=== PATIENT | female | born 1945 | race Caucasian/White ===

== ENCOUNTER → 2018-06-08 | Emergency (ER) | payer MEDICARE, MEDICAID ==
[~2018-06-08] MED LIST: Adacel (T-DAP) 0.5 ML VIAL ONE; Lidocaine 1% (PF) 30 ML VIAL ONE
[2018-06-08 15:34] LABS: #Basophils 0.1 thou/uL (0.0-0.2); #Eosinphils 0.1 thou/uL (0.0-0.7); #Lymphocytes 1.2 thou/uL (1.20-3.40); #Monocytes 0.7 thou/uL (0.11-0.59); #Neutrophils 2.9 thou/uL (1.40-6.50); %Basophils 1.1 % (0.0-1.0); %Eosinophils 1.4 % (0.0-10.0); %Lymphocytes 24.9 % (21.0-51.0); %Monocytes 14.2 % (0.0-10.0); %Neutrophils 58.4 % (42.0-75.0); Hemoglobin 12.4 g/dL (12.0-16.0); Mean Corpuscular HGB CONC 34.7 g/dL (32.0-36.0); Mean Corpuscular Hemoglobin 35.5 pg (27.0-31.0); Mean Platelet Volume 7.1 fL (7.4-10.4); Platelet Count 166 thou/uL (130-400); Red Blood Cell (RBC) Count 3.49 mill/uL (4.20-5.40); White Blood Cell (WBC) Count 4.9 thou/uL (4.8-10.8)
[2018-06-08 15:42] LABS: INR-International Normal Ratio 1.1; PTT 32.8 SEC (22.9-36.1); Prothrombin Time 14.7 SEC (12.0-14.7)
--- NOTE | 2018-06-08 15:47 | RAD ---
RIGHT KNEE FOUR VIEWS: History: 72-year-old female with history of right knee pain after a fall. Comparison: 08-17-17 FINDINGS: There is extensive soft tissue fullness and subcutaneous fat stranding which appears stable. Tricompa rtment degenerative and osteoarthrosis changes. No evidence for acute fracture or dislocation. IMPRESSION: Prominent soft tissues. Tricompartment degenerative changes without acute fracture. POS: [facility]
--- NOTE | 2018-06-08 15:50 | CT ---
HEAD CT WITHOUT CONTRAST: Comparison: 05-05-16 History: Fall, pain. Comparison: None. Technique: Noncontrast head CT is performed from skull base to skull vertex. FINDINGS: No parenchymal hemorrhage. No extraaxial hematoma. No midline shift. Basilar cisterns are patent. Bra in volume, age appropriate. Cortical swenson white matter differentiation is preserved. Ventricles and s ulci are patent and symmetric. Chronic small vessel ischemic changes white matter noted. Possible pineal cyst is noted. There is hyperdensity in the left maxillary sinus with evidence of left periorbital soft tissue swell ing. Hemorrhage due to trauma is suspected. Evaluation is incomplete. Refer to face CT for further de tails. Calvarium is intact. IMPRESSION: 1. No post-traumatic sequellae. 2. Left periorbital post-traumatic changes. Hyperdensity in the left maxillary sinus likely due to fr acture. Refer to facial CT report for further details. POS: [facility]
--- NOTE | 2018-06-08 15:51 | CT ---
CT CERVICAL SPINE: History: Cervical spine pain after fall. Neck pain. The patient is also complaining of tingling and n umbness. Technique: Noncontrast enhanced CT images cervical spine obtained. FINDINGS: Images demonstrate no evidence of acute cervical spine fractures. No evidence of subluxations or bony lesions seen. IMPRESSION: Normal CT cervical spine. POS: [facility]
[2018-06-08 15:54] LABS: ALT (SGPT) 14 U/L (8-55); AST (SGOT) 19 U/L (5-34); Albumin 3.5 g/dL (3.4-4.8); Alkaline Phosphatase 137 U/L (40-150); Anion Gap 13 mmol/L (10-20); BUN (Urea Nitrogen) 18 mg/dL (9.8-20.1); Bilirubin, Total 0.7 mg/dL (0.2-1.2); Calc. Creatinine Clearance 0 mL/min (70-130); Calcium 8.6 mg/dL (7.8-10.44); Carbon Dioxide 26 mmol/L (23-31); Chloride 96 mmol/L (98-107); Estimated GFR-MDRD 76; Globulin 2.6 g/dL (2.4-3.5); Glucose 134 mg/dL (83-110); Potassium 4.2 mmol/L (3.5-5.1); Protein, Total 6.1 g/dL (6.0-8.3); Sodium 131 mmol/L (136-145)
--- NOTE | 2018-06-08 16:03 | CT ---
FACE CT WITHOUT CONTRAST: History: Fall, post-traumatic pain and swelling. Comparison: None. Technique: Maxillofacial CT is performed in the axial plane. Sagittal and coronal reformatted images are submitted for interpretation. FINDINGS: Visualized brain parenchyma is unremarkable. Visualized aerodigestive tract is unremarkable. No obvious masses in the oral cavity. Evaluation is l imited by dental amalgam artifact. Midline fatty roof of the tongue is preserved. There is no prevert ebral soft tissue swelling. Visualized upper cervical vertebrae are unremarkable. There is adequate aeration of the visualized mastoid air cells. There is appropriate aeration of the visualized frontal sinuses, ethmoid air cells, sphenoid sinuses and right maxillary sinus. Zygomatic arches are intact. Maxilla and mandible are intact. Pterygoid plates are intact. Nasal bones are intact. There is left orbital soft tissue swelling and hematoma. Bilateral ocular lens implants are appropria tely located. Both globes are intact. Intraconal fat is preserved. There is induration of the fat in the inferior aspect of the left orbits. There are small pockets of air noted. There is a fracture in volving the anterior left orbital floor. There is induration of the inferior rectus muscle along the mid to distal aspect. Correlate clinically. Obvious entrapment is not appreciated. There is hyperdens ity in the left maxillary sinus due to post-traumatic hemorrhage. IMPRESSION: 1. Left orbital hematoma and swelling. 2. Left orbital floor fracture, minimally displaced. 3. Post-traumatic change of the left maxillary sinus. 4. Induration of the left inferior orbital rectus muscle. Correlate clinically for entrapment. POS: [facility]
== END ==
LOC: ERS 13:49
DX: S01.511A Laceration without foreign body of lip, initial encounter (principal); S00.83XA Contusion of other part of head, initial encounter; S05.12XA Contusion of eyeball and orbital tissues, left eye, initial encounter; S80.01XA Contusion of right knee, initial encounter; E11.9 Type 2 diabetes mellitus without complications; F41.9 Anxiety disorder, unspecified; F32.9 Major depressive disorder, single episode, unspecified; Z79.899 Other long term (current) drug therapy; W01.0XXA Fall on same level from slipping, tripping and stumbling without subsequent striking against object, initial encounter
CPT/HCPCS: 12011; 36415; 70450; 70486; 72125; 80053; 85025; 85610; 85730; 90471; 90715; J2001

== ENCOUNTER 2019-01-07 18:54 | Inpatient (IN) | payer MEDICARE, MEDICAID ==
--- NOTE | 2019-01-07 19:27 | RAD ---
CHEST ONE VIEW: History: Fever. Comparison: 07-10-18 FINDINGS: Heart size is mildly enlarged. There is mild engorgement of the right peritracheal soft tissues. Mild pulmonary venous congestion. No pneumothorax. IMPRESSION: Fullness of the right perihilar soft tissues and right peritracheal soft tissues. This may reflect en gorgement of the vascular pedicle. Follow up after diaresis is recommended. POS: [facility]
[2019-01-07 19:45] LABS: #Lymphocytes 0.7 thou/uL (1.20-3.40); #Monocytes 0.8 thou/uL (0.11-0.59); #Neutrophils 5.7 thou/uL (1.40-6.50); %Basophils 0.2 % (0.0-1.0); %Eosinophils 0.2 % (0.0-10.0); %Lymphocytes 9.7 % (21.0-51.0); %Monocytes 10.8 % (0.0-10.0); %Neutrophils 79.1 % (42.0-75.0); Hemoglobin 7.7 g/dL (12.0-16.0); Mean Corpuscular HGB CONC 33.1 g/dL (32.0-36.0); Mean Corpuscular Hemoglobin 33.8 pg (27.0-31.0); Platelet Count 233 thou/uL (130-400); RBC Distribution Width 16.3 % (11.5-14.5); Red Blood Cell (RBC) Count 2.26 mill/uL (4.20-5.40); White Blood Cell (WBC) Count 7.2 thou/uL (4.8-10.8)
[2019-01-07 20:04] LABS: ALT (SGPT) Less than 7 U/L (8-55); AST (SGOT) 12 U/L (5-34); Albumin 3.3 g/dL (3.4-4.8); Alkaline Phosphatase 95 U/L (40-150); Anion Gap 17 mmol/L (10-20); BUN (Urea Nitrogen) 24 mg/dL (9.8-20.1); Bilirubin, Total 0.8 mg/dL (0.2-1.2); Calc. Creatinine Clearance 0 mL/min (70-130); Calcium 8.6 mg/dL (7.8-10.44); Carbon Dioxide 19 mmol/L (23-31); Chloride 103 mmol/L (98-107); Estimated GFR-MDRD 47; Globulin 3.2 g/dL (2.4-3.5); Glucose 170 mg/dL (83-110); Potassium 4.8 mmol/L (3.5-5.1); Protein, Total 6.5 g/dL (6.0-8.3); Sodium 134 mmol/L (136-145)
[2019-01-07] MEDS ORDERED: Sodium Chloride 0.9% 100 ML ONE ×2 (20:09→21:22)
[2019-01-07] MEDS ORDERED: cefTRIAXone\\ROCEPHIN 2 GM VIAL ONE (20:09)
[2019-01-07 20:45] LABS: Bilirubin Negative (Negative); Blood, Urine Large (Negative); Clarity TURBID (Clear); Glucose, Urine (Dipstick) Negative (Negative); Leukocyte Large (Negative); Nitrite Positive (Negative); Protein, Urine (Dipstick) 100 mg/dL (Neg-Trace); Specific Gravity, Urine 1.016 (1.002-1.036); Urobilinogen 0.2 mg/dL (0.2-1.0); pH, Urine 5.5 (5.0-9.0)
[2019-01-07 20:47] LABS: Bacteria/HPF 4+ HPF (None Seen); Hyaline Casts/LPF 7-10 HYALINE CAST LPF (0-3 Hyaline); Pathc Cast-AUWi Flag 2.33 (0-2.49); Squamous Epithelial None Seen HPF (0-3)
[2019-01-07] MEDS ORDERED: Azithromycin 500 MG VIAL ONE (21:22)
[2019-01-07] MEDS ORDERED: Ondansetron PF 4 MG/2 ML Vial IVP PRN (22:05)
[2019-01-07] MEDS ORDERED: Sodium Chloride 0.9% 1,000 ML IV SCH (22:15)
[2019-01-07] MEDS: Sodium Chloride 0.9% 1,000 ML IV SCH (23:54)
[2019-01-07] MEDS: Acetaminophen 325 MG TAB PO PRN (23:54)
[2019-01-08] MEDS ORDERED: Ibuprofen 600 MG TAB PO SCH (01:15)
[2019-01-08 02:10] LABS: #Lymphocytes 0.4 thou/uL (1.20-3.40); #Monocytes 0.1 thou/uL (0.11-0.59); #Neutrophils 3.1 thou/uL (1.40-6.50); %Eosinophils 0.5 % (0.0-10.0); %Lymphocytes 9.8 % (21.0-51.0); %Monocytes 3.6 % (0.0-10.0); %Neutrophils 86.1 % (42.0-75.0); Hemoglobin 10.4 g/dL (12.0-16.0); Mean Corpuscular HGB CONC 32.9 g/dL (32.0-36.0); Mean Corpuscular Hemoglobin 32.9 pg (27.0-31.0); Mean Platelet Volume 7.1 fL (7.4-10.4); Platelet Count 161 thou/uL (130-400); RBC Distribution Width 16.3 % (11.5-14.5); Red Blood Cell (RBC) Count 3.17 mill/uL (4.20-5.40); White Blood Cell (WBC) Count 3.6 thou/uL (4.8-10.8)
--- NOTE | 2019-01-08 02:17 | HP ---
CHIEF COMPLAINT: Fever. HISTORY OF PRESENT ILLNESS: She is a 73-year-old woman with history of hypertension, rheumatoid arthritis, and hyperlipidemia, presented to the ER with fever of 101. The patient complained of fever for last 1 day with burning sensation with urination. No chest pain. No nausea, no vomiting, no diarrhea. She is not feeling well for few days. She does have some cough. No short of breath. PAST MEDICAL HISTORY: She has history of hypertension, hyperlipidemia, rheumatoid arthritis, and diabetes. SOCIAL HISTORY: Denies alcohol, smoking, or drug history. FAMILY HISTORY: Noncontributory. MEDICATIONS: Medicines taking at home are, 1. Clonidine 0.1 mg b.i.d. 2. Metoprolol 50 mg b.i.d. 3. Losartan 100 mg daily. 4. Insulin sliding protocol. 5. Insulin Lantus 45 in the morning. 6. Lasix 20 mg daily. 7. Lipitor 10 mg daily. REVIEW OF SYSTEMS: CONSTITUTIONAL: She does have fever. No chills. EYES: Denies any eye pain or any vision changes. ENT: Denies any sore throat or rhinorrhea. CARDIOVASCULAR: Denies any chest pain, short of breath, or palpitations. RESPIRATORY: She does have some cough. No short of breath. No wheezing. GI: Denies any nausea, vomiting, abdominal pain, any diarrhea, hematemesis, or melena. GENITOURINARY: She does have reports of dysuria. Denies any frequency or urgency. MUSCULOSKELETAL: Negative musculoskeletal review of systems. SKIN: No rash. Dry. NEUROLOGICAL: She denies any headache or any mental status changes. PHYSICAL EXAMINATION: GENERAL: She is an elderly woman, lying in the bed, not in distress. VITAL SIGNS: She has pulse 80, blood pressure 120/80, respiratory rate 20, and temperature 101. HEENT: Head is atraumatic and normocephalic. Pupils are round and reactive. Extraocular movements are intact. Nose and throat, normal. Tongue, mucosa moist. NECK: Supple. No JVD. CHEST: Shows normal vesicular breathing. No added sounds. CVS: S1 audible. No S3 or S4. ABDOMEN: Soft. Bowel sounds are audible. No organomegaly. No CVA angle tenderness. EXTREMITIES: Trace pedal edema. DANCE ENTERTAINER: Alert x3. No focal deficits. DIAGNOSTIC STUDIES: LABORATORY RESULTS: Urine shows large leukocyte esterase, 11 to 20 rbc, wbc greater than 50. WBC is 7.2, hemoglobin 7.7, hematocrit 23.1, and platelet count 233. Sodium 134, potassium 4.8, chloride 103, carbon dioxide 19, BUN 24, creatinine 1.13, lactic acid 2.6, calcium 8.6, and troponin less than 0.012. BNP 157.8. Albumin 3.3. IMAGING STUDIES: Chest x-ray shows mild pulmonary congestion. ASSESSMENT: 1. Sepsis with urinary tract infection. 2. Acute kidney injury. 3. Hyponatremia. 4. Chronic blood loss anemia. PLAN: 1. Sepsis with UTI. Sepsis protocol. IV fluids. IV cefepime 2 g 12 hourly and follow blood culture and urine culture. 2. Acute kidney injury with hypovolemia with sepsis with urinary tract infection. Continue IV fluids. Monitor BMP. 3. Hyponatremia, mild, 134. Continue IV fluid and monitor BMP. 4. Anemia. Hemoglobin is 7.7. Could be chronic blood loss. We will continue to monitor and check iron studies and ferritin and TIBC. Transfuse if less than 7. 5. DVT prophylaxis. SCDs. No Lovenox because there could be history of bleeding. 6. Full code. Job ID: [id number]
[2019-01-08 02:26] LABS: Lactic Acid 2.6 mmol/L (0.5-2.2)
[2019-01-08 02:32] LABS: Anion Gap 13 mmol/L (10-20); BUN (Urea Nitrogen) 20 mg/dL (9.8-20.1); Calc. Creatinine Clearance 80 mL/min (70-130); Calcium 8.3 mg/dL (7.8-10.44); Carbon Dioxide 22 mmol/L (23-31); Chloride 105 mmol/L (98-107); Estimated GFR-MDRD 50; Glucose 163 mg/dL (83-110); Potassium 4.1 mmol/L (3.5-5.1); Sodium 136 mmol/L (136-145)
[2019-01-08] MEDS: Vancomycin HCl 1.75 GM in Sodium Chloride 0.9% 500 ML IVPB SCH (03:54)
[2019-01-08] MEDS: Sodium Chloride 0.9% 1,000 ML IV SCH ×3 (05:16→21:35)
[2019-01-08] MEDS ORDERED: cloNIDine 0.1 MG TAB PO PRN (08:30)
[2019-01-08] MEDS: Cefepime 2 GM in Sodium Chloride 0.9% 100 ML IVPB SCH ×2 (08:35→20:13)
[2019-01-08] MEDS: Loratadine 10 MG TAB PO SCH (10:34)
[2019-01-08] MEDS: Hydroxychloroquine Sulfate 200 MG TAB PO SCH ×2 (10:34→20:13)
[2019-01-08] MEDS ORDERED: Dextrose 50% Abboject 50 ML SYRINGE SLOW IVP PRN (11:47)
[2019-01-08] MEDS ORDERED: Dextrose 5% in Water 1,000 ML IV PRN (11:47)
[2019-01-08] MEDS: Bupropion 150 MG SR TAB PO SCH (12:08)
[2019-01-08] MEDS: HumaLOG 300 UNITS/3 ML VIAL SC PRN ×2 (12:09→16:30)
[2019-01-08] MEDS: Atorvastatin Calcium 10 MG TAB PO SCH (20:13)
[2019-01-08] MEDS ORDERED: Polyethylene Glycol 3350 17 GM Packet PO PRN (21:52)
[2019-01-08] MEDS ORDERED: guaiFENesin ER 600 MG TAB PO SCH (22:00)
[2019-01-08] MEDS ORDERED: Doxepin HCl 25 MG CAP PO SCH (22:00)
[2019-01-09] MEDS: Acetaminophen 325 MG TAB PO PRN ×3 (00:44→21:30)
[2019-01-09] MEDS: Sodium Chloride 0.9% 1,000 ML IV SCH ×3 (01:30→16:00)
[2019-01-09] MEDS: Vancomycin HCl 1.75 GM in Sodium Chloride 0.9% 500 ML IVPB SCH (03:54)
[2019-01-09] MEDS: Bupropion 150 MG SR TAB PO SCH (08:16)
[2019-01-09] MEDS: Cefepime 2 GM in Sodium Chloride 0.9% 100 ML IVPB SCH ×2 (08:16→20:10)
[2019-01-09] MEDS: Hydroxychloroquine Sulfate 200 MG TAB PO SCH (08:16)
[2019-01-09] MEDS: guaiFENesin ER 600 MG TAB PO SCH ×2 (08:16→20:09)
[2019-01-09] MEDS: Loratadine 10 MG TAB PO SCH (08:16)
[2019-01-09 12:03] LABS: Bilirubin Negative (Negative); Blood, Urine Moderate (Negative); Clarity CLOUDY (Clear); Glucose, Urine (Dipstick) Negative (Negative); Leukocyte Large (Negative); Nitrite Negative (Negative); Protein, Urine (Dipstick) 30 mg/dL (Neg-Trace); Specific Gravity, Urine 1.011 (1.002-1.036); Urobilinogen 0.2 mg/dL (0.2-1.0)
[2019-01-09 12:05] LABS: Squamous Epithelial 0-3 HPF (0-3)
[2019-01-09 12:06] LABS: Pathc Cast-AUWi Flag 2.61 (0-2.49); Yeast-AUWi Flag 68.1 (0-25.0)
[2019-01-09 12:21] LABS: Hyaline Casts/LPF NONE SEEN LPF (0-3 Hyaline); WBC/HPF 21-50 HPF (0-3); Yeast-All Forms None Seen HPF (None Seen)
[2019-01-09 12:29] LABS: Bacteria/HPF Rare-Few HPF (None Seen); Urine Culture Reflex Yes Yes
[2019-01-09] MEDS: HumaLOG 300 UNITS/3 ML VIAL SC PRN ×3 (12:30→21:13)
--- NOTE | 2019-01-09 15:39 | CT ---
ABDOMEN CT WITHOUT CONTRAST PELVIC CT WITHOUT CONTRAST: Date: 01/09/19 HISTORY: Urosepsis. Urinary tract infection. COMPARISON: 04/26/16. FINDINGS: Indeterminate nodules in the right lower lobe measuring 5 and 6 mm. Heart size is upper normal. There are coronary artery calcifications. No significant pericardial fluid. Visualized aorta demonstrates atherosclerosis. No aneurysm. Limited evaluation of the solid organs due to lack of IV contrast. There is a hypodensity in the prox imal body of the pancreas measuring 2.9 x 1.7 cm, worrisome for a pancreatic neoplasm until proven ot herwise. Evaluation is limited due to technique. Limited evaluation of the remaining solid organs. Un remarkable gallbladder. There is no evidence of right-sided obstructive uropathy. There is marked dilatation of the left mary l pelvis and proximal left ureter. Hyperdense material in the lumen of the left renal pelvis and prox imal ureter, likely representing multiple stones versus hemorrhage/debris. Retrograde IVP may be bene ficial. Remainder of the left ureter is unremarkable. There is fluid tracking along both paracolic gutters, left greater than right. No mesenteric mass, free air, or lymphadenopathy. There is stranding of the fat adjacent to both common iliac arteries. Symmetric attenuation of the ps oas muscles. Limited evaluation of the alimentary canal due to lack of oral contrast. Gastric mucosa, duodenum, an d multiple normal caliber small bowel loops are identified. Ileocecal junction is normal. Colon gross ly unremarkable. Uterus and adnexal structures are unremarkable. There is evidence of soft tissue attenuation along th e superior left aspect of the uterine fundus, incompletely evaluated. The possibility of a uterine le iomyoma is raised. Unremarkable urinary bladder. No lytic or blastic lesions in the osseous structures. IMPRESSION: 1. Complex mass associated with the proximal pancreas, presumed to be malignancy until proven otherw ise. 2. Multiple hypodense nodules in the lung parenchyma, presuming to be metastatic disease until prove n otherwise. 3. Hyperdensities in lumen of left extrarenal collecting system which may represent small stones, bl ood products, or sediment/debris in the collecting system. Urology consultation for possible retrogra de IVP is recommended. 4. Nodules in right lower lobe, presumed to be metastasis until proven otherwise. Results of study discussed with Dr. Hermosillo on 01/09/19 at 1504 hours. CODE CR. POS: [facility]
--- NOTE | 2019-01-09 16:47 | PDOC.PN ---
- Subjective Encounter Start Date: 01/09/19 Encounter Start Time: 10:00 Subjective: pt up in bed no complains - Objective Resuscitation Status - Order Detail: 01/07/19 22:05 Resuscitation Status Routine Resuscitation Status: FULL: Full Resuscitation Discussed with: patient Vital Signs & Weight: Vital Signs (12 hours) Temp Pulse Resp BP BP Pulse Ox 01/09/19 15:50 98.5 F 99 18 102/69 94 L 01/09/19 13:05 98 16 125/69 95 01/09/19 11:43 98.5 F 98 16 107/57 L 107 H 01/09/19 09:49 129/63 01/09/19 09:09 96 01/09/19 07:36 98.4 F 96 16 134/80 96 Weight Admit Weight 238 lb 9.6 oz Weight 238 lb 9.6 oz I&O: 01/08/19 01/09/19 01/10/19 06:59 06:59 06:59 Intake Total 3275 2350 Balance 3275 2350 Result Diagrams: 01/08/19 02:01 01/08/19 02:01 Additional Labs: Accuchecks 01/09/19 01/09/19 01/08/19 11:41 05:04 20:07 POC Glucose 195 H 99 157 H Phys Exam - Physical Examination Neck: no nodes, no JVD, supple, full ROM Respiratory: no wheezing, no rales, no rhonchi, wheezing present, clear to auscultation bilateral Cardiovascular: RRR, no significant murmur, no rub, gallop, irregular Gastrointestinal: soft, non-tender, no distention, positive bowel sounds Dx/Plan (1) Complicated UTI (urinary tract infection) Code(s): N39.0 - URINARY TRACT INFECTION, SITE NOT SPECIFIED Status: Acute (2) Bacteremia Code(s): R78.81 - BACTEREMIA Status: Acute (3) SLE (systemic lupus erythematosus) Code(s): M32.9 - SYSTEMIC LUPUS ERYTHEMATOSUS, UNSPECIFIED Status: Chronic - Plan called lab about urine cx, which was not ordered. will resent another one -: will consult ID for bactremia -: will hold imuran * . Review of Systems - Review of Systems Cardiovascular: negative: chest pain, palpitations, orthopnea, paroxysmal nocturnal dyspnea, edema, light headedness, other Gastrointestinal: negative: Nausea, Vomiting, Abdominal Pain, Diarrhea, Constipation, Melena, Hematochezia, Other Genitourinary: negative: Dysuria, Frequency, Incontinence, Hematuria, Retention , Other - Medications/Allergies Allergies/Adverse Reactions: Allergies Allergy/AdvReac Type Severity Reaction Status Date / Time No Known Drug Allergies Allergy Verified 01/08/19 00:39 Medications: Current Medications Acetaminophen (Tylenol) 650 mg PO Q4H PRN PRN Reason: Headache/Fever/Mild Pain (1-3) Last Admin: 01/09/19 08:22 Dose: 650 mg Atorvastatin Calcium (Lipitor) 10 mg PO HS [facility] Last Admin: 01/08/19 20:13 Dose: 10 mg Bupropion HCl (Wellbutrin Sr) 300 mg PO DAILY [facility] Last Admin: 01/09/19 08:16 Dose: 300 mg Clonidine (Catapres) 0.1 mg PO BID PRN PRN Reason: BLOOD PRESSURE Dextrose/Water (Dextrose 50%) 25 gm SLOW IVP PRN PRN PRN Reason: Hypoglycemia Doxepin HCl (Sinequan) 25 mg PO [facility] Glucagon (Glucagon) 1 mg IM PRN PRN PRN Reason: Hypoglycemia Guaifenesin (Mucinex) 600 mg PO Q12HR [facility] Last Admin: 01/09/19 08:16 Dose: 600 mg Hydroxychloroquine Sulfate (Plaquenil) 200 mg PO BID [facility] Last Admin: 01/09/19 08:16 Dose: 200 mg Cefepime HCl 2 gm/ Sodium (Chloride) 100 mls @ 200 mls/hr IVPB Q12HR [facility] Last Admin: 01/09/19 08:16 Dose: 100 mls Vancomycin HCl 1.75 gm/ Sodium (Chloride) 500 mls @ 250 mls/hr IVPB 0400 [facility] Last Admin: 01/09/19 03:54 Dose: 500 mls Dextrose/Water (D5w) 1,000 mls @ 0 mls/hr IV .Q0M PRN PRN Reason: Hypoglycemia Sodium Chloride (Normal Saline 0.9%) 1,000 mls @ 75 mls/hr IV .[id number] [facility] Last Admin: 01/09/19 16:00 Dose: 1,000 mls Insulin Human Lispro (Humalog) 0 units SC .MILD SLIDING SCALE PRN PRN Reason: Mild Correctional Scale Last Admin: 01/09/19 15:59 Dose: 2 unit Loratadine (Claritin) 10 mg PO DAILY [facility] Last Admin: 01/09/19 08:16 Dose: 10 mg Miscellaneous Medication (Pharmacy To Dose) 1 each IVPB PRN PRN PRN Reason: . Ondansetron HCl (Zofran) 4 mg IVP Q6H PRN PRN Reason: Nausea/Vomiting Polyethylene Glycol (Miralax) 17 gm PO DAILYPRN PRN PRN Reason: CONSTIPATION Last Admin: 01/08/19 22:51 Dose: 17 gm
--- NOTE | 2019-01-09 16:51 | PDOC.PN ---
- Subjective Encounter Start Date: 01/08/19 Encounter Start Time: 10:00 Subjective: pt up in bed complains of pain to her lower ext - Objective Resuscitation Status - Order Detail: 01/07/19 22:05 Resuscitation Status Routine Resuscitation Status: FULL: Full Resuscitation Discussed with: patient Vital Signs & Weight: Vital Signs (12 hours) Temp Pulse Resp BP BP Pulse Ox 01/09/19 15:50 98.5 F 99 18 102/69 94 L 01/09/19 13:05 98 16 125/69 95 01/09/19 11:43 98.5 F 98 16 107/57 L 107 H 01/09/19 09:49 129/63 01/09/19 09:09 96 01/09/19 07:36 98.4 F 96 16 134/80 96 Weight Admit Weight 238 lb 9.6 oz Weight 238 lb 9.6 oz I&O: 01/08/19 01/09/19 01/10/19 06:59 06:59 06:59 Intake Total 3275 2350 Balance 3275 2350 Result Diagrams: 01/08/19 02:01 01/08/19 02:01 Additional Labs: Accuchecks 01/09/19 01/09/19 01/08/19 11:41 05:04 20:07 POC Glucose 195 H 99 157 H Phys Exam - Physical Examination Respiratory: no wheezing, no rales, no rhonchi, wheezing present, clear to auscultation bilateral Cardiovascular: RRR, no significant murmur, no rub, gallop, irregular Gastrointestinal: soft, non-tender, no distention, positive bowel sounds Musculoskeletal: edema present Dx/Plan (1) Complicated UTI (urinary tract infection) Code(s): N39.0 - URINARY TRACT INFECTION, SITE NOT SPECIFIED Status: Acute (2) Bacteremia Code(s): R78.81 - BACTEREMIA Status: Acute (3) SLE (systemic lupus erythematosus) Code(s): M32.9 - SYSTEMIC LUPUS ERYTHEMATOSUS, UNSPECIFIED Status: Chronic - Plan will continue abx for now -: wound care for compression stockings -: will start her on hydroxychloroquin * . Review of Systems - Review of Systems Respiratory: negative: Cough, Dry, Shortness of Breath, Hemoptysis, SOB with Excertion, Pleuritic Pain, Sputum, Wheezing Cardiovascular: negative: chest pain, palpitations, orthopnea, paroxysmal nocturnal dyspnea, edema, light headedness, other Gastrointestinal: negative: Nausea, Vomiting, Abdominal Pain, Diarrhea, Constipation, Melena, Hematochezia, Other - Medications/Allergies Allergies/Adverse Reactions: Allergies Allergy/AdvReac Type Severity Reaction Status Date / Time No Known Drug Allergies Allergy Verified 01/08/19 00:39 Medications: Current Medications Acetaminophen (Tylenol) 650 mg PO Q4H PRN PRN Reason: Headache/Fever/Mild Pain (1-3) Last Admin: 01/09/19 08:22 Dose: 650 mg Atorvastatin Calcium (Lipitor) 10 mg PO HS [facility] Last Admin: 01/08/19 20:13 Dose: 10 mg Bupropion HCl (Wellbutrin Sr) 300 mg PO DAILY [facility] Last Admin: 01/09/19 08:16 Dose: 300 mg Clonidine (Catapres) 0.1 mg PO BID PRN PRN Reason: BLOOD PRESSURE Dextrose/Water (Dextrose 50%) 25 gm SLOW IVP PRN PRN PRN Reason: Hypoglycemia Doxepin HCl (Sinequan) 25 mg PO [facility] Glucagon (Glucagon) 1 mg IM PRN PRN PRN Reason: Hypoglycemia Guaifenesin (Mucinex) 600 mg PO Q12HR [facility] Last Admin: 01/09/19 08:16 Dose: 600 mg Cefepime HCl 2 gm/ Sodium (Chloride) 100 mls @ 200 mls/hr IVPB Q12HR [facility] Last Admin: 01/09/19 08:16 Dose: 100 mls Vancomycin HCl 1.75 gm/ Sodium (Chloride) 500 mls @ 250 mls/hr IVPB 0400 [facility] Last Admin: 01/09/19 03:54 Dose: 500 mls Dextrose/Water (D5w) 1,000 mls @ 0 mls/hr IV .Q0M PRN PRN Reason: Hypoglycemia Sodium Chloride (Normal Saline 0.9%) 1,000 mls @ 75 mls/hr IV .[id number] [facility] Last Admin: 01/09/19 16:00 Dose: 1,000 mls Insulin Human Lispro (Humalog) 0 units SC .MILD SLIDING SCALE PRN PRN Reason: Mild Correctional Scale Last Admin: 01/09/19 15:59 Dose: 2 unit Loratadine (Claritin) 10 mg PO DAILY [facility] Last Admin: 01/09/19 08:16 Dose: 10 mg Miscellaneous Medication (Pharmacy To Dose) 1 each IVPB PRN PRN PRN Reason: . Ondansetron HCl (Zofran) 4 mg IVP Q6H PRN PRN Reason: Nausea/Vomiting Polyethylene Glycol (Miralax) 17 gm PO DAILYPRN PRN PRN Reason: CONSTIPATION Last Admin: 01/08/19 22:51 Dose: 17 gm
--- NOTE | 2019-01-09 17:20 | CON ---
DATE OF CONSULTATION: 01/09/2019 REASON FOR CONSULTATION: Bacteremia. HISTORY OF PRESENT ILLNESS: A 73-year-old, whom I had seen in the recent past in 2016. At that time, she had presented for admission with history of type 2 diabetes with new onset of change in mental status and confusional state associated with intermittent fever. She had, had a 40-pound weight loss over the past previous months with decreased oral intake. She also had UTIs treated, had been admitted to a psychiatric hospital for management of possible psychosis. The patient had a history of rheumatoid arthritis and chronic stage 3 renal insufficiency. Our impression then was mental status changes with likely metabolic encephalopathy with marked weight loss, hypergammaglobulinemia. The differential diagnosis includes chronic infection including chronic meningitis, but the CSF evaluation was normal. An autoimmune syndrome was considered and autoimmune panel was positive and Rheumatology consult was completed by Dr. Alvarez. 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 She was treated with pulsed dose of corticosteroids. The brain MRI at that time demonstrated ischemic white matter changes in the pachymeningeal enhancement. Repeat MRI showed resolution of the pachymeningeal enhancement following the treatment with corticosteroids. At that point, antimicrobials and acyclovir were discontinued. Her herpes simplex assays were negative. Corticosteroids were continued. In the last note from Dr. Perez, the impression was toxic metabolic encephalopathy and he recommended continuation of Solu-Medrol and then switching to prednisone. She was not seen in the hospital since she was transferred to a rehab, eventually ended up in [place]. Dr. Persaud took care of her in 2017. She had some bilateral leg edema and some arthropathy of right knee, which improved and now she was admitted because of fever, which developed 1 to 2 days before admission with dysuria. She denied any headaches. No sore throat, odynophagia, or dysphagia. No visual symptoms. No back pain. No dyspnea or chest pain. No cough. Dysuria has improved. No other joint symptoms at this time other than chronic rheumatoid arthritis symptoms. PAST MEDICAL HISTORY: Systemic lupus erythematosus, rheumatoid arthritis, lupus cerebritis, type 2 diabetes, and hypertension. SOCIAL HISTORY: Never smoking. She lives in an assisted living place. FAMILY HISTORY: Noncontributory. ALLERGIES: NONE. CURRENT MEDICATIONS: 1. Tylenol. 2. Lipitor. 3. Wellbutrin. 4. Cefepime. 5. Catapres. 6. Sinequan. 7. Plaquenil. 8. Humalog insulin. 9. Claritin. 10. Zofran. 11. Vancomycin. PHYSICAL EXAMINATION: VITAL SIGNS: T-max 102.8, currently she is 98.5; blood pressure 107/57; pulse 98; respirations 16; and O2 sat 95%. SKIN: She has one area of spider angiomata in the anterior chest area and she has stasis dermatitis with venous insufficiency in lower extremities. Peripheral IV access and is voiding in the diaper. HEENT: Ocular movements conjugate. Sclerae are white. Conjunctivae are normal. Nasal and ear examination normal. Oral cavity was not particularly remarkable. She has numerous teeth in place with fairly decent shape. NECK: Supple. No jugular vein distention or carotid bruits. No lymphadenopathy. LUNGS: Symmetric. Clear breath sounds. HEART: S1 and S2, regular rate. No S3 or S4. ABDOMEN: Soft. No organomegaly or ascites. No bladder distention. EXTREMITIES: No acute joint inflammatory activity noted. Pulses are 1+ in dorsalis pedis. Moves extremities equally. NEUROLOGIC: She is awake and oriented. Mental state is much improved compared with the one in 2016. She is oriented, has fairly decent recollection. Follows commands. LABORATORY DATA: White cell count 7.2 and now 3.6, hemoglobin 7.7, MCV 102, platelets 233, neutrophils 79%. Chemistry with a creatinine of 1.13 and now 1.08, sodium 134 and 136. Transaminases, now alkaline phosphatase normal. Albumin 3.3. Urinalysis with greater than 50 wbc's. IMAGING DATA: The last abdomen and pelvis CTs from 2 years ago and it showed gastrostomy tube in place. Free intraperitoneal air probably from the procedure. There was some intraperitoneal contrast media noted. Moderate bilateral pleural effusions. ASSESSMENT: 1. Obesity. 2. Chronic renal insufficiency, stage 3. 3. Rheumatoid arthritis/systemic lupus erythematosus. 4. Previous cephalopathy, which responded to high-dose corticosteroids probably secondary to the autoimmune syndrome, still with marked improvement to this date. 5. Abnormal urinalysis with positive blood cultures with Klebsiella and I will see a urine culture submitted. She had a positive urine culture for Klebsiella in September last year. DISCUSSION: The most likely scenario is urosepsis associated with cystitis and pyelonephritis. Need to evaluate of postvoid residual to rule out the urinary retention, neurogenic bladder, and get a CT stone protocol to evaluate for stones and obstruction. Await on susceptibility profile of the Klebsiella, probably is going to be the same one from the urine sample from September, which was pansusceptible. Treatment will be probably not more than 10 to 14 days as long as there are no urological complications. Job ID: [id number]
[2019-01-09 17:38] LABS: INR-International Normal Ratio 1.3; PTT 35.9 SEC (22.9-36.1); Prothrombin Time 16.4 SEC (12.0-14.7)
[2019-01-09] MEDS: ALPRAZolam 0.25 MG TAB PO PRN (20:09)
[2019-01-09] MEDS: Doxepin HCl 25 MG CAP PO SCH (20:10)
[2019-01-09] MEDS: Atorvastatin Calcium 10 MG TAB PO SCH (20:11)
--- NOTE | 2019-01-09 20:27 | CON ---
DATE OF CONSULTATION: 01/09/2019 REASON FOR CONSULTATION: Preoperative evaluation. HISTORY OF PRESENT ILLNESS: Ms. Velasco is a very pleasant 73-year-old white female, very well known to myself, who comes to the hospital for fevers. She was diagnosed with a complex pancreatic mass, presumed to be malignant; multiple nodules in the lung parenchyma, presumed to be metastatic disease; hyperdensities in the lumen of the left extrarenal collecting system, which may represent small stones or blood products, so Urology was consulted and they are planning on doing a procedure on her tomorrow. She is my patient. She has known coronary artery disease. She had an abnormal stress test in September 2017. She underwent heart catheterization, which showed severe lesion on her mid LAD, which was stented with drug-coated stent. She was on Plavix for one year and finished her Plavix regimen in September 2018. She was kept on Plavix as the lesion was on her LAD and they usually do this for about 2 years if possible. She has been off the Plavix since Tuesday in preparation for possible procedures on her abdomen given her findings on a CT of the abdomen. She denies any chest pain, tightness or pressure. She has been asymptomatic since the stent was placed. She has not had any recurrence of her symptoms before the stenting. PAST MEDICAL HISTORY: 1. Coronary artery disease, status post stenting to the LAD as above. 2. Systemic lupus erythematosus. 3. Rheumatoid arthritis. 4. Lupus cerebritis. 5. Type 2 diabetes. 6. Hypertension. OUTPATIENT MEDICATIONS: 1. Tradjenta 5 mg a day. 2. Vitamin D3. 3. Levemir. 4. Vitamin B12. 5. Aspirin 81 a day. 6. Plavix 75 mg a day. 7. Lyrica 50 mg at bedtime. 8. Plaquenil 200 mg b.i.d. 9. Wellbutrin 200 mg a day. 10. Acetaminophen p.r.n. 11. Imuran 100 mg b.i.d. 12. Doxepin 50 mg at bedtime. 13. Nuedexta. 14. Ranitidine 150 mg b.i.d. 15. Folic acid. 16. Metoprolol 50 mg b.i.d. 17. Lexapro 20 mg a day. 18. Risperdal. 19. Potassium chloride 20 mEq a day. 20. Lasix 20 mg a day. 21. Prednisone 5 mg a day. 22. Losartan 100 mg a day. ALLERGIES: NO KNOWN DRUG ALLERGIES. SOCIAL HISTORY: No alcohol, tobacco or drugs. Lives in assisted living. FAMILY HISTORY: No early coronary artery disease. REVIEW OF SYSTEMS: A 12-point review of systems was done and was found to be negative unless stated in the history of present illness. PHYSICAL EXAMINATION: VITAL SIGNS: Temperature 98.5, pulse 99, respiratory rate 18, sat 94% on room air, and blood pressure 102/69. GENERAL: Awake, alert, and oriented x3. No distress. HEENT: Normocephalic and atraumatic. NECK: Supple. LUNGS: Clear. CARDIOVASCULAR: S1 and S2. No S3 or S4. No murmurs. ABDOMEN: Soft with positive bowel sounds. EXTREMITIES: Lower extremities, 2+ edema. They are wrapped for her chronic lymphedema. SKIN: Warm and dry. LABORATORY WORK: CBC with a white count of 7.2, hemoglobin of 7.7, hematocrit of 23, and platelet count of 233. Her hemoglobin has improved to 10.4. Coags were reviewed. Chemistry was reviewed. Sodium 136, potassium 4.1, BUN and creatinine are normal. GFR is 50. Lactic acid was 2.6 at that time. BNP was 157. Troponin is negative x2. Albumin of 3.3. UA; yellow, cloudy, positive urine culture. Abdominal pelvic CT was reviewed. She has a mass in her pancreas, which appears to be malignant with mets to the lungs if the nodules in lung are from metastatic disease. ASSESSMENT/PLAN: 1. New finding of abdominal masses concerning for malignancy per primary team. 2. Preoperative surgical evaluation. She is at intermediate risk for intermediate risk procedure. She had a stent to her LAD over a year ago and she is completely asymptomatic. May proceed with said interventions with no further therapies to change risk. 3. Coronary artery disease, stable. No ACS. 4. Left-sided obstructive uropathy. To undergo procedure by Dr. Kyle Gonzalez tomorrow. 5. May stay off the Plavix indefinitely until her abdominal situation is settled. 6. We will follow. Job ID: [id number]
--- NOTE | 2019-01-09 23:36 | CON ---
DATE OF CONSULTATION: 01/09/2019 REASON FOR CONSULT: History of left hydronephrosis, possible left renal pelvic ureteral calculi. HISTORY OF PRESENT ILLNESS: Ms. Velasco is a pleasant 73-year-old female with history of hypertension, diabetes, rheumatoid arthritis, history of coronary artery disease, lupus, who is admitted for mental status changes. The patient lives in assisted living, presents with her daughter at bedside. She presented with fever of 102, currently she is afebrile, hemodynamically stable. She is not tachycardic. She is alert and lucid and provides her subjective history. She does relate history of coronary artery disease, stent placement by Dr. Stanley, September 2017 with EF of 70%. Has been on Plavix, last Plavix dose this Tuesday. Plavix and immunosuppressants have been discontinued since her arrival. She states that she has chronic lower back pain, has occasional recurrent UTI. She denies history of gross hematuria. Had some dysuria on arrival and continues to do so. However, with fluid, she is feeling better. Dr. Hermosillo was consulted regarding a blood culture positive for Klebsiella, CT of the abdomen and pelvis was ordered by Dr. Hermosillo, stone protocol, demonstrating multiple pathologic findings of pulmonary nodules, pancreatic mass concerning for malignancy, and also left hydronephrosis due to density in the left renal pelvis and proximal ureter with differential diagnosis of hemorrhagic debris and possible stone. She is currently asymptomatic and appears to be comfortable. She has had incontinence in her assisted living. She denies history of prior kidney stones and she denies history of gross hematuria. 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 PAST SURGICAL HISTORY: Includes coronary artery catheterization, coronary stent placement, September 2017 with EF of 70% by Dr. Stanley. History of PEG tube and removal by Dr. Cox, Shruthi and A. FAMILY HISTORY: Daughter is alive with diabetes. SOCIAL HISTORY: She is nonsmoker, social drinker. She lives in [facility] followed by Dr. Persaud. HOME MEDICATIONS: Include 1. Simvastatin. 2. Lantus. 3. NovoLog. 4. Vitamin D. 5. Lasix 40 mg daily. 6. Ranitidine. 7. Doxepin. 8. Bupropion. 9. Iron. 10. Nuedexta. 11. Risperdal. 12. Prednisone 10 mg one p.o. daily. 13. Losartan. 14. Metoprolol. 15. Clonidine. 16. Melatonin. 17. Azathioprine. 18. Hydroxychloroquine. 19. Lyrica. 20. Loratadine. ALLERGIES: NO KNOWN DRUG ALLERGIES. REVIEW OF SYSTEMS: A 10-point review of systems as above, otherwise noncontributory. CURRENT MEDICATIONS: Plavix has been discontinued on admission. Currently taking 1. Tylenol. 2. . 3. Lipitor. 4. Wellbutrin. 5. Cefepime. 6. Vancomycin. 7. Catapres. 8. Doxepin. 9. Glucagon. 10. Mucinex. 11. Humalog. 12. Claritin. 13. Zofran. 14. MiraLAX. 15. Aspirin 81 mg. PHYSICAL EXAMINATION: VITAL SIGNS: T-max of 100. On arrival, she had 102, 48 hours ago. Her highest temperature over the last 24 hours is 100.0, T current of 98.5, heart rate 99, saturation 94%, respiratory rate 18, blood pressure 102/69. She is incontinent. Strict I's or O's not documented. GENERAL: The patient appears to be in no acute distress. Cooperative to physical exam. HEENT: Grossly unremarkable. HEART: Regular rate. LUNGS: Clear. ABDOMEN: Morbidly obese, protuberant. No rigidity. No rebound. No CVA tenderness. : I informed the nursing staff to place a De Leon catheter. They are attempting at bedside, therefore I took over. She does have significant atrophic vaginitis with decreased introitus. The urethral meatus is somewhat retracted cephalad. An 18-Swedish De Leon catheter was passed without difficulty, it is emitting clear light urine. No significant gross hematuria of concern. EXTREMITIES: Bilateral pitting edema. There is no calf tenderness. She has Kapil bandages wrapped around both extremities. No significant pelvic prolapse of concern. PERTINENT LABS: Her urinalysis on arrival, 30 of protein, 7-10 rbc's, 20-50 wbc 's, rare bacteria. However, culture was not obtained. Therefore, recheck UA was ordered by primary service. Unfortunately, on antibiotic therapy, obtained this morning, 30 of protein, moderate blood, it is yellow, large leukocytes, 7-10 rbc 's, 20-50 wbc's, no epithelials, no significant bacteria. Blood sugars have been running 195, 184. Lactic acid is within normal limits at 1.4, on arrival it was 2.6. Current white count 3.6, hemoglobin 10.4, platelet 161. No significant bandemia, 86 segs. CBC on arrival 7.2. INR is 1.1, PTT of 32, however, this is from May 2018. Sodium today is 136, creatinine 1.0. Hemoglobin A1c is 6.[address] of the abdomen and pelvis, stone protocol, which I reviewed myself: 1. Indeterminate right lower lobe pulmonary nodules, 2.9 cm right pancreatic body mass, worrisome for pancreatic carcinoma. 2. Right kidney is unremarkable. Left hydronephrosis with left renal pelvic, proximal ureteral hyperdense material, may represent multiple stones versus hemorrhage/debris. Remainder of the left ureter is unremarkable. Per my review , there is hyperdensity measuring approximately 2.5 cm in the renal pelvis extending to the proximal ureter just distal to the UPJ. Multiple hypodense nodules in the lung parenchyma, presumed to be metastatic disease unless proven otherwise. Uterus with likely uterine leiomyoma. Bladder is grossly unremarkable. IMPRESSION AND PLAN: Ms. Velasco is a 73-year-old female with past medical history 1. Rheumatoid arthritis. 2. Diabetes. 3. Coronary artery disease status post stent, on Plavix. 4. Morbid obesity. 5. Current admission due to history of fever. Blood culture on this admission demonstrates 2/2 sets positive for Klebsiella sensitivity pending. Currently on cefepime and vancomycin, responding appropriately on antibiotic therapy with resolution of elevated lactic acid, fever. 6. Left hydronephrosis with hyperdense material in the renal pelvis and proximal ureter of unclear etiology. 7. History of hyperuricemia with uric acid level March 2016. 8. Newly appreciated pancreatic mass with multiple pulmonary nodules concerning for metastatic disease. Discussion with patient at bedside. I informed the patient and daughter regarding differential diagnosis of CT findings concerning for malignancy. In addition to possible pancreatic malignancy, I cannot completely exclude differential diagnosis of left ureteral, renal pelvic mass of occult malignancy versus stone versus proteinaceous material, old blood clot. Nevertheless, she presents with history of fever, positive blood cultures and likely positive urine culture. I would recommend cysto, stent. As she has been on Plavix, she is a poor candidate for percutaneous nephrostomy drainage due to her body habitus, recent anticoagulation, moreover, if there is ddx of cancer, I would prefer stent and ureteroscopy, laser lithotripsy in a staged manner. She agrees, she is to be n.p.o. after midnight. If she is clinically stable, we will perform stent tomorrow morning. She does not appear to have significant hemodynamic compromise and appears to be responding to antibiotic regimen. Indications for staged ureteroscopy at a later date to definitively diagnose stone versus proteinaceous hemorrhagic debris versus possibility of occult malignancy was reviewed. 9. Newly appreciated pancreatic mass. Recommend GI, General Surgery referral, informed hospitalist. 10. History of coronary artery disease. Discussed with Dr. Stanley. The patient has been cleared to proceed with cysto, stent tomorrow, will esteban per primary service. De Leon catheter has been placed by MAEGAN. Job ID: [id number] MTDD
[2019-01-10 03:18] LABS: #Basophils 0.1 thou/uL (0.0-0.2); #Eosinphils 0.1 thou/uL (0.0-0.7); #Lymphocytes 0.6 thou/uL (1.20-3.40); #Monocytes 0.4 thou/uL (0.11-0.59); #Neutrophils 4.1 thou/uL (1.40-6.50); %Eosinophils 1.9 % (0.0-10.0); %Monocytes 8.1 % (0.0-10.0); Hemoglobin 9.4 g/dL (12.0-16.0); Mean Corpuscular HGB CONC 32.6 g/dL (32.0-36.0); Mean Platelet Volume 7.8 fL (7.4-10.4); Platelet Count 137 thou/uL (130-400); RBC Distribution Width 16.5 % (11.5-14.5); Red Blood Cell (RBC) Count 2.85 mill/uL (4.20-5.40); White Blood Cell (WBC) Count 5.3 thou/uL (4.8-10.8)
[2019-01-10 03:39] LABS: Vancomycin, Trough 12.4 ug/mL
[2019-01-10 03:41] LABS: ALT (SGPT) 9 U/L (8-55); AST (SGOT) 13 U/L (5-34); Albumin 2.8 g/dL (3.4-4.8); Alkaline Phosphatase 75 U/L (40-150); Anion Gap 12 mmol/L (10-20); BUN (Urea Nitrogen) 10 mg/dL (9.8-20.1); Bilirubin, Total 0.7 mg/dL (0.2-1.2); Calc. Creatinine Clearance 101 mL/min (70-130); Calcium 8.6 mg/dL (7.8-10.44); Carbon Dioxide 22 mmol/L (23-31); Chloride 107 mmol/L (98-107); Estimated GFR-MDRD 65; Globulin 3.3 g/dL (2.4-3.5); Glucose 103 mg/dL (83-110); Potassium 4.2 mmol/L (3.5-5.1); Protein, Total 6.1 g/dL (6.0-8.3); Sodium 137 mmol/L (136-145)
[2019-01-10] MEDS: Vancomycin HCl 1.75 GM in Sodium Chloride 0.9% 500 ML IVPB SCH ×2 (04:07→04:25)
[2019-01-10] MEDS: Sodium Chloride 0.9% 1,000 ML IV SCH ×2 (06:01→19:00)
[2019-01-10] MEDS ORDERED: Aspirin 81 mg Enteric Coated Tablet PO SCH (09:00)
[2019-01-10] MEDS ORDERED: Clopidogrel Bisulfate 75 MG TAB PO SCH ×2 (09:00)
[2019-01-10] MEDS: Cefepime 2 GM in Sodium Chloride 0.9% 100 ML IVPB SCH ×2 (09:21→20:47)
[2019-01-10] MEDS: Aspirin 81 mg Enteric Coated Tablet PO SCH (09:31)
[2019-01-10] MEDS: Bupropion 150 MG SR TAB PO SCH (09:32)
[2019-01-10] MEDS: guaiFENesin ER 600 MG TAB PO SCH ×2 (09:32→20:45)
[2019-01-10] MEDS: Loratadine 10 MG TAB PO SCH (09:34)
--- NOTE | 2019-01-10 10:04 | RAD ---
PORTABLE CHEST: Date: 01-10-19 Provided Clinical History: Shortness of breath. FINDINGS: Comparison is made with study dated 01-07-19. Cardiac silhouette appears enlarged which may be at least partially on the basis of portable techniqu e. Vascular calcification involves the aortic arch. Prominence of the pulmonary vasculature and pulmo nary interstitium is now noted. No large effusion or pneumothorax evident. IMPRESSION: Findings suggesting congestive failure or volume overload. Follow up is recommended. POS: T[facility]
[2019-01-10] MEDS ORDERED: Furosemide 40 MG/4 ML VIAL SLOW IVP SCH (10:15)
[2019-01-10] MEDS ORDERED: Iothalamate Meglumine 60% 50 ML VIAL FS ONE (10:28)
[2019-01-10] MEDS: Ipratropium Bromide 2.5 ml Neb NEB SCH ×4 (10:40→22:20)
[2019-01-10] MEDS ORDERED: Fentanyl 100 MCG/2 ML VIAL ONE (10:46)
[2019-01-10] MEDS ORDERED: Albuterol Sulfate HFA (OR ONLY) ONE (11:18)
--- NOTE | 2019-01-10 12:13 | RAD ---
INTRAOPERATIVE FLUOROSCOPY: HISTORY: Left ureteral stent insertion. COMPARISON: None. FINDINGS: Two Intraprocedural fluoroscopic views are submitted for interpretation. The first image demonstrates a wire along the expected course of the left ureter. The second image d emonstrates a double-J ureteral stent. The proximal pigtail is in the left renal pelvis. The distal pigtail is in the left aspect of the bladder. There is intrinsic hyperdensity noted in the left renal pelvis on both images. IMPRESSION: Fluoroscopy as above. POS: OLI
[2019-01-10 12:29] LABS: Actual Bicarbonate (HCO3a) 23.9 mEq/L (22-28); Base Excess (BEa) -0.4 mEq/L (-2.0 to +3.0); CO2 Tension 37.5 mmHg (35.0-45.0); Calcium, Ionized 1.09 mmol/L (1.12-1.30); Hemoglobin (Hb) 9.8 g/dL (12.0-16.0); Potassium - ABG Lab 4.21 mmol/L (3.70-5.30); Puncture Site RR; pH, Arterial 7.42 (7.35-7.45)
[2019-01-10] MEDS ORDERED: Furosemide 20 MG/2 ML VIAL ONE (12:34)
--- NOTE | 2019-01-10 12:55 | RAD ---
FRONTAL VIEW CHEST: Comparison: 07-10-18 Indication: Respiratory distress. FINDINGS: There is enlargement of the cardiac silhouette and prominence of bilateral pulmonary vasculature. The re is blunting of the left lateral costophrenic sulcus, stable. Vascular calcification present. There is bilateral vascular prominence at the perihilar regions. IMPRESSION: Findings which favor CHF. Correlate clinically. POS: PETAR
--- NOTE | 2019-01-10 13:08 | OP ---
DATE OF PROCEDURE: 01/10/2019 PREOPERATIVE DIAGNOSES: 1. A 73-year-old morbidly obese female with history of Klebsiella urosepsis. 2. CT demonstrating left renal pelvic proximal ureteral stone versus debris, possibility of proteinaceous mass, given clinical history, likely infected stone. POSTOPERATIVE DIAGNOSES: 1. A 73-year-old morbidly obese female with history of Klebsiella urosepsis. 2. CT demonstrating left renal pelvic proximal ureteral stone versus debris, possibility of proteinaceous mass, given clinical history, likely infected stone. PROCEDURES PERFORMED: Cystoscopy, left retrograde, 6 x 24 stent with distal tail in situ. ANESTHESIA: TIVA. COMPLICATIONS: None apparent. DISPOSITION: To recovery room in stable condition. INDICATIONS FOR PROCEDURE AND HISTORY: Ms. Velasco is a 73-year-old female with history of coronary artery disease, diabetes, who presented with history of fever. Workup demonstrates Klebsiella urosepsis. Blood culture positive, urine culture demonstrating gram-negative rods. She is currently managed with appropriate antibiotic therapy. CT was obtained by Infectious Disease, which demonstrated a large left renal pelvic proximal ureteral mass versus debris. There is a possibility that this is an occult malignancy; however, clinical history is consistent with most likely an infected stone. The patient and family were advised regarding diagnostic ureteroscopy at a later date. Given she has hydronephrosis , she presents for stent. We are unable to place a percutaneous nephrostomy tube as she is recently began on Plavix, moreover, she is morbidly obese with significant stone to skin distance. Indications for the procedure were reviewed with patient and family in detail including, but not limited to, bleeding, pain, infection, perioperative morbidity and mortality, PE, DVT. The patient and family are fully aware of secondary procedure at a later date. DESCRIPTION OF PROCEDURE: After an informed consent was signed, the patient was taken to the operating room, placed in a dorsal lithotomy position with the genital area prepped and draped in the usual surgical sterile fashion. She was provided broad-spectrum antibiotics with appropriate sensitivity. I did double cover her with Levaquin on-call to OR. The patient underwent TIVA uneventfully. She did have some respiratory distress this morning, however, it was thought to be anxiety induced. However, Anesthesia felt that we can proceed with under TIVA to decrease her risk of prolonged intubation. A 21-Cambodian cystoscope was utilized for cystoscopy, which demonstrated normal bladder mucosa. The UOs are mildly patulous bilaterally. An open-ended catheter was utilized to intubate the left UO. As she has morbid obesity, the fluoroscopy images are somewhat acceptable. We gently performed a retrograde pyelogram to opacify the location of her stone. Again, due to her morbid obesity, the pictures are somewhat hazy. A 0.35 Sensor wire was placed into the left mid pole and a 6 x 24 double-J ureteral stent was passed. She tolerated the procedure well. An 18-Cambodian two way De Leon catheter was placed to gravity. [place]-tinged urine was noted. Given her significant comorbidities, it would be prudent to observe the patient in the IMCU step down for minimum 24 hours. We will inform hospitalist. Continue her current antibiotic regimen. Job ID: [id number] MTDD
[2019-01-10] MEDS ORDERED: PROPOFOL 200 MG/20 ML VIAL ONE (13:31)
--- NOTE | 2019-01-10 15:58 | CON ---
DATE OF CONSULTATION: 01/10/2019 SERVICE: Pulmonary Medicine. REASON FOR CONSULTATION: IMCU patient. HISTORY OF PRESENT ILLNESS: The patient is a 73-year-old white female with past medical history significant for rheumatoid arthritis and diabetes, who presents to the hospital with a fever. Ultimately, she was identified as having a urinary tract infection complicated by stone. She is postoperative day 0 from a ureteral stent placement. Urology would like for the patient to be monitored closely in the IMCU over the next 12 hours to make certain she did not develop any systemic inflammatory response to the manipulation. Currently, I am looking at the patient in the PACU. She denies any current shortness of breath, nausea, vomiting, fevers, or chills. She has been on antibiotics ever since the . She has no specific complaints right now and denies having any flank discomfort. PAST MEDICAL HISTORY: 1. Hypertension. 2. Dyslipidemia. 3. Rheumatoid arthritis. 4. Type 2 diabetes mellitus. SOCIAL HISTORY: Negative for alcohol, tobacco, or illicit drug use. FAMILY HISTORY: Noncontributory. PAST SURGICAL HISTORY: 1. PEG tube placement and subsequent removal. 2. Tonsillectomy and adenoidectomy. 3. Ureteral stent placement. 4. History of cardiac catheterization with PCI. ALLERGIES: NO KNOWN DRUG ALLERGIES. MEDICATIONS: List of her inpatient medications was reviewed. No specific updates were made at this time. REVIEW OF SYSTEMS: General, head, ears, eyes, nose, throat, cardiovascular, respiratory, GI, , musculoskeletal, neurologic, and skin is negative except as mentioned in the HPI. PHYSICAL EXAMINATION: VITAL SIGNS: Currently, afebrile. Her T-max over the last several days has been 102.4. She has successfully cleared her inflammatory profile. Pulse 105, blood pressure 156/82, respirations 28, saturation 96% on 2 L nasal cannula. GENERAL: The patient is awake and alert, in no apparent distress. LUNGS: Excellent air entry without any prolonged expiratory phase or wheezing present. HEART: Normal rate, regular. ABDOMEN: Soft, nontender, and nondistended. Bowel sounds are positive. MUSCULOSKELETAL: No cyanosis or clubbing. No pitting in the bilateral lower extremities. NEUROLOGIC: Grossly nonfocal. LABORATORY DATA: WBC 5.3, hemoglobin 9.4, platelets 137,000. INR 1.3. A pH 7.42, pCO2 of 37, pO2 of 188. Basic metabolic profile and liver function studies are otherwise unremarkable. CEA 4.66. Glucose ranges from 113 to 227. Lactate was previously positive, but trended down to the normal range several days ago. BNP 157. Troponin is unremarkable. Urinalysis was originally positive for significant pyuria. Urine culture is growing gram-negative antonella from yesterday. Blood cultures x2 are positive for pansensitive Klebsiella pneumoniae. IMAGING DATA: Chest x-ray demonstrates findings consistent with slight volume overload including prominence of the pulmonary vasculature and possible small pleural effusion on the left. CT of the abdomen and pelvis demonstrates hyperdensities in the lumen of the left extrarenal collecting system, likely representing multiple stalactite small stones. There are also a large pancreatic mass and multiple smaller pulmonary nodules scattered throughout the lower lung pereira. Each one of these has a feeding vessel, which could very well be consistent with malignancy. Pleural effusions are noted. Interstitial fullness is also present, possibly suggestive of volume overload. ASSESSMENT: 1. Severe sepsis. 2. Hydroureter with nephrolithiasis. 3. Urostomy tube placement, postoperative day 0. 4. Bacteremia secondary to Klebsiella pneumoniae. 5. Pancreatic mass with bilateral pulmonary nodules, likely embolic. DISCUSSION AND PLAN: The patient will remain in the IMCU for close observation. If she remains hemodynamically stable into tomorrow, she can be considered for transition out of the IMCU. Her hospitalist has an action plan moving forward for workup of the pancreatic and pulmonary lesions. We will continue to follow along for the time being. We will watch for signs of volume overload. We will interrupt her IV fluids, and we will consider a dose of Lasix, particularly if her oxygen requirement starts to increase. 70 minutes have been devoted to this patient in various activities. I personally reviewed all imaging studies and laboratory data noted within this document. For fifty percent of this time, I was interacting with the patient at the bedside or coordinating care with the care team. For the remainder of the time I was immediately available to the patient in the hospital unit. Job ID: [id number] MTDD
--- NOTE | 2019-01-10 17:14 | PDOC.CTH ---
Cardiology Progress Note - Subjective She had worsening SOB. No chest pain. - Objective Vital Signs Temp Pulse Resp BP Pulse Ox 01/10/19 10:40 102 H 24 H 95 01/10/19 09:16 99.2 F 105 H 28 H 156/82 H 96 01/10/19 08:00 96 01/10/19 07:30 99.2 F 103 H 20 139/76 93 L Admit Weight 238 lb 9.6 oz Weight 238 lb 9.6 oz 01/09/19 01/10/19 01/11/19 06:59 06:59 06:59 Intake Total 3275 5022 Output Total 1750 Balance 3275 3272 - Labs Result Diagrams: 01/10/19 03:11 01/10/19 03:11 Troponin/CKMB Troponin I Less than 0.010 ng/mL (< 0.028) 01/07/19 19:12 - Assessment/Plan 1. Acute on chronic diastolic heart failure 2. JOSE MARTIN 3. Obstructive uropathy. 4. New onset pancreatic mass. PLAN: - One dose IV lasix today. - Likely her volume overload is related to obstructive uropathy. Should improve after stent placed. - Will follow.
[2019-01-10] MEDS ORDERED: INSULIN GLARGINE HUM REC ANLOG 1 UNIT SQ PRN (17:30)
[2019-01-10] MEDS: Doxepin HCl 25 MG CAP PO SCH ×2 (20:45→20:46)
[2019-01-10] MEDS: Atorvastatin Calcium 10 MG TAB PO SCH (20:45)
[2019-01-10] MEDS: Metoprolol Tartrate 50 MG TAB PO SCH (20:45)
[2019-01-10] MEDS: risperiDONE 1 MG TAB PO SCH (20:46)
[2019-01-10] MEDS: Pregabalin 50 MG CAP PO SCH (20:46)
[2019-01-10] MEDS ORDERED: Famotidine 20 MG TAB PO PRN (21:00)
[2019-01-10] MEDS: Acetaminophen 325 MG TAB PO PRN (21:04)
[2019-01-11] MEDS: Ipratropium Bromide 2.5 ml Neb NEB SCH ×6 (02:36→22:23)
[2019-01-11 03:22] LABS: #Eosinphils 0.2 thou/uL (0.0-0.7); #Lymphocytes 0.8 thou/uL (1.20-3.40); #Monocytes 0.7 thou/uL (0.11-0.59); #Neutrophils 3.2 thou/uL (1.40-6.50); %Basophils 0.5 % (0.0-1.0); %Eosinophils 3.9 % (0.0-10.0); %Lymphocytes 15.7 % (21.0-51.0); %Monocytes 14.9 % (0.0-10.0); Mean Corpuscular HGB CONC 32.6 g/dL (32.0-36.0); Platelet Count 134 thou/uL (130-400); RBC Distribution Width 16.3 % (11.5-14.5); Red Blood Cell (RBC) Count 2.73 mill/uL (4.20-5.40)
[2019-01-11 03:37] LABS: Vancomycin, Trough 13.7 ug/mL
[2019-01-11] MEDS: Vancomycin HCl 1.75 GM in Sodium Chloride 0.9% 500 ML IVPB SCH (04:17)
--- NOTE | 2019-01-11 05:35 | CON ---
DATE OF CONSULTATION: 01/10/2019 REASON FOR CONSULTATION: Pancreatic mass. HISTORY OF PRESENT ILLNESS: Ms. Mayra Velasco is a very pleasant 73-year-old hospitalized with fever and altered mental status. The patient had an abdominal CAT scan done on admission, which was a noncontrast study. The CAT scan shows left hydroureter and hydronephrosis. She also has had positive blood culture. The patient is on IV antibiotics. The patient underwent ureteral stent placement done by Dr. Garcia today. I was asked to see the patient because of pancreatic mass seen on CAT scan and also pulmonary nodules. The radiologist's impression is that the patient has pancreatic CA and possible metastasis. The patient is awake, alert and communicative. Mental status is back to baseline. The patient denies abdominal pain, nausea or vomiting. No history of weight loss. She does say she has dysuria of recent onset. The patient had seen me in 2016 and was hospitalized with altered mental status and encephalopathy. I did perform an EEG and PEG tube placement at that time. Subsequently, the patient was diagnosed to have lupus encephalitis, treated with IV steroids. The patient has improved tremendously. She does see, Dr. Charles who is a director external communications, at the present time. Although patient's abdominal CAT scan showing a pancreatic mass, she really has no abdominal pain, no nausea, vomiting. There is no history of any weight loss. She actually is obese. She has no relevant history. PAST MEDICAL HISTORY: 1. Lupus erythematosus. 2. Rheumatoid arthritis. 3. Lupus cerebritis in 2016. 4. Type 2 diabetes mellitus. 5. Hypertension. SOCIAL HISTORY: The patient does not smoke or drink alcohol. She lives in an assisted living care. ALLERGIES: NONE. FAMILY HISTORY: Unremarkable. MEDICATION LIST: Reviewed, which include: 1. Tylenol. 2. Lipitor. 3. Wellbutrin. 4. Cefepime. 5. Catapres. 6. Sinequan. 7. Plaquenil. 8. Humalog insulin. 9. Claritin. 10. Zofran. 11. Vancomycin. SYSTEM REVIEW: Remarkable for fever, dysuria, and altered mental status. No abdominal pain. No nausea or vomiting. PHYSICAL EXAMINATION: GENERAL: The patient is obese, appears comfortable. VITAL SIGNS: She is afebrile, temperature is , her pulse is 86, blood pressure is 110/70. HEENT: Conjunctivae clear. NECK: Supple. No adenitis or thyromegaly noted. CARDIOVASCULAR: First and second heart sounds heard. LUNGS: Clear to auscultation. ABDOMEN: Soft. Abdomen is nontender. No organomegaly or masses. Bowel sounds normal. EXTREMITIES: No edema. LABORATORY DATA: On admission showed a WBC of 7200, hemoglobin is 7.7, hematocrit is 27, MCV is 102, polymorph 79, and platelet count 233,000. Chem panel shows a creatinine of 1.1. Sodium 136. Liver function tests are normal. . Urinalysis shows bacteria. IMAGING: Abdominal CAT scan done showed a complex pancreatic head mass. There is also mention of pulmonary nodule. CLINICAL IMPRESSION: 1. A 73-year-old female with urosepsis, bacteremia, dilated left ureter. She underwent stent placement today. The CAT scan is a noncontrast study. It does show a pancreatic mass. 2. Urinary tract infection, septicemia. 3. Diabetes mellitus. 4. Hypertension. 5. History of lupus cerebritis in 2016. 6. Rheumatoid arthritis. RECOMMENDATION: 1. Continue IV antibiotics and supportive care. 2. I will recommend a CT scan of the abdomen with IV contrast and oral contrast. 3. Obtain CA 19-9. 4. We will plan for endosonography with biopsy as an outpatient. Job ID: [id number]
--- NOTE | 2019-01-11 05:57 | PDOC.PN ---
- Subjective Encounter Start Date: 01/10/19 Encounter Start Time: 08:15 Subjective: pt up in bed was sob, was given lasix. she also appeared anxious - Objective Resuscitation Status - Order Detail: 01/07/19 22:05 Resuscitation Status Routine Resuscitation Status: FULL: Full Resuscitation Discussed with: patient Vital Signs & Weight: Vital Signs (12 hours) Temp Pulse Resp BP Pulse Ox 01/11/19 04:00 98.6 F 79 20 162/83 H 100 01/11/19 02:36 73 18 100 01/10/19 22:20 83 18 99 01/10/19 20:00 99.1 F 99 01/10/19 19:41 105 H 21 H 99 Weight Admit Weight 238 lb 9.6 oz Weight 238 lb 9.6 oz I&O: 01/09/19 01/10/19 01/11/19 06:59 06:59 06:59 Intake Total 3275 5022 100 Output Total 1750 Balance 3275 3272 100 Result Diagrams: 01/11/19 03:10 01/10/19 03:11 Additional Labs: Accuchecks 01/11/19 01/10/19 01/10/19 04:01 21:26 11:42 POC Glucose 90 135 H 113 H Phys Exam - Physical Examination Neck: no nodes, no JVD, supple, full ROM Respiratory: wheezing present Cardiovascular: RRR, no significant murmur, no rub, gallop, irregular Gastrointestinal: soft, non-tender, no distention, positive bowel sounds Musculoskeletal: edema present Dx/Plan (1) Complicated UTI (urinary tract infection) Code(s): N39.0 - URINARY TRACT INFECTION, SITE NOT SPECIFIED Status: Acute (2) Bacteremia Code(s): R78.81 - BACTEREMIA Status: Acute (3) SLE (systemic lupus erythematosus) Code(s): M32.9 - SYSTEMIC LUPUS ERYTHEMATOSUS, UNSPECIFIED Status: Chronic (4) Bacteremia Code(s): R78.81 - BACTEREMIA Status: Acute (5) Pancreatic mass Status: Acute - Plan spoke with IR for lung nodule biopsy. will get ct chest/abd/pel -: pt s/p left uretheral stent -: pt had cardiac stent in 10/14 recommendation for asa/plavix was one year -: then asa. will hold her plaquenil and imuran * . Review of Systems - Review of Systems Respiratory: Shortness of Breath Cardiovascular: negative: chest pain, palpitations, orthopnea, paroxysmal nocturnal dyspnea, edema, light headedness, other Gastrointestinal: negative: Nausea, Vomiting, Abdominal Pain, Diarrhea, Constipation, Melena, Hematochezia, Other Genitourinary: negative: Dysuria, Frequency, Incontinence, Hematuria, Retention , Other - Medications/Allergies Allergies/Adverse Reactions: Allergies Allergy/AdvReac Type Severity Reaction Status Date / Time No Known Drug Allergies Allergy Verified 01/08/19 00:39 Medications: Current Medications Acetaminophen (Tylenol) 650 mg PO Q4H PRN PRN Reason: Headache/Fever/Mild Pain (1-3) Last Admin: 01/10/19 21:04 Dose: 650 mg Acetaminophen (Tylenol) 650 mg PO Q4H PRN PRN Reason: Fever/Mild Pain Alogliptin Benzoate (Alogliptin) 25 mg PO DAILY [facility] Alprazolam (Xanax) 0.25 mg PO BID PRN PRN Reason: Anxiety Last Admin: 01/09/19 20:09 Dose: 0.25 mg Aspirin (Ecotrin) 81 mg PO DAILY [facility] Last Admin: 01/10/19 09:31 Dose: Not Given Atorvastatin Calcium (Lipitor) 10 mg PO HS [facility] Last Admin: 01/10/19 20:45 Dose: 10 mg Bupropion HCl (Wellbutrin Sr) 300 mg PO DAILY [facility] Last Admin: 01/10/19 09:32 Dose: Not Given Clonidine (Catapres) 0.1 mg PO BID PRN PRN Reason: BLOOD PRESSURE Cyanocobalamin (Vitamin B-12) 1,000 mcg PO DAILY [facility] Dextrose/Water (Dextrose 50%) 25 gm SLOW IVP PRN PRN PRN Reason: Hypoglycemia Doxepin HCl (Sinequan) 50 mg PO HS [facility] Last Admin: 01/10/19 20:46 Dose: 50 mg Escitalopram Oxalate (Lexapro) 20 mg PO DAILY [facility] Famotidine (Pepcid) 20 mg PO BID PRN PRN Reason: Indigestion Folic Acid (Folvite) 1 mg PO DAILY [facility] Furosemide (Lasix) 20 mg PO .3XWEEK [facility] Glucagon (Glucagon) 1 mg IM PRN PRN PRN Reason: Hypoglycemia Guaifenesin (Mucinex) 600 mg PO Q12HR [facility] Last Admin: 01/10/19 20:45 Dose: 600 mg Cefepime HCl 2 gm/ Sodium (Chloride) 100 mls @ 200 mls/hr IVPB Q12HR [facility] Last Admin: 01/10/19 20:47 Dose: 100 mls Vancomycin HCl 1.75 gm/ Sodium (Chloride) 500 mls @ 250 mls/hr IVPB 0400 [facility] Last Admin: 01/11/19 04:17 Dose: 500 mls Dextrose/Water (D5w) 1,000 mls @ 0 mls/hr IV .Q0M PRN PRN Reason: Hypoglycemia Insulin Glargine 26 units/ (Miscellaneous Medication) 0.26 mls @ 0 mls/hr SC QAM [facility] Insulin Human Lispro (Humalog) 0 units SC .MILD SLIDING SCALE PRN PRN Reason: Mild Correctional Scale Last Admin: 01/09/19 21:13 Dose: 3 unit Ipratropium [place] (Atrovent) 2.5 ml NEB [id number] [facility] Last Admin: 01/11/19 02:36 Dose: 2.5 ml Loratadine (Claritin) 10 mg PO DAILY [facility] Last Admin: 01/10/19 09:34 Dose: Not Given Losartan Potassium (Cozaar) 100 mg PO DAILY [facility] Metoprolol Tartrate (Lopressor) 50 mg PO BID [facility] Last Admin: 01/10/19 20:45 Dose: 50 mg Miscellaneous Medication (Pharmacy To Dose) 1 each IVPB PRN PRN PRN Reason: . Non-Formulary Medication (Insulin Glargine,Hum.Rec.Anlog [Lantus Solostar]) 1 unit SQ QID PRN PRN Reason: Hyperglycemia Ondansetron HCl (Zofran) 4 mg IVP Q6H PRN PRN Reason: Nausea/Vomiting Last Admin: 01/09/19 20:10 Dose: 4 mg Polyethylene Glycol (Miralax) 17 gm PO DAILYPRN PRN PRN Reason: CONSTIPATION Last Admin: 01/08/19 22:51 Dose: 17 gm Potassium Chloride (K-Dur) 20 meq PO .3XWEEK [facility] Pregabalin (Lyrica) 50 mg PO HS [facility] Last Admin: 01/10/19 20:46 Dose: 50 mg Risperidone (Risperidone) 1 mg PO HS [facility] Last Admin: 01/10/19 20:46 Dose: 1 mg Sodium Chloride (Flush - Normal Saline) 10 ml IVF Q12HR [facility] Last Admin: 01/11/19 01:53 Dose: Not Given Sodium Chloride (Flush - Normal Saline) 10 ml IVF PRN PRN PRN Reason: Saline Flush Last Admin: 01/11/19 04:18 Dose: 10 ml
[2019-01-11 07:15] LABS: ALT (SGPT) Less than 7 U/L (8-55); AST (SGOT) 9 U/L (5-34); Albumin 2.6 g/dL (3.4-4.8); Alkaline Phosphatase 68 U/L (40-150); Anion Gap 15 mmol/L (10-20); BUN (Urea Nitrogen) 13 mg/dL (9.8-20.1); Bilirubin, Total 0.5 mg/dL (0.2-1.2); Calc. Creatinine Clearance 99 mL/min (70-130); Calcium 8.1 mg/dL (7.8-10.44); Carbon Dioxide 22 mmol/L (23-31); Chloride 103 mmol/L (98-107); Estimated GFR-MDRD 63; Globulin 3.1 g/dL (2.4-3.5); Glucose 81 mg/dL (83-110); Protein, Total 5.7 g/dL (6.0-8.3); Sodium 136 mmol/L (136-145)
[2019-01-11] MEDS ORDERED: ISOVUE-370 76%-LOCM 1 ML ONE (07:47)
[2019-01-11] MEDS: Cefepime 2 GM in Sodium Chloride 0.9% 100 ML IVPB SCH (08:20)
[2019-01-11] MEDS: Bupropion 150 MG SR TAB PO SCH (08:20)
[2019-01-11] MEDS: Metoprolol Tartrate 50 MG TAB PO SCH ×2 (08:22→21:06)
[2019-01-11] MEDS: Folic Acid 1 MG TAB PO SCH (08:22)
[2019-01-11] MEDS: Escitalopram Oxalate 20 mg Tablet PO SCH (08:22)
[2019-01-11] MEDS: Aspirin 81 mg Enteric Coated Tablet PO SCH (08:22)
[2019-01-11] MEDS: Loratadine 10 MG TAB PO SCH (08:22)
[2019-01-11] MEDS: Losartan 25 MG TAB PO SCH (08:22)
[2019-01-11] MEDS: Alogliptin 25 MG TAB PO SCH (08:22)
[2019-01-11] MEDS: guaiFENesin ER 600 MG TAB PO SCH ×2 (08:23→21:06)
[2019-01-11] MEDS: Cyanocobalamin (Vitamin B-12) 1,000 MCG TAB PO SCH (08:23)
--- NOTE | 2019-01-11 08:23 | PRG ---
DATE OF SERVICE: 01/11/2019 SUBJECTIVE: The patient is feeling well. Denies chest pain, shortness of breath, fever, chills. OBJECTIVE: VITAL SIGNS: Stable. She is afebrile. I's and O's 840 in and 1950 out. ABDOMEN: Soft, obese. BACK: No CVA tenderness. PERTINENT LABORATORY DATA: White count today is 5, hemoglobin 9.0, platelet 134. Creatinine 0.8. IMPRESSION AND PLAN: 1. Ms. Velasco is a 73-year-old female admitted for Klebsiella urosepsis. CT demonstrating large left renal pelvic hyperdensity, likely infectious stone. Other etiology such as malignancy cannot be completely ruled out. She is postop day # 1 cysto, left retrograde, 6 x 24 double-J ureteral stent, and is stable. 2. Pancreatic mass. GI workup in progress. Repeat CT is scheduled per GI. After convalescence from current urosepsis in few weeks, elective ureteroscopy, laser lithotripsy, pyeloscopy is advised. 3. History of coronary artery disease and congestive heart failure. Cardiology following. On diuretics. Continue De Leon catheter. We will follow. Job ID: [id number] MTDD
[2019-01-11] MEDS: Insulin Glargine 10 UNITS in Pre-Filled Syringe 1 EACH SC SCH (08:52)
[2019-01-11] MEDS ORDERED: Insulin Glargine 26 UNITS in Pre-Filled Syringe 1 EACH SC SCH (09:00)
[2019-01-11] MEDS ORDERED: Furosemide 20 MG TAB PO SCH (09:00)
[2019-01-11] MEDS ORDERED: Potassium Chloride 20 MEQ TAB PO SCH (09:00)
[2019-01-11] MEDS ORDERED: Levemir Flexpen 100 UNITS/ML PEN SC SCH (09:00)
[2019-01-11] MEDS ORDERED: Spironolactone 25 MG TAB PO SCH ×2 (09:08→09:45)
[2019-01-11] MEDS ORDERED: Furosemide 40 MG/4 ML VIAL SLOW IVP SCH (09:15)
--- NOTE | 2019-01-11 09:39 | PRG ---
DATE OF SERVICE: 01/11/2019 SUBJECTIVE: Ms. Wong is doing fair. She is having intermittent difficulty breathing and requiring extra treatments with nebulized therapy for shortness of breath and worsening of her "chest pain." OBJECTIVE: VITAL SIGNS: Blood pressure is 145/82, earlier was 162/83, pulse is in the 80s and sinus. LUNGS: Clear. CARDIAC: Normal S1, normal S2. ABDOMEN: Soft and nontender. She is obese. EXTREMITIES: Mild edema. ASSESSMENT: 1. Diastolic congestive heart failure, probably somewhat volume overloaded. 2. Coronary artery disease, stable. 3. Pancreatic mass. PLAN: 1. We will give her next dose of furosemide. 2. Add spironolactone tomorrow. The patient is getting quite a bit of fluid, especially with the intravenous antibiotics. Job ID: [id number] MTDD
--- NOTE | 2019-01-11 10:44 | CT ---
CT CHEST WITH CONTRAST CT ABDOMEN WITH CONTRAST CT PELVIS WITH CONTRAST: HISTORY: Pancreatic mass with lung metastasis. COMPARISON: CT stone protocol 01/09/2019. FINDINGS: There are innumerable pulmonary nodules in the lungs. An index nodule within the superior segment of right lower lobe axial image 18 measures up to 11 mm. Index lesion right upper lobe axial image 15 measures up to 6 mm. Small layering pleural effusions. Heart size is enlarged. Mild pulmonary venous congestion. No significant pericardial effusion. No axillary adenopathy. There is a hypodense mass within the ventral aspect of the pancreatic head and body junction measurin g 22 mm x 16 mm x 14 mm (transverse x AP x CC). No ductal dilatation of the pancreas. There has bee n interval placement of a left-sided double-J ureteral catheter. Relative to the prior examination, noncontrast examination had Hounsfield units of 40 in the left renal pelvis. Today's this left renal pelvis collection had Hounsfield units of 93. 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 There are also abnormal lymph nodes in the left perirenal space as well as some subcutaneous soft tissue nodules which are new from the 2016 study in the anterior perirenal space axial image 52 measuring 7 mm and 10 mm concerning for metastatic disease. There is hypoenhancement of the left kid myranda relative to the right kidney likely due to the partial obstruction of the left urothelial mass. This involves the left renal pelvis bulging of the proximal ureter. Abnormal left periaortic retrope ritoneal lymph node measures a centimeter in short axis on axial image 69. There is also abnormal en hancement in the superior pole left kidney measuring up to 3.6 cm which may reflect a superimposed ma ss within the superior pole left kidney. Mild presacral fluid. No dilated loops of large or small b owel. No suspicious osteolytic or osteoblastic lesions. No displaced rib fracture. IMPRESSION: 1. There is what appears to be an enhancing mass in then left renal collecting system involving the l eft renal pelvis with bulging of the proximal ureter. There are also what appears to be metastatic pe rirenal space lymph nodes as well as subcutaneous nodules as well as left periaortic retroperitoneal metastatic lymph nodes. The proximal left ureteral mass does have enhancement from the comparison no ncontrast exam of 01/09/2019 study and, therefore, is felt to be a malignant process and much less lik felecia hemorrhage and debris. 2. Indwelling left-sided double-J ureteral stent. 3. Abnormal round enhancement superior pole left kidney measuring 3.6 cm may reflect a superimposed renal cell carcinoma. 4. Mass of the ventral aspect of the pancreatic head and body junction concerning for malignancy as this does have enhancement relative to noncontrast study 2 days prior. 5. Innumerable pulmonary metastatic disease. This could be from the urothelial carcinoma or the mas s of the superior pole left kidney or the pancreatic mass. 6. For the pancreatic mass evaluation, endoscopic ultrasound and brushings is recommended. POS: [facility]
[2019-01-11] MEDS: cefTRIAXone\\ROCEPHIN 2 GM in Sodium Chloride 0.9% 100 ML IVPB SCH (13:28)
--- NOTE | 2019-01-11 15:23 | PDOC.PN ---
- Subjective Encounter Start Date: 01/11/19 Encounter Start Time: 11:45 Subjective: pt up in bed feels better today -: daughter at bedside updated on pt's medical issues - Objective Resuscitation Status - Order Detail: 01/07/19 22:05 Resuscitation Status Routine Resuscitation Status: FULL: Full Resuscitation Discussed with: patient Vital Signs & Weight: Vital Signs (12 hours) Temp Pulse Pulse Pulse Resp BP BP 01/11/19 14:07 83 18 01/11/19 10:33 90 20 01/11/19 09:51 92 91 119/50 L 117/52 L 01/11/19 07:32 88 18 01/11/19 07:05 01/11/19 04:00 98.6 F 79 20 BP Pulse Ox Pulse Ox Pulse Ox 01/11/19 14:07 95 01/11/19 10:33 97 01/11/19 09:51 100 99 01/11/19 07:32 100 01/11/19 07:05 98 01/11/19 04:00 162/83 H 100 Weight Admit Weight 238 lb 9.6 oz Weight 238 lb 9.6 oz Most Recent Monitor Data Heart Rate from ECG 80 NIBP 80/40 NIBP BP-Mean 53 Respiration from ECG 23 SpO2 98 I&O: 01/10/19 01/11/19 01/12/19 06:59 06:59 06:59 Intake Total 5022 840 Output Total 1750 1950 Balance 3272 -1110 Result Diagrams: 01/11/19 03:10 01/11/19 03:10 Additional Labs: Accuchecks 01/11/19 01/11/19 01/11/19 10:35 06:34 04:01 POC Glucose 154 H 93 90 01/10/19 21:26 POC Glucose 135 H Phys Exam - Physical Examination Respiratory: no wheezing, no rales, no rhonchi, wheezing present, clear to auscultation bilateral Cardiovascular: RRR, no significant murmur, no rub, gallop, irregular Gastrointestinal: soft, non-tender, no distention, positive bowel sounds Musculoskeletal: no edema, pulses present, edema present Neurological: non-focal, normal sensation, moves all 4 limbs Dx/Plan (1) Complicated UTI (urinary tract infection) Code(s): N39.0 - URINARY TRACT INFECTION, SITE NOT SPECIFIED Status: Acute (2) Bacteremia Code(s): R78.81 - BACTEREMIA Status: Acute (3) SLE (systemic lupus erythematosus) Code(s): M32.9 - SYSTEMIC LUPUS ERYTHEMATOSUS, UNSPECIFIED Status: Chronic (4) Bacteremia Code(s): R78.81 - BACTEREMIA Status: Acute (5) Pancreatic mass Status: Acute - Plan ct chest/abd/pel indicated left renal mass and multiple pulmonary nodules -: IR consulted for biopsy, will also consult onc. -: pt's iv fluids discontinued will check labs in am -: continue abx for now, daughter updated * . Review of Systems - Review of Systems Respiratory: negative: Cough, Dry, Shortness of Breath, Hemoptysis, SOB with Excertion, Pleuritic Pain, Sputum, Wheezing Cardiovascular: negative: chest pain, palpitations, orthopnea, paroxysmal nocturnal dyspnea, edema, light headedness, other Gastrointestinal: negative: Nausea, Vomiting, Abdominal Pain, Diarrhea, Constipation, Melena, Hematochezia, Other - Medications/Allergies Allergies/Adverse Reactions: Allergies Allergy/AdvReac Type Severity Reaction Status Date / Time No Known Drug Allergies Allergy Verified 01/08/19 00:39 Medications: Current Medications Acetaminophen (Tylenol) 650 mg PO Q4H PRN PRN Reason: Fever/Mild Pain Alogliptin Benzoate (Alogliptin) 25 mg PO DAILY COUNT INCLUDES THE [facility] Last Admin: 01/11/19 08:22 Dose: 25 mg Alprazolam (Xanax) 0.25 mg PO BID PRN PRN Reason: Anxiety Last Admin: 01/09/19 20:09 Dose: 0.25 mg Aspirin (Ecotrin) 81 mg PO DAILY COUNT INCLUDES THE [facility] Last Admin: 01/11/19 08:22 Dose: 81 mg Atorvastatin Calcium (Lipitor) 10 mg PO HS COUNT INCLUDES THE [facility] Last Admin: 01/10/19 20:45 Dose: 10 mg Bupropion HCl (Wellbutrin Sr) 300 mg PO DAILY COUNT INCLUDES THE [facility] Last Admin: 01/11/19 08:20 Dose: 300 mg Clonidine (Catapres) 0.1 mg PO BID PRN PRN Reason: BLOOD PRESSURE Cyanocobalamin (Vitamin B-12) 1,000 mcg PO DAILY COUNT INCLUDES THE [facility] Last Admin: 01/11/19 08:23 Dose: 1,000 mcg Dextrose/Water (Dextrose 50%) 25 gm SLOW IVP PRN PRN PRN Reason: Hypoglycemia Doxepin HCl (Sinequan) 50 mg PO HS COUNT INCLUDES THE [facility] Last Admin: 01/10/19 20:46 Dose: 50 mg Escitalopram Oxalate (Lexapro) 20 mg PO DAILY COUNT INCLUDES THE [facility] Last Admin: 01/11/19 08:22 Dose: 20 mg Famotidine (Pepcid) 20 mg PO BID PRN PRN Reason: Indigestion Folic Acid (Folvite) 1 mg PO DAILY COUNT INCLUDES THE [facility] Last Admin: 01/11/19 08:22 Dose: 1 mg Furosemide (Lasix) 20 mg PO .3XWEEK COUNT INCLUDES THE [facility] Glucagon (Glucagon) 1 mg IM PRN PRN PRN Reason: Hypoglycemia Guaifenesin (Mucinex) 600 mg PO Q12HR COUNT INCLUDES THE [facility] Last Admin: 01/11/19 08:23 Dose: 600 mg Dextrose/Water (D5w) 1,000 mls @ 0 mls/hr IV .Q0M PRN PRN Reason: Hypoglycemia Insulin Glargine 10 units/ (Miscellaneous Medication) 0.1 mls @ 0 mls/hr SC QAM COUNT INCLUDES THE [facility] Last Admin: 01/11/19 08:52 Dose: 0.1 mls Ceftriaxone Sodium 2 gm/ (Sodium Chloride) 100 mls @ 200 mls/hr IVPB Q24HR COUNT INCLUDES THE [facility] Last Admin: 01/11/19 13:28 Dose: 100 mls Insulin Human Lispro (Humalog) 0 units SC .MILD SLIDING SCALE PRN PRN Reason: Mild Correctional Scale Last Admin: 01/09/19 21:13 Dose: 3 unit Ipratropium [place] (Atrovent) 2.5 ml NEB [id number] COUNT INCLUDES THE [facility] Last Admin: 01/11/19 14:07 Dose: 2.5 ml Loratadine (Claritin) 10 mg PO DAILY COUNT INCLUDES THE [facility] Last Admin: 01/11/19 08:22 Dose: 10 mg Losartan Potassium (Cozaar) 100 mg PO DAILY COUNT INCLUDES THE [facility] Last Admin: 01/11/19 08:22 Dose: 100 mg Metoprolol Tartrate (Lopressor) 50 mg PO BID COUNT INCLUDES THE [facility] Last Admin: 01/11/19 08:22 Dose: 50 mg Miscellaneous Medication (Pharmacy To Dose) 1 each IVPB PRN PRN PRN Reason: . Ondansetron HCl (Zofran) 4 mg IVP Q6H PRN PRN Reason: Nausea/Vomiting Last Admin: 01/09/19 20:10 Dose: 4 mg Polyethylene Glycol (Miralax) 17 gm PO DAILYPRN PRN PRN Reason: CONSTIPATION Last Admin: 01/08/19 22:51 Dose: 17 gm Potassium Chloride (K-Dur) 20 meq PO .3XWEEK [facility] Pregabalin (Lyrica) 50 mg PO HS COUNT INCLUDES THE [facility] Last Admin: 01/10/19 20:46 Dose: 50 mg Risperidone (Risperidone) 1 mg PO HS COUNT INCLUDES THE [facility] Last Admin: 01/10/19 20:46 Dose: 1 mg Sodium Chloride (Flush - Normal Saline) 10 ml IVF Q12HR [facility] Last Admin: 01/11/19 09:00 Dose: 10 ml Sodium Chloride (Flush - Normal Saline) 10 ml IVF PRN PRN PRN Reason: Saline Flush Last Admin: 01/11/19 04:18 Dose: 10 ml Spironolactone (Aldactone) 25 mg PO QAM[facility]
[2019-01-11] MEDS: HumaLOG 300 UNITS/3 ML VIAL SC PRN (17:28)
--- NOTE | 2019-01-11 19:08 | PRG ---
DATE OF SERVICE: 01/11/2019 SUBJECTIVE: Ms. Velasco denies any headaches. No shortness of breath or abdominal pain. OBJECTIVE: VITAL SIGNS: T-max is 99.2. She has an indwelling De Leon catheter. LUNGS: Clear. HEART: S1 and S2. Regular rate. ABDOMEN: Soft, not distended. EXTREMITIES: Moves extremities. LABORATORY DATA: White cell count 5.0, hemoglobin 9.0, platelets 134, 65% neutrophils, creatinine is at 0.88, albumin 2.6. Liver profile normal. Repeat urinalysis with 21 to 50 wbc's. Microbiology with Klebsiella pneumoniae. Broad susceptibility profile. Repeat CT abdomen and pelvis with contrast showed multiple lung masses and pancreatic mass which is enhancing and a round enhancement, superior pole, left kidney and enhancing mass in the left renal collecting system bulging of the proximal ureter and possible metastatic perirenal space lymph nodes. ASSESSMENT AND DISCUSSION: Chronic renal insufficiency stage 3, rheumatoid arthritis, systemic lupus erythematosus, previous encephalopathy which responded to high-dose corticosteroids with marked improvement and urinary tract infection with pyelonephritis, obstructive symptoms and imaging findings due to Klebsiella pneumoniae. The patient also has all those areas that are concerning for malignancy both in the left kidney as well as the pancreas and lungs. Course of action now would be to eventual transition to oral antimicrobial therapy. We will have a number of choices here could be anywhere from quinolone to Bactrim. The patient will need a tissue documentation of the malignancy. The lung approach does not appear to be viable according to radiologist. She may have to be referred to a tertiary center for pancreatic mass biopsy. She will eventually need a left kidney mass evaluated as well. Job ID: [id number]
[2019-01-11] MEDS: Atorvastatin Calcium 10 MG TAB PO SCH (21:06)
[2019-01-11] MEDS: risperiDONE 1 MG TAB PO SCH (21:06)
[2019-01-11] MEDS: Doxepin HCl 25 MG CAP PO SCH (21:08)
[2019-01-11] MEDS: Pregabalin 50 MG CAP PO SCH (21:09)
[2019-01-12] MEDS: Ipratropium Bromide 2.5 ml Neb NEB SCH ×6 (02:40→22:47)
[2019-01-12 05:53] LABS: Anion Gap 11 mmol/L (10-20); BUN (Urea Nitrogen) 10 mg/dL (9.8-20.1); Calc. Creatinine Clearance 103 mL/min (70-130); Calcium 8.4 mg/dL (7.8-10.44); Carbon Dioxide 28 mmol/L (23-31); Chloride 102 mmol/L (98-107); Estimated GFR-MDRD 67; Glucose 131 mg/dL (83-110); Potassium 3.8 mmol/L (3.5-5.1); Sodium 137 mmol/L (136-145)
[2019-01-12] MEDS ORDERED: Furosemide 40 MG/4 ML VIAL SLOW IVP SCH (08:00)
[2019-01-12] MEDS ORDERED: Potassium Chloride 20 MEQ TAB PO SCH (08:15)
--- NOTE | 2019-01-12 08:34 | PRG ---
DATE OF SERVICE: 01/12/2019 SUBJECTIVE: The patient is alert and awake, denies chest pain, shortness of breath. OBJECTIVE: VITAL SIGNS: Stable. Afebrile. I's and O's 1790 in and 2200 out. Urine output. Kristine yellow. ABDOMEN: Morbidly obese. No rigidity. No rebound. De Leon catheter adequately secured. LABORATORY DATA: CBC yesterday is within normal limits, white count 5, hemoglobin 9.0, platelet 134. INR is 1.3, PTT of 35. Renal function is stable with creatinine of 0.8. CEA 4.6, normal. CA 19-9 of 15, normal. Blood culture 2/2 sets positive for Klebsiella pneumoniae. Urine culture obtained after appropriate antibiotic therapy demonstrates mixed skin alan, negative. FISH cytology from urethral De Leon catheter pending, repeat blood culture pending, bone scan ordered for this morning. CT of the chest, abdomen and pelvis with contrast obtained yesterday, which I have reviewed myself demonstrating multiple pulmonary mets, as previous, pancreatic head mass measuring 2.2 cm, suspicious for malignancy. Newly appreciated left endophytic renal mass enhancing with contrast in comparison to noncontrast CT scan performed few days ago, measuring 3.6 cm. This is completely endophytic. Previous hyperdensity of the renal pelvis and ureter is enhancing with contrast study. Stent in good position. IMPRESSION AND PLAN: 1. Ms. Velasco is a 73-year-old female with multiple medical comorbidities with history of coronary artery disease, status post stent, last Plavix 12/31/18 2. History of diabetes. 3. History of morbid obesity. 4. Current admission with history of fever, Klebsiella urosepsis. 5. History of rheumatoid arthritis, on multiple immunosuppressive therapy, on hold. 6. Multiple pulmonary mets. Primary source of metastatic disease yet to be determined. 7. Urologic issues of left renal pelvic, proximal ureteral hyperdensity of unclear etiology, previously presumed to be due to possible infected stone. However, as previous, I cannot completely exclude malignant process. The morphology on CT scan is somewhat atypical of transitional cell of the upper tract. However, this warrants ureteroscopy, pyeloscopy, biopsy if indicated. 8. Newly appreciated left endophytic renal mass. She presents with complex picture as above. I did inform the patient at bedside, who appears to be unaware of her diagnosis. I called the daughter, inform her regarding results of CT, indications for bone scan. CT guided lung nodule biopsy is scheduled for today; however, I do have concerns as it may be difficult to approach given size, location, and body habitus. Left renal biopsy may be somewhat cumbersome as well, due to her body habitus, moreover, unable to appreciate on noncontrast CT. will discuss with radiologist regarding possible percutaneous biopsies sometime next week, as she has been on Plavix. I do not recommend biopsy to be performed over the weekend. If the patient is medically stable and optimized, pyeloscopy/ureteroscopy 01/17 for tissue diagnosis evaluation of left renal pelvic mass vs stone. Please keep the patient off her immunosuppressants. If her repeat blood culture is negative, will proceed with pyeloscopy next week. Continue antibiotics per Infectious Disease. Patient's daughter was updated via telephone call Job ID: [id number] [facility]
--- NOTE | 2019-01-12 09:05 | PRG ---
DATE OF SERVICE: 01/12/2019 SUBJECTIVE: Ms. Velasco is breathing better today. She feels better. She still require some breathing treatments, but overall improved. She had good urine output after the Lasix. She is not having chest pain. OBJECTIVE: VITAL SIGNS: The blood pressure is 126/69, pulse is 70s. LUNGS: Clear. CARDIAC: Normal S1 and S2. ABDOMEN: Soft and nontender. EXTREMITIES: There is mild edema. ASSESSMENT: Diastolic heart failure, still mildly volume overloaded, but improved. PLAN: 1. Furosemide 40 mg today, then 20 mg IV daily. 2. Stop oral furosemide. 3. Replete potassium. She is hypokalemic, mildly, were in the low range of normal at 3.8. Try to keep her over 4. 4. Dr. Weiss will see this weekend and Dr. Stanley will return on Tuesday. Job ID: [id number]
[2019-01-12] MEDS: Folic Acid 1 MG TAB PO SCH (09:24)
[2019-01-12] MEDS: Alogliptin 25 MG TAB PO SCH (09:24)
[2019-01-12] MEDS: Loratadine 10 MG TAB PO SCH (09:24)
[2019-01-12] MEDS: Cyanocobalamin (Vitamin B-12) 1,000 MCG TAB PO SCH (09:24)
[2019-01-12] MEDS: Spironolactone 25 MG TAB PO SCH (09:24)
[2019-01-12] MEDS: Metoprolol Tartrate 50 MG TAB PO SCH ×2 (09:24→20:43)
[2019-01-12] MEDS: Losartan 25 MG TAB PO SCH (09:24)
[2019-01-12] MEDS: Aspirin 81 mg Enteric Coated Tablet PO SCH (09:25)
[2019-01-12] MEDS: guaiFENesin ER 600 MG TAB PO SCH ×2 (09:25→20:43)
[2019-01-12] MEDS: Bupropion 150 MG SR TAB PO SCH (09:25)
[2019-01-12] MEDS: Escitalopram Oxalate 20 mg Tablet PO SCH (09:27)
[2019-01-12] MEDS: Insulin Glargine 10 UNITS in Pre-Filled Syringe 1 EACH SC SCH (09:35)
[2019-01-12] MEDS: ALPRAZolam 0.25 MG TAB PO PRN (11:14)
[2019-01-12] MEDS: cefTRIAXone\\ROCEPHIN 2 GM in Sodium Chloride 0.9% 100 ML IVPB SCH (12:53)
[2019-01-12] MEDS: HumaLOG 300 UNITS/3 ML VIAL SC PRN (12:55)
--- NOTE | 2019-01-12 13:06 | NM ---
NUCLEAR MEDICINE BONE SCAN: HISTORY: Pancreatic mass with lung metastases. FINDINGS: Examination was performed using 29.3 mCi 99m Technetium MDP administered intravenously. Whole body i maging shows a normal distribution of the radiopharmaceutical without signs of metastatic disease. I ncreased uptake in the knees is most compatible with arthritic change. Bilateral renal and faintly v isualized bladder activity is seen. IMPRESSION: Unremarkable bone scan. No evidence of metastatic disease. POS: [facility]
--- NOTE | 2019-01-12 15:16 | CON ---
DATE OF CONSULTATION: REASON FOR CONSULTATION: Pancreatic and renal mass. HISTORY OF PRESENT ILLNESS: Ms. Velasco is a pleasant 73-year-old female, who was admitted for fever and altered mental status. She had left hydroureter and hydronephrosis and a positive blood culture. She had a stent placed and is started on IV antibiotics. During the workup, she had an abdominal and pelvic CT without contrast. There was a hypodensity in the proximal body of the pancreas, measuring 2.9 x 1.7 cm. She also had a subcentimeter nodules in the right lower lobe that were consistent with metastatic disease. Dr. Weldon saw the patient, he ordered a CT scan with contrast, it again showed the subcentimeter pulmonary nodules and a small pancreatic mass. There was an abnormal enhancement in the superior pole of the left kidney, measuring 3.6 cm, which was felt to be a mass. The patient has improved over the course of her hospital stay; however, I have been unable to obtain any tissues secondary to the location of the concerning masses and body habitus. We were asked to see the patient to assist with diagnosis. PAST MEDICAL HISTORY: 1. Lupus erythematous. 2. Rheumatoid arthritis. 3. Lupus cerebritis. 4. Type 2 diabetes. 5. Hypertension. 6. Morbid obesity. PAST SURGICAL HISTORY: PEG tube placement. ALLERGIES: NO KNOWN DRUG ALLERGIES. CURRENT MEDICATIONS: 1. Tylenol p.r.n. 2. Alogliptin daily. 3. Xanax p.r.n. 4. Ecotrin daily. 5. Lipitor daily. 6. Wellbutrin daily. 7. Ceftriaxone daily. 8. Catapres p.r.n. 9. B12 daily. 10. Doxepin daily. 11. Lexapro daily. 12. Folic acid daily. 13. Lasix daily. 14. Mucinex b.i.d. 15. Insulin daily. 16. Cozaar daily. 17. Lopressor b.i.d. 18. Potassium chloride daily. 19. Lyrica daily. 20. Risperidone daily. 21. Aldactone daily. FAMILY HISTORY: Unremarkable. SOCIAL HISTORY: . Lives in an assisted living facility. Daughter is present in room. REVIEW OF SYSTEMS: Negative except for noted in HPI. PHYSICAL EXAMINATION: VITAL SIGNS: Temperature is 97.6, pulse is 75, respiratory rate 21, BP is 147/59,and she is 92% on room air. GENERAL: Well-developed, well-nourished female, in no acute distress. HEENT: Normocephalic and atraumatic. Pupils equal and reactive to light. NECK: Supple. CV: Regular rate and rhythm. LUNGS: Clear. ABDOMEN: Obese, nontender. Bowel sounds are positive. EXTREMITIES: No clubbing, cyanosis, or edema. SKIN: No rash. HEMATOLOGIC: No petechiae or purpura. NEUROLOGIC: Nonfocal. PSYCHIATRIC: The patient is alert and oriented. PERTINENT LABORATORY DATA AND X-RAYS: Current WBCs 5.0, hemoglobin 9.0, hematocrit 27.6, and platelet count 134,000, 65% neutrophils, and 15% lymphocytes. Sodium is 137, potassium 3.8, chloride 102, CO2 is 28, BUN is 10, creatinine 0.84, and calcium is 8.4. Bilirubin is 0.5, AST is 9, ALT is less than 7, alkaline phosphatase is 68, serum total protein is 5.7, albumin 2.6, and globulin 3.1. CEA is 4.66. CA-19- 9 is 15. Radiology per HPI. ASSESSMENT: 1. Pancreatic mass. 2. Subcentimeter lung nodules. 3. Left renal mass. DISCUSSION: The patient needs a biopsy for further evaluation of the pancreatic and ureteral mass. Dr. Garcia has a procedure planned for next week with possible biopsy. Agree with Dr. Weldon that she needs an EUS for biopsy of her pancreatic mass. The procedure is not done at this facility and could be done in the outpatient setting. We will be happy to follow up on the biopsy results. Thank you for the consult. Job ID: [id number] MTDD
[2019-01-12] MEDS: Doxepin HCl 25 MG CAP PO SCH (20:42)
[2019-01-12] MEDS: risperiDONE 1 MG TAB PO SCH (20:43)
[2019-01-12] MEDS: Nystatin 100 MU/ML ML SSW SCH (20:43)
[2019-01-12] MEDS: Atorvastatin Calcium 10 MG TAB PO SCH (20:43)
[2019-01-12] MEDS: Pregabalin 50 MG CAP PO SCH (20:43)
[2019-01-12] MEDS: Nystatin Powder 15 GM BOT TOP PRN (20:44)
--- NOTE | 2019-01-12 20:57 | PDOC.PN ---
- Subjective Encounter Start Date: 01/12/19 Encounter Start Time: 13:45 Subjective: pt up in bed no complains of pain. Daughter updated earlier when pt went to -: bone scan - Objective Resuscitation Status - Order Detail: 01/07/19 22:05 Resuscitation Status Routine Resuscitation Status: FULL: Full Resuscitation Discussed with: patient Vital Signs & Weight: Vital Signs (12 hours) Pulse Pulse Pulse Resp BP BP BP 01/12/19 19:19 85 24 H 01/12/19 15:32 97 21 H 01/12/19 12:38 75 21 H 147/59 H 01/12/19 10:40 74 24 H 01/12/19 10:15 84 91 138/58 L 138/68 Pulse Ox Pulse Ox Pulse Ox 01/12/19 19:19 92 L 01/12/19 15:32 95 01/12/19 12:38 92 L 01/12/19 10:40 92 L 01/12/19 10:15 92 L 98 Weight Admit Weight 238 lb 9.6 oz Weight 238 lb 9.6 oz Most Recent Monitor Data Heart Rate from ECG 85 NIBP 149/65 NIBP BP-Mean 93 Respiration from ECG 24 SpO2 92 I&O: 01/11/19 01/12/19 01/13/19 06:59 06:59 06:59 Intake Total 840 1790 720 Output Total 1950 2200 2900 Balance -1116 -711 -8355 Result Diagrams: 01/11/19 03:10 01/12/19 04:53 Additional Labs: Accuchecks 01/12/19 01/12/19 01/12/19 16:18 10:10 06:04 POC Glucose 135 H 158 H 145 H 01/11/19 21:03 POC Glucose 183 H Phys Exam - Physical Examination Neck: no nodes, no JVD, supple, full ROM Respiratory: no wheezing, no rales, no rhonchi, wheezing present, clear to auscultation bilateral Cardiovascular: RRR, no significant murmur, no rub, gallop, irregular Gastrointestinal: soft, non-tender, no distention, positive bowel sounds Musculoskeletal: no edema, pulses present, edema present Dx/Plan (1) Complicated UTI (urinary tract infection) Code(s): N39.0 - URINARY TRACT INFECTION, SITE NOT SPECIFIED Status: Acute (2) Bacteremia Code(s): R78.81 - BACTEREMIA Status: Acute (3) SLE (systemic lupus erythematosus) Code(s): M32.9 - SYSTEMIC LUPUS ERYTHEMATOSUS, UNSPECIFIED Status: Chronic (4) Bacteremia Code(s): R78.81 - BACTEREMIA Status: Acute (5) Pancreatic mass Status: Acute - Plan bone scan negative -: will continue abx for now -: pt will need EUS ?outpatient -: blood sugar controlled, pt on lasix will check labs in am * . Review of Systems - Review of Systems Respiratory: negative: Cough, Dry, Shortness of Breath, Hemoptysis, SOB with Excertion, Pleuritic Pain, Sputum, Wheezing Cardiovascular: negative: chest pain, palpitations, orthopnea, paroxysmal nocturnal dyspnea, edema, light headedness, other Gastrointestinal: negative: Nausea, Vomiting, Abdominal Pain, Diarrhea, Constipation, Melena, Hematochezia, Other - Medications/Allergies Allergies/Adverse Reactions: Allergies Allergy/AdvReac Type Severity Reaction Status Date / Time No Known Drug Allergies Allergy Verified 01/08/19 00:39 Medications: Current Medications Acetaminophen (Tylenol) 650 mg PO Q4H PRN PRN Reason: Fever/Mild Pain Alogliptin Benzoate (Alogliptin) 25 mg PO DAILY [facility] Last Admin: 01/12/19 09:24 Dose: 25 mg Alprazolam (Xanax) 0.25 mg PO BID PRN PRN Reason: Anxiety Last Admin: 01/12/19 11:14 Dose: 0.25 mg Aspirin (Ecotrin) 81 mg PO DAILY [facility] Last Admin: 01/12/19 09:25 Dose: 81 mg Atorvastatin Calcium (Lipitor) 10 mg PO HS [facility] Last Admin: 01/12/19 20:43 Dose: 10 mg Bupropion HCl (Wellbutrin Sr) 300 mg PO DAILY [facility] Last Admin: 01/12/19 09:25 Dose: 300 mg Clonidine (Catapres) 0.1 mg PO BID PRN PRN Reason: BLOOD PRESSURE Cyanocobalamin (Vitamin B-12) 1,000 mcg PO DAILY [facility] Last Admin: 01/12/19 09:24 Dose: 1,000 mcg Dextrose/Water (Dextrose 50%) 25 gm SLOW IVP PRN PRN PRN Reason: Hypoglycemia Doxepin HCl (Sinequan) 50 mg PO [facility] Last Admin: 01/12/19 20:42 Dose: 50 mg Escitalopram Oxalate (Lexapro) 20 mg PO DAILY [facility] Last Admin: 01/12/19 09:27 Dose: 20 mg Famotidine (Pepcid) 20 mg PO BID PRN PRN Reason: Indigestion Folic Acid (Folvite) 1 mg PO DAILY [facility] Last Admin: 01/12/19 09:24 Dose: 1 mg Furosemide (Lasix) 20 mg SLOW IVP DAILY [facility] Glucagon (Glucagon) 1 mg IM PRN PRN PRN Reason: Hypoglycemia Guaifenesin (Mucinex) 600 mg PO Q12HR [facility] Last Admin: 01/12/19 20:43 Dose: 600 mg Dextrose/Water (D5w) 1,000 mls @ 0 mls/hr IV .Q0M PRN PRN Reason: Hypoglycemia Insulin Glargine 10 units/ (Miscellaneous Medication) 0.1 mls @ 0 mls/hr SC QAM [facility] Last Admin: 01/12/19 09:35 Dose: 0.1 mls Ceftriaxone Sodium 2 gm/ (Sodium Chloride) 100 mls @ 200 mls/hr IVPB Q24HR [facility] Last Admin: 01/12/19 12:53 Dose: 100 mls Insulin Human Lispro (Humalog) 0 units SC .MILD SLIDING SCALE PRN PRN Reason: Mild Correctional Scale Last Admin: 01/12/19 12:55 Dose: 2 unit Ipratropium [place] (Atrovent) 2.5 ml NEB [id number] [facility] Last Admin: 01/12/19 19:19 Dose: 2.5 ml Loratadine (Claritin) 10 mg PO DAILY [facility] Last Admin: 01/12/19 09:24 Dose: 10 mg Losartan Potassium (Cozaar) 100 mg PO DAILY [facility] Last Admin: 01/12/19 09:24 Dose: 100 mg Metoprolol Tartrate (Lopressor) 50 mg PO BID [facility] Last Admin: 01/12/19 20:43 Dose: 50 mg Miscellaneous Medication (Pharmacy To Dose) 1 each IVPB PRN PRN PRN Reason: . Nystatin (Mycostatin Powder) 0 gm TOP TIDPRN PRN PRN Reason: . Last Admin: 01/12/19 20:44 Dose: 1 applic Nystatin (Mycostatin Susp) 500,000 unit SSW TID [facility] Last Admin: 01/12/19 20:43 Dose: 5 ml Ondansetron HCl (Zofran) 4 mg IVP Q6H PRN PRN Reason: Nausea/Vomiting Last Admin: 01/09/19 20:10 Dose: 4 mg Polyethylene Glycol (Miralax) 17 gm PO DAILYPRN PRN PRN Reason: CONSTIPATION Last Admin: 01/08/19 22:51 Dose: 17 gm Potassium Chloride (K-Dur) 20 meq PO QAM-WM [facility] Pregabalin (Lyrica) 50 mg PO HS [facility] Last Admin: 01/12/19 20:43 Dose: 50 mg Risperidone (Risperidone) 1 mg PO HS [facility] Last Admin: 01/12/19 20:43 Dose: 1 mg Sodium Chloride (Flush - Normal Saline) 10 ml IVF Q12HR [facility] Last Admin: 01/12/19 20:44 Dose: 10 ml Sodium Chloride (Flush - Normal Saline) 10 ml IVF PRN PRN PRN Reason: Saline Flush Last Admin: 01/12/19 12:53 Dose: 10 ml Spironolactone (Aldactone) 25 mg PO QAM-WM [facility] Last Admin: 01/12/19 09:24 Dose: 25 mg
[2019-01-13] MEDS: Ipratropium Bromide 2.5 ml Neb NEB SCH ×6 (02:25→23:07)
[2019-01-13 03:47] LABS: Vancomycin, Trough 6.6 ug/mL
[2019-01-13 03:58] LABS: Anion Gap 13 mmol/L (10-20); BUN (Urea Nitrogen) 15 mg/dL (9.8-20.1); Calc. Creatinine Clearance 97 mL/min (70-130); Calcium 8.5 mg/dL (7.8-10.44); Carbon Dioxide 28 mmol/L (23-31); Chloride 100 mmol/L (98-107); Estimated GFR-MDRD 62; Glucose 140 mg/dL (83-110); Magnesium 1.7 mg/dL (1.6-2.6); Potassium 3.9 mmol/L (3.5-5.1); Sodium 137 mmol/L (136-145)
[2019-01-13 04:30] LABS: Band 6 % (5-11); Eosinophils 4 % (0-10); Hemoglobin 9.5 g/dL (12.0-16.0); Lymphocytes 20 % (21-51); MDiff Complete? YES; Mean Corpuscular HGB CONC 33.1 g/dL (32.0-36.0); Mean Corpuscular Hemoglobin 32.5 pg (27.0-31.0); Mean Corpuscular Volume 98.2 fL (78.0-98.0); Mean Platelet Volume 8.3 fL (7.4-10.4); Monocytes 14 % (0-10); Neutrophil 52 % (42-75); Platelet Count 180 thou/uL (130-400); Platelet Morphology Comment Appears Adequate; RBC Distribution Width 16.7 % (11.5-14.5); Reactive Lymphocytes 3 % (0-10); Red Blood Cell (RBC) Count 2.93 mill/uL (4.20-5.40); White Blood Cell (WBC) Count 4.8 thou/uL (4.8-10.8)
[2019-01-13] MEDS: guaiFENesin ER 600 MG TAB PO SCH ×2 (08:53→20:18)
[2019-01-13] MEDS: Losartan 25 MG TAB PO SCH (08:53)
[2019-01-13] MEDS: Alogliptin 25 MG TAB PO SCH (08:53)
[2019-01-13] MEDS: Escitalopram Oxalate 20 mg Tablet PO SCH (08:53)
[2019-01-13] MEDS: Cyanocobalamin (Vitamin B-12) 1,000 MCG TAB PO SCH (08:53)
[2019-01-13] MEDS: Spironolactone 25 MG TAB PO SCH (08:53)
[2019-01-13] MEDS: Nystatin Powder 15 GM BOT TOP PRN ×2 (08:53→20:19)
[2019-01-13] MEDS: Bupropion 150 MG SR TAB PO SCH (08:54)
[2019-01-13] MEDS: Loratadine 10 MG TAB PO SCH (08:54)
[2019-01-13] MEDS: Metoprolol Tartrate 50 MG TAB PO SCH ×2 (08:54→20:18)
[2019-01-13] MEDS: Folic Acid 1 MG TAB PO SCH (08:54)
[2019-01-13] MEDS: Furosemide 20 MG/2 ML VIAL SLOW IVP SCH (08:54)
[2019-01-13] MEDS: Aspirin 81 mg Enteric Coated Tablet PO SCH (08:54)
[2019-01-13] MEDS: Potassium Chloride 20 MEQ TAB PO SCH (08:54)
[2019-01-13] MEDS: Insulin Glargine 10 UNITS in Pre-Filled Syringe 1 EACH SC SCH (08:55)
[2019-01-13] MEDS: Nystatin 100 MU/ML ML SSW SCH ×3 (09:09→20:18)
[2019-01-13] MEDS: cefTRIAXone\\ROCEPHIN 2 GM in Sodium Chloride 0.9% 100 ML IVPB SCH (13:09)
--- NOTE | 2019-01-13 15:24 | PDOC.PN ---
- Subjective Encounter Start Date: 01/13/19 Encounter Start Time: 12:00 Subjective: pt up in bed denies any pain or sob - Objective Resuscitation Status - Order Detail: 01/07/19 22:05 Resuscitation Status Routine Resuscitation Status: FULL: Full Resuscitation Discussed with: patient Vital Signs & Weight: Vital Signs (12 hours) Temp Pulse Resp Pulse Ox 01/13/19 14:45 78 16 90 L 01/13/19 11:29 97.7 F 01/13/19 10:15 75 26 H 100 01/13/19 07:20 98.4 F 01/13/19 06:24 74 23 H 98 01/13/19 04:00 99.4 F Weight Admit Weight 238 lb 9.6 oz Weight 236 lb 5 oz Most Recent Monitor Data Heart Rate from ECG 82 NIBP 115/64 NIBP BP-Mean 81 Respiration from ECG 18 SpO2 96 I&O: 01/12/19 01/13/19 01/14/19 06:59 06:59 06:59 Intake Total 1790 1230 Output Total 2200 3425 Balance -410 -2195 Result Diagrams: 01/13/19 03:22 01/13/19 03:22 Additional Labs: Accuchecks 01/13/19 01/13/19 01/12/19 10:33 05:51 20:42 POC Glucose 190 H 147 H 173 H 01/12/19 16:18 POC Glucose 135 H Phys Exam - Physical Examination Neck: no nodes, no JVD, supple, full ROM Respiratory: wheezing present Cardiovascular: RRR, no significant murmur, no rub, gallop, irregular Gastrointestinal: soft, non-tender, no distention, positive bowel sounds Musculoskeletal: no edema, pulses present, edema present Dx/Plan (1) Complicated UTI (urinary tract infection) Code(s): N39.0 - URINARY TRACT INFECTION, SITE NOT SPECIFIED Status: Acute (2) Bacteremia Code(s): R78.81 - BACTEREMIA Status: Acute (3) SLE (systemic lupus erythematosus) Code(s): M32.9 - SYSTEMIC LUPUS ERYTHEMATOSUS, UNSPECIFIED Status: Chronic (4) Bacteremia Code(s): R78.81 - BACTEREMIA Status: Acute (5) Pancreatic mass Status: Acute - Plan bone scan negative -: continue abx for now -: possible outpatient pancreatic mass biopsy * . Review of Systems - Review of Systems Cardiovascular: negative: chest pain, palpitations, orthopnea, paroxysmal nocturnal dyspnea, edema, light headedness, other Gastrointestinal: negative: Nausea, Vomiting, Abdominal Pain, Diarrhea, Constipation, Melena, Hematochezia, Other Genitourinary: negative: Dysuria, Frequency, Incontinence, Hematuria, Retention , Other - Medications/Allergies Allergies/Adverse Reactions: Allergies Allergy/AdvReac Type Severity Reaction Status Date / Time No Known Drug Allergies Allergy Verified 01/08/19 00:39 Medications: Current Medications Acetaminophen (Tylenol) 650 mg PO Q4H PRN PRN Reason: Fever/Mild Pain Alogliptin Benzoate (Alogliptin) 25 mg PO DAILY [facility] Last Admin: 01/13/19 08:53 Dose: 25 mg Alprazolam (Xanax) 0.25 mg PO BID PRN PRN Reason: Anxiety Last Admin: 01/12/19 11:14 Dose: 0.25 mg Aspirin (Ecotrin) 81 mg PO DAILY [facility] Last Admin: 01/13/19 08:54 Dose: 81 mg Atorvastatin Calcium (Lipitor) 10 mg PO [facility] Last Admin: 01/12/19 20:43 Dose: 10 mg Bupropion HCl (Wellbutrin Sr) 300 mg PO DAILY [facility] Last Admin: 01/13/19 08:54 Dose: 300 mg Clonidine (Catapres) 0.1 mg PO BID PRN PRN Reason: BLOOD PRESSURE Cyanocobalamin (Vitamin B-12) 1,000 mcg PO DAILY [facility] Last Admin: 01/13/19 08:53 Dose: 1,000 mcg Dextrose/Water (Dextrose 50%) 25 gm SLOW IVP PRN PRN PRN Reason: Hypoglycemia Doxepin HCl (Sinequan) 50 mg PO HS [facility] Last Admin: 01/12/19 20:42 Dose: 50 mg Escitalopram Oxalate (Lexapro) 20 mg PO DAILY [facility] Last Admin: 01/13/19 08:53 Dose: 20 mg Famotidine (Pepcid) 20 mg PO BID PRN PRN Reason: Indigestion Folic Acid (Folvite) 1 mg PO DAILY [facility] Last Admin: 01/13/19 08:54 Dose: 1 mg Furosemide (Lasix) 20 mg SLOW IVP DAILY [facility] Last Admin: 01/13/19 08:54 Dose: 20 mg Glucagon (Glucagon) 1 mg IM PRN PRN PRN Reason: Hypoglycemia Guaifenesin (Mucinex) 600 mg PO Q12HR [facility] Last Admin: 01/13/19 08:53 Dose: 600 mg Dextrose/Water (D5w) 1,000 mls @ 0 mls/hr IV .Q0M PRN PRN Reason: Hypoglycemia Insulin Glargine 10 units/ (Miscellaneous Medication) 0.1 mls @ 0 mls/hr SC QAM [facility] Last Admin: 01/13/19 08:55 Dose: 0.1 mls Ceftriaxone Sodium 2 gm/ (Sodium Chloride) 100 mls @ 200 mls/hr IVPB Q24HR [facility] Last Admin: 01/13/19 13:09 Dose: 100 mls Insulin Human Lispro (Humalog) 0 units SC .MILD SLIDING SCALE PRN PRN Reason: Mild Correctional Scale Last Admin: 01/12/19 12:55 Dose: 2 unit Ipratropium [place] (Atrovent) 2.5 ml NEB [id number] [facility] Last Admin: 01/13/19 14:45 Dose: 2.5 ml Loratadine (Claritin) 10 mg PO DAILY [facility] Last Admin: 01/13/19 08:54 Dose: 10 mg Losartan Potassium (Cozaar) 100 mg PO DAILY [facility] Last Admin: 01/13/19 08:53 Dose: 100 mg Metoprolol Tartrate (Lopressor) 50 mg PO BID [facility] Last Admin: 01/13/19 08:54 Dose: 50 mg Nystatin (Mycostatin Powder) 0 gm TOP TIDPRN PRN PRN Reason: . Last Admin: 01/13/19 08:53 Dose: 1 applic Nystatin (Mycostatin Susp) 500,000 unit SSW TID [facility] Last Admin: 01/13/19 13:11 Dose: 5 ml Ondansetron HCl (Zofran) 4 mg IVP Q6H PRN PRN Reason: Nausea/Vomiting Last Admin: 01/09/19 20:10 Dose: 4 mg Polyethylene Glycol (Miralax) 17 gm PO DAILYPRN PRN PRN Reason: CONSTIPATION Last Admin: 01/08/19 22:51 Dose: 17 gm Potassium Chloride (K-Dur) 20 meq PO QAM-WM [facility] Last Admin: 01/13/19 08:54 Dose: 20 meq Pregabalin (Lyrica) 50 mg PO HS [facility] Last Admin: 01/12/19 20:43 Dose: 50 mg Risperidone (Risperidone) 1 mg PO HS [facility] Last Admin: 01/12/19 20:43 Dose: 1 mg Sodium Chloride (Flush - Normal Saline) 10 ml IVF Q12HR [facility] Last Admin: 01/13/19 08:55 Dose: 10 ml Sodium Chloride (Flush - Normal Saline) 10 ml IVF PRN PRN PRN Reason: Saline Flush Last Admin: 01/12/19 12:53 Dose: 10 ml Spironolactone (Aldactone) 25 mg PO QAM-WM [facility] Last Admin: 01/13/19 08:53 Dose: 25 mg
[2019-01-13] MEDS: Doxepin HCl 25 MG CAP PO SCH (20:18)
[2019-01-13] MEDS: risperiDONE 1 MG TAB PO SCH (20:18)
[2019-01-13] MEDS: Atorvastatin Calcium 10 MG TAB PO SCH (20:18)
[2019-01-13] MEDS: Pregabalin 50 MG CAP PO SCH (20:19)
[2019-01-13] MEDS: Melatonin 3 MG TAB PO PRN (22:34)
[2019-01-14] MEDS: Ipratropium Bromide 2.5 ml Neb NEB SCH ×6 (02:30→22:26)
[2019-01-14] MEDS: Nystatin 100 MU/ML ML SSW SCH ×3 (08:42→20:55)
[2019-01-14] MEDS: Folic Acid 1 MG TAB PO SCH (08:42)
[2019-01-14] MEDS: Nystatin Powder 15 GM BOT TOP PRN (08:42)
[2019-01-14] MEDS: Losartan 25 MG TAB PO SCH (08:42)
[2019-01-14] MEDS: Aspirin 81 mg Enteric Coated Tablet PO SCH (08:43)
[2019-01-14] MEDS: Metoprolol Tartrate 50 MG TAB PO SCH ×2 (08:43→20:21)
[2019-01-14] MEDS: Cyanocobalamin (Vitamin B-12) 1,000 MCG TAB PO SCH (08:43)
[2019-01-14] MEDS: Alogliptin 25 MG TAB PO SCH (08:43)
[2019-01-14] MEDS: Furosemide 20 MG/2 ML VIAL SLOW IVP SCH (08:43)
[2019-01-14] MEDS: Loratadine 10 MG TAB PO SCH (08:43)
[2019-01-14] MEDS: guaiFENesin ER 600 MG TAB PO SCH ×2 (08:43→20:21)
[2019-01-14] MEDS: Escitalopram Oxalate 20 mg Tablet PO SCH (08:43)
[2019-01-14] MEDS: Spironolactone 25 MG TAB PO SCH (08:43)
[2019-01-14] MEDS: Potassium Chloride 20 MEQ TAB PO SCH (08:43)
[2019-01-14] MEDS: Insulin Glargine 10 UNITS in Pre-Filled Syringe 1 EACH SC SCH (08:43)
[2019-01-14] MEDS: Bupropion 150 MG SR TAB PO SCH (08:44)
[2019-01-14] MEDS: cefTRIAXone\\ROCEPHIN 2 GM in Sodium Chloride 0.9% 100 ML IVPB SCH (15:50)
--- NOTE | 2019-01-14 16:00 | PDOC.PN ---
- Subjective Encounter Start Date: 01/14/19 Encounter Start Time: 10:00 Subjective: pt up in bed no complains - Objective Resuscitation Status - Order Detail: 01/07/19 22:05 Resuscitation Status Routine Resuscitation Status: FULL: Full Resuscitation Discussed with: patient Vital Signs & Weight: Vital Signs (12 hours) Temp Pulse Pulse Resp BP Pulse Ox Pulse Ox 01/14/19 15:38 67 18 94 L 01/14/19 15:12 98.5 F 01/14/19 13:09 68 139/75 95 01/14/19 11:39 97.8 F 01/14/19 11:12 68 15 96 01/14/19 08:45 72 24 H 01/14/19 08:05 98.1 F Weight Admit Weight 238 lb 9.6 oz Weight 237 lb 2 oz Most Recent Monitor Data Heart Rate from ECG 66 NIBP 162/76 NIBP BP-Mean 104 Respiration from ECG 21 SpO2 95 I&O: 01/13/19 01/14/19 01/15/19 06:59 06:59 06:59 Intake Total 1230 1500 Output Total 3425 1650 Balance -2195 -150 Result Diagrams: 01/13/19 03:22 01/13/19 03:22 Additional Labs: Accuchecks 01/14/19 01/14/19 01/13/19 10:51 05:43 20:28 POC Glucose 215 H 186 H 156 H 01/13/19 16:41 POC Glucose 176 H Phys Exam - Physical Examination Respiratory: no wheezing, no rales, no rhonchi, wheezing present, clear to auscultation bilateral Cardiovascular: RRR, no significant murmur, no rub, gallop, irregular Gastrointestinal: soft, non-tender, no distention, positive bowel sounds Musculoskeletal: no edema, pulses present, edema present Dx/Plan (1) Complicated UTI (urinary tract infection) Code(s): N39.0 - URINARY TRACT INFECTION, SITE NOT SPECIFIED Status: Acute (2) Bacteremia Code(s): R78.81 - BACTEREMIA Status: Acute (3) SLE (systemic lupus erythematosus) Code(s): M32.9 - SYSTEMIC LUPUS ERYTHEMATOSUS, UNSPECIFIED Status: Chronic (4) Bacteremia Code(s): R78.81 - BACTEREMIA Status: Acute (5) Pancreatic mass Status: Acute - Plan spoke with gi given her normal lfts and normal ca19-9 possible renal ca -: and pancreatic ca less likely. IR unable to do lung biopsy. -: continue abx. pt to undergo cyto again on tue by urology. -: urology has been updated. called daughter and left voicemail. * . Review of Systems - Review of Systems Respiratory: negative: Cough, Dry, Shortness of Breath, Hemoptysis, SOB with Excertion, Pleuritic Pain, Sputum, Wheezing Cardiovascular: negative: chest pain, palpitations, orthopnea, paroxysmal nocturnal dyspnea, edema, light headedness, other Gastrointestinal: negative: Nausea, Vomiting, Abdominal Pain, Diarrhea, Constipation, Melena, Hematochezia, Other - Medications/Allergies Allergies/Adverse Reactions: Allergies Allergy/AdvReac Type Severity Reaction Status Date / Time No Known Drug Allergies Allergy Verified 01/08/19 00:39 Medications: Current Medications Acetaminophen (Tylenol) 650 mg PO Q4H PRN PRN Reason: Fever/Mild Pain Alogliptin Benzoate (Alogliptin) 25 mg PO DAILY [facility] Last Admin: 01/14/19 08:43 Dose: 25 mg Alprazolam (Xanax) 0.25 mg PO BID PRN PRN Reason: Anxiety Last Admin: 01/12/19 11:14 Dose: 0.25 mg Aspirin (Ecotrin) 81 mg PO DAILY [facility] Last Admin: 01/14/19 08:43 Dose: 81 mg Atorvastatin Calcium (Lipitor) 10 mg PO HS [facility] Last Admin: 01/13/19 20:18 Dose: 10 mg Bupropion HCl (Wellbutrin Sr) 300 mg PO DAILY [facility] Last Admin: 01/14/19 08:44 Dose: 300 mg Clonidine (Catapres) 0.1 mg PO BID PRN PRN Reason: BLOOD PRESSURE Cyanocobalamin (Vitamin B-12) 1,000 mcg PO DAILY [facility] Last Admin: 01/14/19 08:43 Dose: 1,000 mcg Dextrose/Water (Dextrose 50%) 25 gm SLOW IVP PRN PRN PRN Reason: Hypoglycemia Doxepin HCl (Sinequan) 50 mg PO HS [facility] Last Admin: 01/13/19 20:18 Dose: 50 mg Escitalopram Oxalate (Lexapro) 20 mg PO DAILY [facility] Last Admin: 01/14/19 08:43 Dose: 20 mg Famotidine (Pepcid) 20 mg PO BID PRN PRN Reason: Indigestion Folic Acid (Folvite) 1 mg PO DAILY [facility] Last Admin: 01/14/19 08:42 Dose: 1 mg Furosemide (Lasix) 20 mg SLOW IVP DAILY [facility] Last Admin: 01/14/19 08:43 Dose: 20 mg Glucagon (Glucagon) 1 mg IM PRN PRN PRN Reason: Hypoglycemia Guaifenesin (Mucinex) 600 mg PO Q12HR [facility] Last Admin: 01/14/19 08:43 Dose: 600 mg Dextrose/Water (D5w) 1,000 mls @ 0 mls/hr IV .Q0M PRN PRN Reason: Hypoglycemia Insulin Glargine 10 units/ (Miscellaneous Medication) 0.1 mls @ 0 mls/hr SC QAM [facility] Last Admin: 01/14/19 08:43 Dose: 0.1 mls Ceftriaxone Sodium 2 gm/ (Sodium Chloride) 100 mls @ 200 mls/hr IVPB Q24HR [facility] Last Admin: 01/14/19 15:50 Dose: 100 mls Insulin Human Lispro (Humalog) 0 units SC .MILD SLIDING SCALE PRN PRN Reason: Mild Correctional Scale Last Admin: 01/12/19 12:55 Dose: 2 unit Ipratropium Hancock (Atrovent) 2.5 ml NEB [id number] [facility] Last Admin: 01/14/19 15:38 Dose: 2.5 ml Loratadine (Claritin) 10 mg PO DAILY [facility] Last Admin: 01/14/19 08:43 Dose: 10 mg Losartan Potassium (Cozaar) 100 mg PO DAILY [facility] Last Admin: 01/14/19 08:42 Dose: 100 mg Melatonin (Melatonin) 3 mg PO HS PRN PRN Reason: Insomnia Last Admin: 01/13/19 22:34 Dose: 3 mg Metoprolol Tartrate (Lopressor) 50 mg PO BID [facility] Last Admin: 01/14/19 08:43 Dose: 50 mg Nystatin (Mycostatin Powder) 0 gm TOP TIDPRN PRN PRN Reason: . Last Admin: 01/14/19 08:42 Dose: 1 applic Nystatin (Mycostatin Susp) 500,000 unit SSW TID [facility] Last Admin: 01/14/19 15:50 Dose: 5 ml Ondansetron HCl (Zofran) 4 mg IVP Q6H PRN PRN Reason: Nausea/Vomiting Last Admin: 01/09/19 20:10 Dose: 4 mg Polyethylene Glycol (Miralax) 17 gm PO DAILYPRN PRN PRN Reason: CONSTIPATION Last Admin: 01/08/19 22:51 Dose: 17 gm Potassium Chloride (K-Dur) 20 meq PO QAM[facility] Last Admin: 01/14/19 08:43 Dose: 20 meq Pregabalin (Lyrica) 50 mg PO HS [facility] Last Admin: 01/13/19 20:19 Dose: 50 mg Risperidone (Risperidone) 1 mg PO HS [facility] Last Admin: 01/13/19 20:18 Dose: 1 mg Sodium Chloride (Flush - Normal Saline) 10 ml IVF Q12HR [facility] Last Admin: 01/14/19 08:50 Dose: 10 ml Sodium Chloride (Flush - Normal Saline) 10 ml IVF PRN PRN PRN Reason: Saline Flush Last Admin: 01/12/19 12:53 Dose: 10 ml Spironolactone (Aldactone) 25 mg PO QAM-[facility] Last Admin: 01/14/19 08:43 Dose: 25 mg
[2019-01-14] MEDS: Pregabalin 50 MG CAP PO SCH (20:20)
[2019-01-14] MEDS: Doxepin HCl 25 MG CAP PO SCH (20:21)
[2019-01-14] MEDS: risperiDONE 1 MG TAB PO SCH (20:21)
[2019-01-14] MEDS: Atorvastatin Calcium 10 MG TAB PO SCH (20:21)
[2019-01-14] MEDS: Acetaminophen 325 MG TAB PO PRN (20:54)
[2019-01-15] MEDS: Ipratropium Bromide 2.5 ml Neb NEB SCH ×6 (02:31→22:53)
--- NOTE | 2019-01-15 09:36 | PRG ---
DATE OF SERVICE: 01/15/2019 I am writing this note on behalf of Dr. Garcia who is off for the day. The patient has no complaints, and we reviewed her. Dr. Garcia anticipates doing ureteroscopy and pyeloscopy on Tuesday to investigate what is in the left collecting system and if it is a stone, go ahead and remove that. OBJECTIVE: VITAL SIGNS: She has been afebrile and her vital signs stable. She is to have an anemia of 9.5 and 28.8, but that is stable. She has had 1450 of urine out. She is on ceftriaxone, and I held her aspirin in anticipation of surgery. ASSESSMENT AND PLAN: We have a 73-year-old female with Klebsiella sepsis. There is a left collecting system process resulting in hydro that has already been stented with anticipation of a procedure on Tuesday with Dr. Garcia. Job ID: [id number] [facility]
[2019-01-15] MEDS: Losartan 25 MG TAB PO SCH (10:45)
[2019-01-15] MEDS: Spironolactone 25 MG TAB PO SCH (10:45)
[2019-01-15] MEDS: Metoprolol Tartrate 50 MG TAB PO SCH ×2 (10:45→20:41)
[2019-01-15] MEDS: Cyanocobalamin (Vitamin B-12) 1,000 MCG TAB PO SCH (10:45)
[2019-01-15] MEDS: Loratadine 10 MG TAB PO SCH (10:45)
[2019-01-15] MEDS: Folic Acid 1 MG TAB PO SCH (10:45)
[2019-01-15] MEDS: Furosemide 20 MG/2 ML VIAL SLOW IVP SCH (10:46)
[2019-01-15] MEDS: guaiFENesin ER 600 MG TAB PO SCH ×2 (10:46→20:41)
[2019-01-15] MEDS: Escitalopram Oxalate 20 mg Tablet PO SCH (10:46)
[2019-01-15] MEDS: Alogliptin 25 MG TAB PO SCH (10:46)
[2019-01-15] MEDS: Insulin Glargine 10 UNITS in Pre-Filled Syringe 1 EACH SC SCH (10:46)
[2019-01-15] MEDS: Potassium Chloride 20 MEQ TAB PO SCH (10:46)
[2019-01-15] MEDS: Nystatin 100 MU/ML ML SSW SCH ×3 (10:47→21:08)
[2019-01-15] MEDS: Bupropion 150 MG SR TAB PO SCH (10:47)
--- NOTE | 2019-01-15 10:51 | PDOC.PN ---
- Subjective Encounter Start Date: 01/15/19 Encounter Start Time: 12:10 Subjective: Stomach only hurts a bit with exam, otherwise no complaints. No -: fever. No SOB. - Objective Resuscitation Status - Order Detail: 01/07/19 22:05 Resuscitation Status Routine Resuscitation Status: FULL: Full Resuscitation Discussed with: patient NASREEN Reviewed: Yes Vital Signs & Weight: Vital Signs (12 hours) Temp Pulse Resp BP Pulse Ox 01/15/19 07:57 69 23 H 97 01/15/19 07:41 98 01/15/19 04:22 97.8 F 63 20 132/64 96 01/15/19 00:00 98.2 F Weight Admit Weight 238 lb 9.6 oz Weight 237 lb 2 oz Most Recent Monitor Data Heart Rate from ECG 67 NIBP 164/89 NIBP BP-Mean 114 Respiration from ECG 23 SpO2 100 I&O: 01/14/19 01/15/19 01/16/19 06:59 06:59 06:59 Intake Total 1500 290 Output Total 1650 1450 Balance -150 -1160 Result Diagrams: 01/13/19 03:22 01/13/19 03:22 Additional Labs: Accuchecks 01/15/19 01/15/19 01/14/19 10:25 06:30 20:54 POC Glucose 192 H 135 H 164 H 01/14/19 01/14/19 16:36 10:51 POC Glucose 197 H 215 H Phys Exam - Physical Examination Constitutional: NAD HEENT: moist MMs Respiratory: no wheezing, no rales, no rhonchi Cardiovascular: RRR Gastrointestinal: soft, positive bowel sounds mild TTP JERED Neurological: non-focal, moves all 4 limbs Psychiatric: normal affect, A&O x 3 Dx/Plan (1) Complicated UTI (urinary tract infection) Code(s): N39.0 - URINARY TRACT INFECTION, SITE NOT SPECIFIED Status: Acute Comment: s/p left ureteral stent, plan for pyeloscopy on Tue and possible biopsy , stone removal if found (2) Bacteremia due to Klebsiella pneumoniae Code(s): R78.81 - BACTEREMIA Status: Acute Comment: Klebsiella, due to complicated UTI, Dr. Hermosillo following, transition to oral abx before d/c (3) Sepsis Code(s): A41.9 - SEPSIS, UNSPECIFIED ORGANISM Status: Acute (4) SLE (systemic lupus erythematosus) Code(s): M32.9 - SYSTEMIC LUPUS ERYTHEMATOSUS, UNSPECIFIED Status: Chronic (5) Pancreatic mass Status: Acute (6) Lung mass Code(s): R91.8 - OTHER NONSPECIFIC ABNORMAL FINDING OF LUNG FIELD Status: Acute (7) Renal mass Code(s): N28.89 - OTHER SPECIFIED DISORDERS OF KIDNEY AND URETER Status: Acute Comment: likely metastatic cancer, biopsy renal mass if able, otherwise will need endoscopy and pancreatic biopsy by Dr. Reed as an outpatient, appreciate Heme/Onc recs - Plan cont current plan of care, continue antibiotics * . - Discharge Day Encounter end time: 12:20
[2019-01-15] MEDS: cefTRIAXone\\ROCEPHIN 2 GM in Sodium Chloride 0.9% 100 ML IVPB SCH (13:32)
[2019-01-15] MEDS: Acetaminophen 325 MG TAB PO PRN (20:40)
[2019-01-15] MEDS: risperiDONE 1 MG TAB PO SCH (20:41)
[2019-01-15] MEDS: Doxepin HCl 25 MG CAP PO SCH (20:41)
[2019-01-15] MEDS: Atorvastatin Calcium 10 MG TAB PO SCH (20:41)
[2019-01-15] MEDS: Pregabalin 50 MG CAP PO SCH (20:42)
[2019-01-16] MEDS: Ipratropium Bromide 2.5 ml Neb NEB SCH ×6 (02:27→22:34)
[2019-01-16] MEDS: Potassium Chloride 20 MEQ TAB PO SCH (08:15)
--- NOTE | 2019-01-16 08:20 | PRG ---
DATE OF SERVICE: 01/16/2019 SUBJECTIVE: The patient is resting comfortably. OBJECTIVE: VITAL SIGNS: Stable. She is afebrile. I's and O's; 1310 in, 2425 out. GENERAL: The patient in no acute distress. ABDOMEN: Morbidly obese, protuberant. No CVA tenderness. No rigidity. No rebound. PERTINENT LABORATORY DATA: From January 13, white count is 4.8, hemoglobin 9.5, and platelet 180. Coagulation profile is within normal limits. Renal function; creatinine 0.9 on January 13. Previous blood culture, Klebsiella positive. Repeat blood culture negative. Urine culture is negative. Bone scan negative. IMPRESSION: A 73-year-old female with past medical history of, 1. Coronary artery disease, status post stent, last Plavix on December 31, 2018. 2. History of diabetes. 3. Morbid obesity. 4. Current admission due to history of fever, Klebsiella urosepsis. Repeat culture negative. 5. History of rheumatoid arthritis, on previous immunosuppressive therapy on hold. 6. History of multiple pulmonary mets, primary source of metastatic disease yet to be determined. 7. Urologic tissues of left renal pelvic proximal ureteral hyperdensity of unclear etiology. Differential diagnosis includes infected stone versus ureteral or renal pelvic mass. 8. Newly appreciated left endophytic renal mass. PLAN: The patient is n.p.o. after midnight for cysto, ureteroscopy, possible laser lithotripsy versus renal pelvic mass biopsy to rule out malignancy. N.p.o. after midnight. Continue Rocephin. Pending ureteroscopy, pyeloscopy, will address renal mass as this is a separate issue. [facility] ID[facility] [id number] [facility]
[2019-01-16] MEDS: guaiFENesin ER 600 MG TAB PO SCH ×2 (09:15→21:00)
[2019-01-16] MEDS: Alogliptin 25 MG TAB PO SCH (09:15)
[2019-01-16] MEDS: Escitalopram Oxalate 20 mg Tablet PO SCH (09:15)
[2019-01-16] MEDS: Bupropion 150 MG SR TAB PO SCH (09:15)
[2019-01-16] MEDS: Losartan 25 MG TAB PO SCH (09:16)
[2019-01-16] MEDS: Furosemide 20 MG/2 ML VIAL SLOW IVP SCH (09:16)
[2019-01-16] MEDS: Spironolactone 25 MG TAB PO SCH (09:16)
[2019-01-16] MEDS: Folic Acid 1 MG TAB PO SCH (09:17)
[2019-01-16] MEDS: Loratadine 10 MG TAB PO SCH (09:17)
[2019-01-16] MEDS: Cyanocobalamin (Vitamin B-12) 1,000 MCG TAB PO SCH (09:17)
[2019-01-16] MEDS: Insulin Glargine 10 UNITS in Pre-Filled Syringe 1 EACH SC SCH (09:17)
[2019-01-16] MEDS: Nystatin 100 MU/ML ML SSW SCH ×3 (09:17→21:20)
[2019-01-16] MEDS: Metoprolol Tartrate 50 MG TAB PO SCH ×2 (09:17→21:00)
--- NOTE | 2019-01-16 09:41 | PDOC.PN ---
- Subjective Encounter Start Date: 01/16/19 Encounter Start Time: 12:20 Subjective: Patient without complaint. NO fever. No abdominal pain. Eating -: well. - Objective Resuscitation Status - Order Detail: 01/07/19 22:05 Resuscitation Status Routine Resuscitation Status: FULL: Full Resuscitation Discussed with: patient NASREEN Reviewed: Yes Vital Signs & Weight: Vital Signs (12 hours) Temp Pulse Resp Pulse Ox 01/16/19 07:22 97 01/16/19 06:46 64 15 95 01/16/19 03:39 97.6 F 01/15/19 23:52 97.8 F 01/15/19 22:53 95 Weight Admit Weight 238 lb 9.6 oz Weight 237 lb 2 oz Most Recent Monitor Data Heart Rate from ECG 63 NIBP 116/64 NIBP BP-Mean 81 Respiration from ECG 20 SpO2 92 I&O: 01/15/19 01/16/19 01/17/19 06:59 06:59 06:59 Intake Total 290 1310 Output Total 1450 2425 Balance -1160 -1115 Result Diagrams: 01/13/19 03:22 01/13/19 03:22 Additional Labs: Accuchecks 01/16/19 01/15/19 01/15/19 05:30 20:15 16:19 POC Glucose 146 H 156 H 191 H 01/15/19 10:25 POC Glucose 192 H Phys Exam - Physical Examination Constitutional: NAD HEENT: moist MMs Respiratory: no wheezing, no rales, no rhonchi Cardiovascular: RRR Gastrointestinal: soft, non-tender, positive bowel sounds Neurological: non-focal, moves all 4 limbs Psychiatric: normal affect, A&O x 3 Dx/Plan (1) Complicated UTI (urinary tract infection) Code(s): N39.0 - URINARY TRACT INFECTION, SITE NOT SPECIFIED Status: Acute Comment: s/p left ureteral stent, plan for pyeloscopy on Tue and possible biopsy , stone removal if found (2) Bacteremia due to Klebsiella pneumoniae Code(s): R78.81 - BACTEREMIA Status: Acute Comment: Klebsiella, due to complicated UTI, on Rocephin since 01/11/2019, Dr. Hermosillo following, transition to oral abx before d/c (3) Sepsis Code(s): A41.9 - SEPSIS, UNSPECIFIED ORGANISM Status: Acute (4) SLE (systemic lupus erythematosus) Code(s): M32.9 - SYSTEMIC LUPUS ERYTHEMATOSUS, UNSPECIFIED Status: Chronic (5) Pancreatic mass Status: Acute (6) Lung mass Code(s): R91.8 - OTHER NONSPECIFIC ABNORMAL FINDING OF LUNG FIELD Status: Acute (7) Renal mass Code(s): N28.89 - OTHER SPECIFIED DISORDERS OF KIDNEY AND URETER Status: Acute Comment: likely metastatic cancer, biopsy renal mass if able, otherwise will need endoscopy and pancreatic biopsy by Dr. Reed as an outpatient, appreciate Heme/Onc recs - Plan cont current plan of care, continue antibiotics, PT/OT, DVT proph w/SCDs * . - Discharge Day Encounter end time: 12:30
[2019-01-16 12:25] VITALS: BMI 40.6
[2019-01-16] MEDS: cefTRIAXone\\ROCEPHIN 2 GM in Sodium Chloride 0.9% 100 ML IVPB SCH (14:15)
--- NOTE | 2019-01-16 15:43 | PDOC.CTH ---
Cardiology Progress Note - Subjective She is doing very well. Her breathing is not an issue at all. - Objective Vital Signs Pulse Pulse Pulse Resp BP BP Pulse Ox 01/16/19 14:16 66 16 98 01/16/19 11:45 71 71 133/77 140/72 01/16/19 10:38 69 18 96 01/16/19 07:22 97 01/16/19 06:46 64 15 95 Pulse Ox Pulse Ox 01/16/19 14:16 01/16/19 11:45 94 L 97 01/16/19 10:38 01/16/19 07:22 01/16/19 06:46 Admit Weight 238 lb 9.6 oz Weight 237 lb 2 oz 01/15/19 01/16/19 01/17/19 06:59 06:59 06:59 Intake Total 290 1310 Output Total 1450 2425 550 Balance -3736 -7574 -234 - Physical Examination General/Neuro: alert & oriented x3, NAD Neck: no JVD present Lungs: unlabored respirations Heart: RRR Abdomen: NT/ND Extremities: + edema B (1+) - Telemetry Telemetry Rhythm: NSR - Labs Result Diagrams: 01/13/19 03:22 01/13/19 03:22 Troponin/CKMB Troponin I Less than 0.010 ng/mL (< 0.028) 01/07/19 19:12 - Assessment/Plan 1. Acute on chronic diastolic heart failure 2. JOSE MARTIN 3. Obstructive uropathy. 4. New onset pancreatic mass. PLAN: - Seems euvolemic today. - Plan to have cystoscopy tomorrow. - CV stable. - Will sign off. - Please call with any questions.
[2019-01-16] MEDS: Doxepin HCl 25 MG CAP PO SCH (20:59)
[2019-01-16] MEDS: risperiDONE 1 MG TAB PO SCH (21:00)
[2019-01-16] MEDS: Pregabalin 50 MG CAP PO SCH (21:00)
[2019-01-16] MEDS: Atorvastatin Calcium 10 MG TAB PO SCH (21:01)
[2019-01-17] MEDS: Ipratropium Bromide 2.5 ml Neb NEB SCH ×6 (02:23→22:20)
[2019-01-17 05:58] LABS: #Eosinphils 0.2 thou/uL (0.0-0.7); #Lymphocytes 1.7 thou/uL (1.20-3.40); #Monocytes 1.1 thou/uL (0.11-0.59); #Neutrophils 4.9 thou/uL (1.40-6.50); %Basophils 0.3 % (0.0-1.0); %Eosinophils 2.6 % (0.0-10.0); %Lymphocytes 21.3 % (21.0-51.0); %Monocytes 13.5 % (0.0-10.0); %Neutrophils 62.4 % (42.0-75.0); Hemoglobin 12.1 g/dL (12.0-16.0); Mean Corpuscular HGB CONC 32.7 g/dL (32.0-36.0); Mean Corpuscular Hemoglobin 31.9 pg (27.0-31.0); Mean Corpuscular Volume 97.7 fL (78.0-98.0); Mean Platelet Volume 8.3 fL (7.4-10.4); Platelet Count 305 thou/uL (130-400); RBC Distribution Width 16.5 % (11.5-14.5); White Blood Cell (WBC) Count 7.9 thou/uL (4.8-10.8)
[2019-01-17 06:23] LABS: Anion Gap 14 mmol/L (10-20); BUN (Urea Nitrogen) 22 mg/dL (9.8-20.1); Calc. Creatinine Clearance 76 mL/min (70-130); Calcium 9.9 mg/dL (7.8-10.44); Carbon Dioxide 27 mmol/L (23-31); Chloride 100 mmol/L (98-107); Estimated GFR-MDRD 47; Glucose 134 mg/dL (83-110); Potassium 4.5 mmol/L (3.5-5.1); Sodium 136 mmol/L (136-145)
[2019-01-17] MEDS ORDERED: Fentanyl 250 MCG/5 ML VIAL ONE (08:07)
[2019-01-17] MEDS: Alogliptin 25 MG TAB PO SCH (08:46)
[2019-01-17] MEDS: Potassium Chloride 20 MEQ TAB PO SCH (08:46)
[2019-01-17] MEDS: Losartan 25 MG TAB PO SCH (08:46)
[2019-01-17] MEDS: Cyanocobalamin (Vitamin B-12) 1,000 MCG TAB PO SCH (08:47)
[2019-01-17] MEDS: Folic Acid 1 MG TAB PO SCH (08:47)
[2019-01-17] MEDS: Metoprolol Tartrate 50 MG TAB PO SCH ×2 (08:47→21:13)
[2019-01-17] MEDS: Escitalopram Oxalate 20 mg Tablet PO SCH (08:47)
[2019-01-17] MEDS: Loratadine 10 MG TAB PO SCH (08:47)
[2019-01-17] MEDS: guaiFENesin ER 600 MG TAB PO SCH ×2 (08:47→21:13)
[2019-01-17] MEDS: Spironolactone 25 MG TAB PO SCH (08:47)
[2019-01-17] MEDS: Furosemide 20 MG/2 ML VIAL SLOW IVP SCH (08:48)
--- NOTE | 2019-01-17 09:56 | PDOC.PN ---
- Subjective Encounter Start Date: 01/17/19 Encounter Start Time: 19:30 Subjective: Patient without current complaints. Is a little nervous about the -: kidney mass biopsy tomorrow since she doesn't like needles. - Objective Resuscitation Status - Order Detail: 01/07/19 22:05 Resuscitation Status Routine Resuscitation Status: FULL: Full Resuscitation Discussed with: madina DOWNEY Reviewed: Yes Vital Signs & Weight: Vital Signs (12 hours) Temp Pulse Resp Pulse Ox 01/17/19 08:00 96.4 F L 01/17/19 07:58 67 21 H 96 01/17/19 06:00 96 01/17/19 04:13 97.4 F L 01/17/19 02:23 65 18 95 01/17/19 00:11 97.4 F L 01/16/19 22:34 68 21 H 98 Weight Admit Weight 238 lb 9.6 oz Weight 237 lb 2 oz Most Recent Monitor Data Heart Rate from ECG 63 NIBP 155/94 NIBP BP-Mean 114 Respiration from ECG 16 SpO2 100 I&O: 01/16/19 01/17/19 01/18/19 06:59 06:59 06:59 Intake Total 1310 1100 Output Total 2425 1550 Balance -1115 -450 Result Diagrams: 01/17/19 05:19 01/17/19 05:19 Additional Labs: Accuchecks 01/17/19 01/16/19 01/16/19 06:03 19:47 17:18 POC Glucose 155 H 212 H 165 H 01/16/19 11:29 POC Glucose 202 H Phys Exam - Physical Examination Constitutional: NAD HEENT: moist MMs Respiratory: no wheezing, no rales, no rhonchi Cardiovascular: RRR, no significant murmur Gastrointestinal: soft, non-tender, positive bowel sounds Neurological: non-focal, moves all 4 limbs Psychiatric: normal affect, A&O x 3 Dx/Plan (1) Complicated UTI (urinary tract infection) Code(s): N39.0 - URINARY TRACT INFECTION, SITE NOT SPECIFIED Status: Acute Comment: s/p left ureteral stent, pyeloscopy with mass found in ureter, biopsied , plan for percutaneous renal mass biopsy tomorrow if possible, no anticoagulants for now per Dr. Whittaker (2) Bacteremia due to Klebsiella pneumoniae Code(s): R78.81 - BACTEREMIA Status: Acute Comment: Klebsiella, due to complicated UTI, on Rocephin since 01/11/2019, Dr. Hermosillo following, transition to oral abx before d/c (3) Sepsis Code(s): A41.9 - SEPSIS, UNSPECIFIED ORGANISM Status: Acute (4) SLE (systemic lupus erythematosus) Code(s): M32.9 - SYSTEMIC LUPUS ERYTHEMATOSUS, UNSPECIFIED Status: Chronic (5) Pancreatic mass Status: Acute (6) Lung mass Code(s): R91.8 - OTHER NONSPECIFIC ABNORMAL FINDING OF LUNG FIELD Status: Acute (7) Renal mass Code(s): N28.89 - OTHER SPECIFIED DISORDERS OF KIDNEY AND URETER Status: Acute Comment: likely metastatic cancer, biopsy renal mass if able, otherwise will need endoscopy and pancreatic biopsy by Dr. Reed as an outpatient, appreciate Heme/Onc recs - Plan cont current plan of care, continue antibiotics * . - Discharge Day Encounter end time: 07:50
[2019-01-17] MEDS ORDERED: Iothalamate Meglumine 60% 50 ML VIAL FS ONE (10:37)
--- NOTE | 2019-01-17 12:41 | RAD ---
RETROGRADE PYELOGRAM: Date: 01-17-19 Comparison: 01-10-19 History: Ureteroscopy with laser lithotripsy. FINDINGS: Two images from a retrograde pyelogram were provided. First image demonstrates a double J ureteral st ent on the left. The second image demonstrates stent material within the left ureter with opacificati on of the left renal collecting system. There is a mass like filling defect in the renal pelvis on th e left suggesting an underlying mass lesion. There is mild blunting of the calices on the left. IMPRESSION: Retrograde pyelogram as detailed above. Filling defect in the left renal pelvis, consistent with an u nderlying mass lesion as seen on the 01-11-19 CT examination. POS: [facility]
[2019-01-17] MEDS: Bupropion 150 MG SR TAB PO SCH (14:00)
[2019-01-17] MEDS: Insulin Glargine 10 UNITS in Pre-Filled Syringe 1 EACH SC SCH (14:02)
[2019-01-17] MEDS: Nystatin 100 MU/ML ML SSW SCH ×2 (14:02→19:11)
--- NOTE | 2019-01-17 14:04 | OP ---
DATE OF PROCEDURE: 01/17/2019 PREOPERATIVE DIAGNOSES: 1. A 73-year-old female with history of pulmonary metastasis, primary malignancy yet to be determined. 2. Left renal pelvic proximal ureteral mass, hyperdense with enhancement. 3. History of Klebsiella urosepsis. 4. Left renal endophytic mass newly appreciated, measuring 3.6 cm. POSTOPERATIVE DIAGNOSES: 1. A 73-year-old female with history of pulmonary metastasis, primary malignancy yet to be determined. 2. Left renal pelvic proximal ureteral mass, hyperdense with enhancement. 3. History of Klebsiella urosepsis. 4. Left renal endophytic mass newly appreciated, measuring 3.6 cm. PROCEDURES PERFORMED: Cystoscopy, left retrograde, 6 x 24 double-J ureteral stent exchange, flexible ureteroscopy, pyeloscopy, renal pelvic ureteral mass biopsy, laser lithotripsy of ureteral mass. INTRAOPERATIVE FINDINGS: 1. Bladder is grossly unremarkable. 2. At the level of the proximal ureter and renal pelvis demonstrating a large filling defect. Morphology is smooth, appears to be soft tissue and moiety. We laser lithotripsied the mass demonstrating vascularity consistent with soft tissue, matrix stone ruled out. INDICATIONS FOR PROCEDURE AND HISTORY: Ms. Nunez is a 73-year-old female, who presented with history of fever and weakness, found to have Klebsiella urosepsis. Imaging workup demonstrated a pancreatic mass in which malignancy cannot be ruled out, she also had a hyperdense material in the renal pelvis and proximal ureter. Subsequent CT with contrast of chest, abdomen, and pelvis demonstrated multiple pulmonary mets, the mass in the renal pelvis and ureter appear to enhance and a newly appreciated endophytic renal mass only appreciated on contrast imaging was noted. She is scheduled for outpatient pancreatic mass biopsy, presents today for ureteroscopy and pyeloscopy for further workup. Risks and complications and indications of the procedure was reviewed with the patient and daughter in detail including, but not limited to, bleeding, pain, infection, injury to adjacent organs, recurrence of urosepsis, PE, and perioperative morbidity or mortality. All questions were answered to her satisfaction and she desired to proceed. DESCRIPTION OF PROCEDURE: After an informed consent was signed, the patient was taken to the operating room, placed in a dorsal lithotomy position with the genital area prepped and draped in the usual surgical sterile fashion. A 21-Latvian cystoscope was utilized for cystoscopy. I again surveyed the bladder, which demonstrated no evidence of bladder mass. The left ureteral stent was removed to the level of the meatus and a 0.35 Sensor wire was able to be passed without difficulty to the level of the upper pole. Retrograde pyelogram with wire in- situ demonstrates a large filling defect in the renal pelvis and the proximal ureter consistent with CT. At this time, a second safety wire of 0.35 Super Stiff was passed. A 13/15-Latvian by 28 cm navigator was able to be passed without significant issues. This was passed to the level of the proximal ureter. A flexible ureteroscope was passed to visualize the mass of concern. The safety wire was then subsequently removed. Pyeloscopy demonstrated and appeared to be a round, smooth mass in the renal pelvis and ureter. There was some surrounding hematoma, which hindered visualization. My initial thought that this was a matrix stone. However, we did obtain using big biopsy, backloading biopsy. We biopsied multiple areas. We did send a frozen, which appeared to be suboptimal. While we were waiting for pathology, I did start lasering as a differential diagnosis of the matrix stone. Upon lasering with a 365 micron laser fiber, it appeared to have a soft tissue density and moreover, there was vascularity within the mass causing oozing and this demonstrates that it is not a matrix stone as there was vascularity within it. Therefore, we did obtain further biopsy of the mass in its most distal portion. Multiple biopsy passes were performed. There appeared to be some oozing from the mass; however, was not significant. As it appeared to be a vascular mass concerning for malignancy, decision was made to stent. A 6 x 26 double-J ureteral stent was passed without difficulty. A 22-[place]vian 3-way [place] catheter with CBI port plug was attached to gravity demonstrating pink red tinged urine. She tolerated the procedure well and transported to the recovery room in stable condition. Await final pathology regarding final disposition. [facility] [id number] [facility]
[2019-01-17] MEDS: Nystatin 500,000 UNITS/5 ML UDCUP SSW SCH ×2 (15:18→21:13)
[2019-01-17] MEDS: cefTRIAXone\\ROCEPHIN 2 GM in Sodium Chloride 0.9% 100 ML IVPB SCH (15:18)
[2019-01-17] MEDS ORDERED: Glycopyrrolate 0.2 MG/ML 5 ML SYRINGE ONE (15:45)
[2019-01-17] MEDS ORDERED: PROPOFOL 200 MG/20 ML VIAL ONE (15:45)
[2019-01-17] MEDS ORDERED: Lidocaine 1% PF 5 ML VIAL ONE (15:45)
[2019-01-17] MEDS ORDERED: Succinylcholine Chloride 20 MG/ML 10 ml SYRINGE FS ONE (15:45)
[2019-01-17] MEDS ORDERED: Rocuronium Bromide 10 MG/ML (10ML VIAL) ONE (15:45)
[2019-01-17] MEDS ORDERED: PHENYLEPHRINE-NS 100 MCG/ML 10 ML SYRINGE ONE (15:45)
[2019-01-17] MEDS ORDERED: ePHEDrine 50 MG/ML VIAL ONE (15:45)
[2019-01-17] MEDS: Atorvastatin Calcium 10 MG TAB PO SCH (21:13)
[2019-01-17] MEDS: Pregabalin 50 MG CAP PO SCH (21:13)
[2019-01-17] MEDS: risperiDONE 1 MG TAB PO SCH (21:13)
[2019-01-17] MEDS: Doxepin HCl 25 MG CAP PO SCH (21:13)
[2019-01-17] MEDS: HumaLOG 300 UNITS/3 ML VIAL SC PRN (21:15)
[2019-01-18] MEDS: Ipratropium Bromide 2.5 ml Neb NEB SCH ×6 (02:13→22:12)
[2019-01-18 06:24] LABS: #Eosinphils 0.1 thou/uL (0.0-0.7); #Lymphocytes 1.6 thou/uL (1.20-3.40); #Monocytes 1.1 thou/uL (0.11-0.59); #Neutrophils 7.1 thou/uL (1.40-6.50); %Basophils 0.3 % (0.0-1.0); %Eosinophils 0.6 % (0.0-10.0); %Lymphocytes 15.8 % (21.0-51.0); %Monocytes 11.4 % (0.0-10.0); %Neutrophils 71.9 % (42.0-75.0); Hemoglobin 11.1 g/dL (12.0-16.0); Mean Corpuscular HGB CONC 32.5 g/dL (32.0-36.0); Mean Corpuscular Volume 98.3 fL (78.0-98.0); Mean Platelet Volume 8.3 fL (7.4-10.4); Platelet Count 313 thou/uL (130-400); RBC Distribution Width 16.2 % (11.5-14.5); Red Blood Cell (RBC) Count 3.48 mill/uL (4.20-5.40); White Blood Cell (WBC) Count 9.8 thou/uL (4.8-10.8)
[2019-01-18 06:52] LABS: Anion Gap 15 mmol/L (10-20); BUN (Urea Nitrogen) 24 mg/dL (9.8-20.1); Calc. Creatinine Clearance 73 mL/min (70-130); Calcium 9.2 mg/dL (7.8-10.44); Carbon Dioxide 24 mmol/L (23-31); Chloride 99 mmol/L (98-107); Estimated GFR-MDRD 45; Glucose 214 mg/dL (83-110); Potassium 4.8 mmol/L (3.5-5.1); Sodium 133 mmol/L (136-145)
--- NOTE | 2019-01-18 08:27 | PRG ---
DATE OF SERVICE: 01/18/2019 SUBJECTIVE: The patient resting comfortably. Denies discomfort. OBJECTIVE: VITAL SIGNS: Stable. She is afebrile. I's and O's demonstrates 2250 of urine out. It is sandra clear. ABDOMEN: Soft, nontender, nondistended. LABORATORY DATA: Today are stable. White count 9, hemoglobin 11, platelet 213. Creatinine 1.1. Pertinent labs, blood culture and urine culture negative. Previous history of urine culture with Klebsiella. IMPRESSION: 1. Ms. Velasco is a 73-year-old female, admitted with Klebsiella urosepsis, currently resolved. 2. History of diabetes. 3. Morbid obesity. 4. History of rheumatoid arthritis on previous immunosuppressive therapy on hold. 5. History of multiple pulmonary metastasis and primary source of metastatic disease yet to be determined. 6. Left renal pelvic mass, hyperdensity with enhancement. 7. Left endophytic renal mass. 8. Pancreatic mass, possible pancreatic malignancy. She is postop day #1 for cystoscopy, left ureteroscopy, stent exchange, renal pelvic biopsy. Endoscopically, it was atypical in character. I will await pathology and renal pelvic mass. I did speak with Radiology yesterday, they will attempt a CT-guided left renal mass biopsy. Please continue to hold her antiplatelets, immunosuppressive therapy, as she is undergoing active intervention and procedures, i.e., biopsy. Job ID: [id number] [facility]
[2019-01-18] MEDS: Losartan 25 MG TAB PO SCH (09:25)
[2019-01-18] MEDS: Escitalopram Oxalate 20 mg Tablet PO SCH (09:26)
[2019-01-18] MEDS: Spironolactone 25 MG TAB PO SCH (09:26)
[2019-01-18] MEDS: Nystatin 500,000 UNITS/5 ML UDCUP SSW SCH ×3 (09:26→20:18)
[2019-01-18] MEDS: Folic Acid 1 MG TAB PO SCH (09:26)
[2019-01-18] MEDS: Alogliptin 25 MG TAB PO SCH (09:27)
[2019-01-18] MEDS: Potassium Chloride 20 MEQ TAB PO SCH (09:27)
[2019-01-18] MEDS: Metoprolol Tartrate 50 MG TAB PO SCH ×2 (09:27→20:18)
[2019-01-18] MEDS: Bupropion 150 MG SR TAB PO SCH (09:27)
[2019-01-18] MEDS: Cyanocobalamin (Vitamin B-12) 1,000 MCG TAB PO SCH (09:27)
[2019-01-18] MEDS: Loratadine 10 MG TAB PO SCH (09:27)
[2019-01-18] MEDS: guaiFENesin ER 600 MG TAB PO SCH ×2 (09:27→20:18)
[2019-01-18] MEDS: Furosemide 20 MG/2 ML VIAL SLOW IVP SCH (09:27)
[2019-01-18] MEDS: Insulin Glargine 10 UNITS in Pre-Filled Syringe 1 EACH SC SCH (09:28)
--- NOTE | 2019-01-18 09:37 | PDOC.PN ---
- Subjective Encounter Start Date: 01/18/19 Encounter Start Time: 12:00 Subjective: Patient doing ok with PT. No SOB/chest pain. No N/V. - Objective Resuscitation Status - Order Detail: 01/07/19 22:05 Resuscitation Status Routine Resuscitation Status: FULL: Full Resuscitation Discussed with: patient NASREEN Reviewed: Yes Vital Signs & Weight: Vital Signs (12 hours) Temp Pulse Resp Pulse Ox 01/18/19 07:14 97.8 F 01/18/19 06:35 99 01/18/19 06:33 69 16 99 01/18/19 04:14 97.4 F L 01/18/19 00:08 97.8 F 01/17/19 22:20 74 14 100 Weight Admit Weight 238 lb 9.6 oz Weight 233 lb Most Recent Monitor Data Heart Rate from ECG 68 NIBP 131/58 NIBP BP-Mean 82 Respiration from ECG 17 SpO2 99 I&O: 01/17/19 01/18/19 01/19/19 06:59 06:59 06:59 Intake Total 1100 1900 Output Total 1550 2250 Balance -450 -350 Result Diagrams: 01/18/19 05:38 01/18/19 05:38 Additional Labs: Accuchecks 01/18/19 01/17/19 01/17/19 05:45 19:48 16:10 POC Glucose 226 H 309 H 245 H 01/17/19 13:59 POC Glucose 172 H Phys Exam - Physical Examination Constitutional: NAD HEENT: moist MMs Respiratory: no wheezing, no rales, no rhonchi Cardiovascular: RRR Gastrointestinal: soft, positive bowel sounds Neurological: non-focal Psychiatric: normal affect, A&O x 3 Dx/Plan (1) Complicated UTI (urinary tract infection) Code(s): N39.0 - URINARY TRACT INFECTION, SITE NOT SPECIFIED Status: Acute Comment: s/p left ureteral stent, pyeloscopy with mass found in ureter, biopsied , plan for percutaneous renal mass biopsy tomorrow if possible, no anticoagulants for now per Dr. Whittaker (2) Bacteremia due to Klebsiella pneumoniae Code(s): R78.81 - BACTEREMIA Status: Acute Comment: Klebsiella, due to complicated UTI, on Rocephin since 01/11/2019, Dr. Hermosillo following, transition to oral abx before d/c (3) Sepsis Code(s): A41.9 - SEPSIS, UNSPECIFIED ORGANISM Status: Acute (4) SLE (systemic lupus erythematosus) Code(s): M32.9 - SYSTEMIC LUPUS ERYTHEMATOSUS, UNSPECIFIED Status: Chronic (5) Pancreatic mass Status: Acute (6) Lung mass Code(s): R91.8 - OTHER NONSPECIFIC ABNORMAL FINDING OF LUNG FIELD Status: Acute (7) Renal mass Code(s): N28.89 - OTHER SPECIFIED DISORDERS OF KIDNEY AND URETER Status: Acute Comment: likely metastatic cancer, biopsy renal mass if able, otherwise will need endoscopy and pancreatic biopsy by Dr. Reed as an outpatient, appreciate Heme/Onc recs - Plan cont current plan of care, continue antibiotics attempt percutaneous renal mass biopsy tomorrow morning * . - Discharge Day Encounter end time: 12:10
[2019-01-18 12:57] VITALS: BP 116/48
[2019-01-18] MEDS: cefTRIAXone\\ROCEPHIN 2 GM in Sodium Chloride 0.9% 100 ML IVPB SCH (15:08)
[2019-01-18] MEDS: Doxepin HCl 25 MG CAP PO SCH (20:17)
[2019-01-18] MEDS: Atorvastatin Calcium 10 MG TAB PO SCH (20:18)
[2019-01-18] MEDS: risperiDONE 1 MG TAB PO SCH (20:18)
[2019-01-18] MEDS: Pregabalin 50 MG CAP PO SCH (20:18)
[2019-01-18] MEDS: Nystatin Powder 15 GM BOT TOP PRN (20:20)
[2019-01-18] MEDS: HumaLOG 300 UNITS/3 ML VIAL SC PRN (20:30)
[2019-01-18] MEDS: Melatonin 3 MG TAB PO PRN (20:54)
[2019-01-19] MEDS: Ipratropium Bromide 2.5 ml Neb NEB SCH ×4 (02:04→14:03)
[2019-01-19 05:19] LABS: Anion Gap 13 mmol/L (10-20); BUN (Urea Nitrogen) 29 mg/dL (9.8-20.1); Calc. Creatinine Clearance 73 mL/min (70-130); Calcium 9.7 mg/dL (7.8-10.44); Carbon Dioxide 26 mmol/L (23-31); Chloride 100 mmol/L (98-107); Estimated GFR-MDRD 46; Glucose 129 mg/dL (83-110); Potassium 4.7 mmol/L (3.5-5.1); Sodium 134 mmol/L (136-145)
[2019-01-19 05:31] LABS: Band 1 % (5-11); Hemoglobin 11.4 g/dL (12.0-16.0); Hypochromia SLIGHT = 6-15 cells (100X) (0-5/hpf); Lymphocytes 11 % (21-51); MDiff Complete? YES; Mean Corpuscular HGB CONC 32.9 g/dL (32.0-36.0); Mean Corpuscular Hemoglobin 32.8 pg (27.0-31.0); Mean Corpuscular Volume 99.7 fL (78.0-98.0); Monocytes 7 % (0-10); Neutrophil 81 % (42-75); Platelet Count 324 thou/uL (130-400); Platelet Morphology Comment Appears Adequate; RBC Distribution Width 16.4 % (11.5-14.5); Red Blood Cell (RBC) Count 3.46 mill/uL (4.20-5.40); White Blood Cell (WBC) Count 8.5 thou/uL (4.8-10.8)
[2019-01-19 08:31] VITALS: TEMP 96.8
[2019-01-19] MEDS ORDERED: Sodium Bicarbonate 2.5 MEQ/5 ML VIAL ONE (08:47)
[2019-01-19] MEDS ORDERED: Midazolam HCl 2 mg/2 ml Vial ONE (08:47)
[2019-01-19] MEDS ORDERED: Fentanyl 100 MCG/2 ML VIAL ONE (08:47)
[2019-01-19] MEDS ORDERED: Sodium Chloride 0.9% 10 ML ONE (08:48)
--- NOTE | 2019-01-19 08:57 | PRG ---
DATE OF SERVICE: 01/19/2019 SUBJECTIVE: The patient at bedside. The patient without complaints. Daughter at bedside. OBJECTIVE: VITAL SIGNS: Stable. She is afebrile. VITAL SIGNS: I's and O's 1510 in and 1975 out. Urine output is clear yellow. ABDOMEN: Morbidly obese and protuberant. PERTINENT LABORATORY DATA: White count 8, hemoglobin 11.4, and platelets 324. Creatinine is 1.1. History of blood culture, Klebsiella x2. Repeat blood cultures/urine culture negative. IMPRESSION: 1. Ms. Velasco is a 73-year-old female, admitted for Klebsiella urosepsis, currently resolved. 2. History of diabetes. 3. Morbid obesity. 4. History of rheumatoid arthritis on previous immunosuppressant therapy on hold. 5. History of multiple pulmonary mets, primary source yet to be determined. 6. Left renal pelvic mass hyperdensity, postop day #2, status post left ureteroscopy, renal pelvic ureteral mass biopsy, stent exchange, pathology pending. 7. Left endophytic renal mass. The patient is scheduled for CT-guided percutaneous biopsy of renal mass today. 8. Pancreatic mass, possible pancreatic malignancy. The patient will be arranged by Dr. Cox as an outpatient at [facility] for pancreatic mass biopsy as an outpatient. From urologic perspective, if patient tolerates renal biopsy without significant issues. Can be discharged to her rehab facility. Discontinue [place] before discharge. Fu appt in chart. Job ID: [id number] [facility]
[2019-01-19] MEDS: Losartan 25 MG TAB PO SCH (10:56)
[2019-01-19] MEDS: Loratadine 10 MG TAB PO SCH (11:02)
[2019-01-19] MEDS: Potassium Chloride 20 MEQ TAB PO SCH (11:02)
[2019-01-19] MEDS: Metoprolol Tartrate 50 MG TAB PO SCH (11:02)
[2019-01-19] MEDS: Spironolactone 25 MG TAB PO SCH (11:02)
[2019-01-19] MEDS: Alogliptin 25 MG TAB PO SCH (11:02)
[2019-01-19] MEDS: Escitalopram Oxalate 20 mg Tablet PO SCH (11:03)
[2019-01-19] MEDS: Bupropion 150 MG SR TAB PO SCH (11:03)
[2019-01-19] MEDS: Nystatin 500,000 UNITS/5 ML UDCUP SSW SCH ×2 (11:03→15:54)
[2019-01-19] MEDS: Folic Acid 1 MG TAB PO SCH (11:03)
[2019-01-19] MEDS: guaiFENesin ER 600 MG TAB PO SCH (11:03)
[2019-01-19] MEDS: Furosemide 20 MG/2 ML VIAL SLOW IVP SCH (11:03)
[2019-01-19] MEDS: Cyanocobalamin (Vitamin B-12) 1,000 MCG TAB PO SCH (11:03)
[2019-01-19] MEDS: Insulin Glargine 10 UNITS in Pre-Filled Syringe 1 EACH SC SCH (11:04)
--- NOTE | 2019-01-19 11:47 | PRG ---
DATE OF SERVICE: 01/19/2019 SUBJECTIVE: This is a 73-year-old female, who was hospitalized with urosepsis and also mass in the left kidney and also pancreatic mass. Continue antibiotics. She had a cystoscopy with biopsy of left pelvic mass by Dr. Garcia couple of days ago. The biopsy is pending. The plan is being made for the biopsy of the left renal mass by Radiology today. The patient is doing better. She remains afebrile. She has no abdominal pain, no nausea or vomiting. PHYSICAL EXAMINATION: VITAL SIGNS: Afebrile. Temperature 98.6 degree Fahrenheit, pulse is 64, blood pressure is 121/61. HEENT: Conjunctivae are clear. CARDIOVASCULAR SYSTEM: First and second heart sounds. LUNGS: Clear to auscultation. ABDOMEN: Soft. No organomegaly. No tenderness. No masses. LABORATORY DATA: From today, CBC; WBC 8500, hemoglobin 11.4, hematocrit 36.5, MCV 99.7, platelet count is 324,000. Chemistry panel; sodium 134, potassium 4.7, chloride 100, bicarb 26, BUN is 29, creatinine 1.16, glucose is 129. PLAN: 1. Biopsy of the renal mass under CT guidance today. 2. When the patient discharged home, we will plan for endosonography as an outpatient. I did talk to Davie Sherwood, her daughter and explained to her the EUS will be done as an outpatient in the near future. I have her contact number and will contact her when scheduled. Job ID: [id number]
--- NOTE | 2019-01-19 12:07 | CT ---
PERCUTANEOUS LEFT RENAL BIOPSY WITH CT GUIDANCE: Clinical history: Indeterminate parenchymal mass at the superior pole left kidney. PROCEDURE: Informed consent was obtained. The patient was escorted to the procedural suite and placed into a pro ne position. The superior pole of the left kidney was then localized and corrections cadet CT imaging was perform ed revealing the mass of the superior pole. Conscious sedation was provided to the patient and the pa tient was monitored accordingly by radiology nurse. Conscious sedation time is reported as 45 minutes . Using standard sterile technique, prepping and draping was performed of the left flank and topical an esthesia was achieved with buffered 1% Lidocaine after which a small skin incision was made, through which a 17 gauge Trocar was advanced into the leading edge of the left renal mass. Inter stylet was r emoved and exchanged for an 18 gauge biopsy needle. Two separate core specimens were then acquired fr om the mass of interest. The specimens were provided to pathologist, Arron Ulrich MD, who deemed the specimens adequate for interpretation. Needle was removed. Post procedural imaging was performed and no significant, unexpected complication. IMPRESSION: Technically successful percutaneous CT guided left renal biopsy. Pathology results are pending. Case discussed with Graciela Garcia DO, via telephone. POS: [facility]
[2019-01-19] MEDS: cefTRIAXone\\ROCEPHIN 2 GM in Sodium Chloride 0.9% 100 ML IVPB SCH (15:54)
--- NOTE | 2019-01-19 16:51 | PDOC.EVN ---
Event Note - Event Note Event Note: DC SUMMARY #[id number]
--- NOTE | 2019-01-19 18:23 | DIS ---
DATE OF ADMISSION: 01/07/2019 DATE OF DISCHARGE: 01/19/2019 ADMITTING DIAGNOSES: Renal mass, pancreatic mass, hypertension, hyperlipidemia, rheumatoid arthritis, and diabetes mellitus. DISCHARGE DIAGNOSES: Renal mass status post biopsy, pancreatic mass, hyperlipidemia, rheumatoid arthritis, hypertension, and diabetes mellitus. HISTORY OF PRESENT ILLNESS: This is a 73-year-old female with a history of diagnosis as mentioned above, presenting with a fever, was admitted to Internal Medicine Team was also followed very closely by GI, Infectious Disease, Oncology, Urology, and Cardiology. The patient was found to have a pancreatic mass, had workups done. The patient had a procedure performed with the urologist. Cystoscopy was performed. The patient also had a CT scan of abdomen and pelvis done. Had a nuclear medicine scan done for bone nuclear medicine scan. The patient had a kidney biopsy performed as well at time of discharge, pathology was pending, not reported. The patient upon the time of discharge, her lab work was within acceptable limits with downtrending creatinine as well as acceptable white blood cell count and hemoglobin levels and vital signs. Case was discussed at length between Dr. Garcia and myself. The patient is to be discharged at this point in time, with no immunosuppressants, no antiplatelets. The patient has had Levaquin for 14 days for Klebsiella pneumoniae found at the ureter was pansensitive. The patient is to follow up with Dr. Cox for her pancreatic mass for possible endoscopy and endoscopic ultrasound and biopsy. For further management and care, outpatient followup was include with PCP, GI, and Urology as well as Oncology. CONDITION: Stable. PROGNOSIS: Guarded. DIET: Low-fat, low-calorie, and high-fiber. FOLLOWUP: Follow up with PCP, GI, and Oncology within 1 week. ACTIVITY: As tolerated with assistance as needed. Case and plan discussed with the patient and family at length. They understand and agree with this plan. Job ID: [id number]
== END 2019-01-19 17:23 | DRG 853 ==
LOC: ERS 18:54 → T4-B 22:59 → SURG A 01-10 11:50 → IMCU/EMU 01-10 17:26
PROVIDERS: ADMIT Family Medicine; ATTEND Family Medicine
PROC: 0T778DZ Dilation of Left Ureter with Intraluminal Device, Via Natural or Artificial Opening Endoscopic (ICD-10-PCS; principal; 2019-01-10)
PROC: BT1F0ZZ Fluoroscopy of Left Kidney, Ureter and Bladder using High Osmolar Contrast (ICD-10-PCS; 2019-01-10)
PROC: 0T778DZ Dilation of Left Ureter with Intraluminal Device, Via Natural or Artificial Opening Endoscopic (ICD-10-PCS; 2019-01-17)
PROC: BT1F0ZZ Fluoroscopy of Left Kidney, Ureter and Bladder using High Osmolar Contrast (ICD-10-PCS; 2019-01-17)
PROC: 0TP98DZ Removal of Intraluminal Device from Ureter, Via Natural or Artificial Opening Endoscopic (ICD-10-PCS; 2019-01-17)
PROC: 0TB48ZX Excision of Left Kidney Pelvis, Via Natural or Artificial Opening Endoscopic, Diagnostic (ICD-10-PCS; 2019-01-17)
PROC: 0TB78ZX Excision of Left Ureter, Via Natural or Artificial Opening Endoscopic, Diagnostic (ICD-10-PCS; 2019-01-17)
PROC: 0TB13ZX Excision of Left Kidney, Percutaneous Approach, Diagnostic (ICD-10-PCS; 2019-01-19)
DX: A41.59 Other Gram-negative sepsis (principal); I50.33 Acute on chronic diastolic (congestive) heart failure; N17.9 Acute kidney failure, unspecified; C78.01 Secondary malignant neoplasm of right lung; I13.0 Hypertensive heart and chronic kidney disease with heart failure and stage 1 through stage 4 chronic kidney disease, or unspecified chronic kidney disease; E87.1 Hypo-osmolality and hyponatremia; C25.9 Malignant neoplasm of pancreas, unspecified; N13.6 Pyonephrosis; D50.0 Iron deficiency anemia secondary to blood loss (chronic); M06.9 Rheumatoid arthritis, unspecified; E78.5 Hyperlipidemia, unspecified; E86.1 Hypovolemia; E11.22 Type 2 diabetes mellitus with diabetic chronic kidney disease; M32.9 Systemic lupus erythematosus, unspecified; E66.01 Morbid (severe) obesity due to excess calories; N18.3 Chronic kidney disease, stage 3 (moderate); I25.10 Atherosclerotic heart disease of native coronary artery without angina pectoris; D41.02 Neoplasm of uncertain behavior of left kidney; D41.22 Neoplasm of uncertain behavior of left ureter; Z68.39 Body mass index [BMI] 39.0-39.9, adult; Z79.4 Long term (current) use of insulin; Z79.899 Other long term (current) drug therapy; Z95.5 Presence of coronary angioplasty implant and graft
CPT/HCPCS: 36415; 36416; 50200; 51701; 71045; 71260; 74176; 74177; 74420; 77012; 78306; 80048; 80053; 80202; 81001; 81003; 81015; 82274; 82378; 82805; 83605; 83735; 83880; 84484; 85025; 85610; 85730; 86301; 87040; 87077; 87086; 87149; 87186; 87804; 88121; 88305; 88331; 88333; 88341; 88342; 94640; 94660; 96365; 96367; A4353; A9503; C1758; C1769; J0456; J0692; J0696; J1825; J1940; J1956; J2001; J2250; J2405; J2704; J3010; J3370; J3490; J7050; Q9961; Q9966

== ENCOUNTER 2019-03-14 13:34 | Emergency (ER) | payer MEDICARE, MEDICAID ==
[2019-03-14 14:53] LABS: #Basophils 0.1 thou/uL (0.0-0.2); #Eosinphils 0.1 thou/uL (0.0-0.7); #Lymphocytes 2.7 thou/uL (1.20-3.40); #Monocytes 0.5 thou/uL (0.11-0.59); #Neutrophils 4.1 thou/uL (1.40-6.50); %Eosinophils 1.2 % (0.0-10.0); %Lymphocytes 36.9 % (21.0-51.0); %Monocytes 6.2 % (0.0-10.0); %Neutrophils 54.7 % (42.0-75.0); Hemoglobin 13.9 g/dL (12.0-16.0); Mean Corpuscular HGB CONC 33.1 g/dL (32.0-36.0); Mean Corpuscular Hemoglobin 29.2 pg (27.0-31.0); Mean Corpuscular Volume 88.4 fL (78.0-98.0); Mean Platelet Volume 7.6 fL (7.4-10.4); Platelet Count 168 thou/uL (130-400); RBC Distribution Width 15.6 % (11.5-14.5); Red Blood Cell (RBC) Count 4.75 mill/uL (4.20-5.40); White Blood Cell (WBC) Count 7.4 thou/uL (4.8-10.8)
[2019-03-14 15:24] LABS: ALT (SGPT) 28 U/L (8-55); AST (SGOT) 30 U/L (5-34); Albumin 3.9 g/dL (3.4-4.8); Alkaline Phosphatase 150 U/L (40-150); Anion Gap 18 mmol/L (10-20); BUN (Urea Nitrogen) 21 mg/dL (9.8-20.1); Bilirubin, Total 0.4 mg/dL (0.2-1.2); Calc. Creatinine Clearance 0 mL/min (70-130); Calcium 9.3 mg/dL (7.8-10.44); Carbon Dioxide 24 mmol/L (23-31); Chloride 99 mmol/L (98-107); Estimated GFR-MDRD 44; Globulin 4.5 g/dL (2.4-3.5); Glucose 118 mg/dL (83-110); Potassium 4.8 mmol/L (3.5-5.1); Protein, Total 8.4 g/dL (6.0-8.3); Sodium 136 mmol/L (136-145)
[2019-03-14 15:32] LABS: Bilirubin Negative (Negative); Blood, Urine Large (Negative); Clarity TURBID (Clear); Glucose, Urine (Dipstick) Negative (Negative); Leukocyte Large (Negative); Nitrite Positive (Negative); Protein, Urine (Dipstick) 30 mg/dL (Neg-Trace); Specific Gravity, Urine 1.013 (1.002-1.036); Urobilinogen 0.2 mg/dL (0.2-1.0); pH, Urine 5.5 (5.0-9.0)
[2019-03-14 15:34] LABS: Bacteria/HPF Rare-Few HPF (None Seen); Hyaline Casts/LPF 7-10 HYALINE CAST LPF (0-3 Hyaline); RBC/HPF GREATER THAN 50-TNTC HPF (0-3); Squamous Epithelial None Seen HPF (0-3)
[2019-03-14 15:36] LABS: Manual Microscopic Reviewed? No Path Casts Seen; Pathc Cast-AUWi Flag 2.78 (0-2.49)
[2019-03-14] MEDS ORDERED: Lidocaine 1% PF 5 ML VIAL ONE (15:57)
[2019-03-14] MEDS ORDERED: cefTRIAXone\\ROCEPHIN 1 GM VIAL ONE (15:57)
== END 2019-03-14 18:25 | disposition home or self-care (01) ==
LOC: ERS 13:34
DX: N39.0 Urinary tract infection, site not specified (principal); R41.82 Altered mental status, unspecified; E11.9 Type 2 diabetes mellitus without complications; I12.9 Hypertensive chronic kidney disease with stage 1 through stage 4 chronic kidney disease, or unspecified chronic kidney disease; N18.9 Chronic kidney disease, unspecified; F03.90 Unspecified dementia, unspecified severity, without behavioral disturbance, psychotic disturbance, mood disturbance, and anxiety; F41.9 Anxiety disorder, unspecified; F32.9 Major depressive disorder, single episode, unspecified; Z79.899 Other long term (current) drug therapy
CPT/HCPCS: 36415; 51701; 80053; 81003; 81015; 84484; 85025; 87086; 93005; 96372; A4353; J0696; J2001

== ENCOUNTER 2019-03-22 08:24 | Outpatient (CLI) | payer MEDICAID, MEDICARE ==
--- NOTE | 2019-03-22 11:08 | MRI ---
Exam: Brain MRI with and without contrast HISTORY: Altered mental status. Loss of thought x1 week. Renal cell carcinoma, 1 month ago. Lupus cer ebritis. Eval for lupus versus process. Eval for intercranial metastases. COMPARISON: 05/19/2016 Correlation: Noncontrast head CT 06/08/2018 FINDINGS: Gradient echo sequence: No hemorrhage Calvarium: Appropriate T1 marrow signal intensity Midline brain parenchyma: Unremarkable Cerebrum:No parenchymal mass, mass effect or midline shift. Age-appropriate atrophy. Cortical serrano wh ite matter differentiation is preserved. T2 and FLAIR white matter hyperintensities due to chronic small vessel ischemic change. Ventricles: No evidence of hydrocephalus. Sinuses and mastoid air cells: Minimal mucosal thickening of the paranasal sinuses. Partial opacifica tion the right mastoid air cells. Diffusion: Central arterial flow is maintained. Absent restricted diffusion. Postcontrast images: No pathologic enhancement of the brain parenchyma. IMPRESSION: 1. No pathologic enhancement of the brain parenchyma. 2. Absent restricted diffusion. No acute infarct. 3. Chronic small vessel ischemic changes of the white matter.
== END 2019-03-22 08:25 | disposition home or self-care (01) ==
LOC: EEG 08:24
PROVIDERS: ATTEND Internal Medicine Hematology & Oncology
DX: G04.81 Other encephalitis and encephalomyelitis (principal); C64.2 Malignant neoplasm of left kidney, except renal pelvis; R41.82 Altered mental status, unspecified; M32.9 Systemic lupus erythematosus, unspecified; I67.83 Posterior reversible encephalopathy syndrome; M32.19 Other organ or system involvement in systemic lupus erythematosus; G93.89 Other specified disorders of brain
CPT/HCPCS: 70553; 80048; 81001; 85027; 85610; 85730; 87086; 93005; 93010; 95816

== ENCOUNTER 2019-03-22 14:03 | Outpatient (CLI) | payer MEDICARE, MEDICAID ==
[2019-03-22 16:03] LABS: Hemoglobin 14.2 g/dL (12.0-16.0); Mean Corpuscular HGB CONC 32.8 g/dL (32.0-36.0); Mean Corpuscular Hemoglobin 28.7 pg (27.0-31.0); Mean Corpuscular Volume 87.7 fL (78.0-98.0); Platelet Count 129 thou/uL (130-400); Red Blood Cell (RBC) Count 4.92 mill/uL (4.20-5.40); White Blood Cell (WBC) Count 6.7 thou/uL (4.8-10.8)
[2019-03-22 16:13] LABS: PTT 25.1 SEC (22.9-36.1); Prothrombin Time 13.7 SEC (12.0-14.7)
[2019-03-22 16:25] LABS: Anion Gap 19 mmol/L (10-20); BUN (Urea Nitrogen) 19 mg/dL (9.8-20.1); Calc. Creatinine Clearance 0 mL/min (70-130); Calcium 9.5 mg/dL (7.8-10.44); Carbon Dioxide 23 mmol/L (23-31); Chloride 100 mmol/L (98-107); Estimated GFR-MDRD 49; Glucose 104 mg/dL (83-110); Potassium 4.6 mmol/L (3.5-5.1); Sodium 137 mmol/L (136-145)
== END 2019-03-22 14:04 | disposition home or self-care (01) ==
LOC: LABBT 14:03
PROVIDERS: ATTEND Urology
DX: Z01.818 Encounter for other preprocedural examination (principal); N13.30 Unspecified hydronephrosis
CPT/HCPCS: 80048; 85027; 85610; 85730; 93005; 93010

== ENCOUNTER 2019-03-30 13:40 | Inpatient (IN) | payer MEDICARE, MEDICAID ==
[2019-03-30 14:27] LABS: #Basophils 0.1 thou/uL (0.0-0.2); #Eosinphils 0.2 thou/uL (0.0-0.7); #Lymphocytes 2.3 thou/uL (1.20-3.40); #Monocytes 0.5 thou/uL (0.11-0.59); #Neutrophils 2.7 thou/uL (1.40-6.50); %Basophils 0.9 % (0.0-1.0); %Lymphocytes 39.4 % (21.0-51.0); %Monocytes 9.1 % (0.0-10.0); %Neutrophils 47.5 % (42.0-75.0); Hemoglobin 13.8 g/dL (12.0-16.0); Mean Corpuscular HGB CONC 33.9 g/dL (32.0-36.0); Mean Corpuscular Hemoglobin 29.7 pg (27.0-31.0); Mean Corpuscular Volume 87.5 fL (78.0-98.0); Mean Platelet Volume 9.2 fL (7.4-10.4); Platelet Count 129 thou/uL (130-400); RBC Distribution Width 18.1 % (11.5-14.5); Red Blood Cell (RBC) Count 4.64 mill/uL (4.20-5.40); White Blood Cell (WBC) Count 5.7 thou/uL (4.8-10.8)
[2019-03-30 15:01] LABS: Bilirubin Negative (Negative); Blood, Urine Large (Negative); Clarity TURBID (Clear); Glucose, Urine (Dipstick) Negative (Negative); Leukocyte Large (Negative); Nitrite Positive (Negative); Protein, Urine (Dipstick) 300 mg/dL (Neg-Trace); Specific Gravity, Urine 1.019 (1.002-1.036); pH, Urine 6.5 (5.0-9.0)
[2019-03-30 15:03] LABS: Bacteria/HPF 1+ HPF (None Seen)
[2019-03-30 15:18] LABS: Pathc Cast-AUWi Flag 392.94 (0-2.49); Yeast-AUWi Flag 436.6 (0-25.0)
[2019-03-30 15:18] LABS: ALT (SGPT) 27 U/L (8-55); AST (SGOT) 25 U/L (5-34); Albumin 3.4 g/dL (3.4-4.8); Alkaline Phosphatase 123 U/L (40-150); Anion Gap 16 mmol/L (10-20); BUN (Urea Nitrogen) 27 mg/dL (9.8-20.1); Bilirubin, Total 0.5 mg/dL (0.2-1.2); Calc. Creatinine Clearance 0 mL/min (70-130); Calcium 9.2 mg/dL (7.8-10.44); Carbon Dioxide 28 mmol/L (23-31); Chloride 97 mmol/L (98-107); Estimated GFR-MDRD 53; Globulin 4.5 g/dL (2.4-3.5); Glucose 111 mg/dL (83-110); Lipase 77 U/L (8-78); Potassium 4.3 mmol/L (3.5-5.1); Protein, Total 7.9 g/dL (6.0-8.3); Sodium 137 mmol/L (136-145)
--- NOTE | 2019-03-30 15:20 | CT ---
CT BRAIN WITHOUT CONTRAST: HISTORY: Altered mental status. COMPARISON: 06/08/2018 FINDINGS: There are changes of cortical atrophy and chronic small vessel ischemic disease. The ventricular siz e is appropriate, and the basilar cisterns are patent. No evidence of acute infarct, hemorrhage, mid line shift, or abnormal extraaxial fluid collections is seen. The bony calvarium is intact. There i s mucosal disease in the right sphenoid sinus. IMPRESSION: No CT evidence of acute intracranial process. POS: OFF
[2019-03-30 15:25] LABS: RBC/HPF GREATER THAN 50-TNTC HPF (0-3)
[2019-03-30 15:26] LABS: Hyaline Casts/LPF NONE SEEN LPF (0-3 Hyaline); Other Casts/LPF None Seen LPF (0-3 Hyaline); Trichomonas/HPF None Seen HPF (None Seen); Yeast-All Forms None Seen HPF (None Seen)
[2019-03-30] MEDS ORDERED: cefTRIAXone\\ROCEPHIN 1 GM VIAL ONE (15:53)
[2019-03-30] MEDS ORDERED: Acetaminophen 650 MG Suppository PR PRN (19:04)
[2019-03-30] MEDS ORDERED: Acetaminophen 325 MG TAB PO PRN ×2 (19:04→19:10)
[2019-03-30] MEDS ORDERED: Senokot S 8.6-50 MG TAB PO PRN (19:04)
[2019-03-30] MEDS ORDERED: Ondansetron PF 4 MG/2 ML Vial IVP PRN (19:10)
[2019-03-30] MEDS ORDERED: Ondansetron ODT 4 MG TAB SL PRN (19:10)
[2019-03-30] MEDS ORDERED: Sodium Chloride 0.9% 1,000 ML IV SCH (19:10)
[2019-03-30] MEDS ORDERED: HYDROcodone/Acetaminophen 5/325 mg Tablet PO PRN ×2 (19:10)
[2019-03-30 20:14] VITALS: BMI 37.3
[2019-03-30] MEDS: Sodium Chloride 0.9% 1,000 ML IV SCH (20:31)
[2019-03-30] MEDS ORDERED: Famotidine 20 MG TAB PO SCH (21:00)
[2019-03-30] MEDS ORDERED: risperiDONE 1 MG TAB PO SCH (22:45)
[2019-03-30] MEDS ORDERED: Pregabalin 50 MG CAP PO SCH (22:45)
[2019-03-30] MEDS ORDERED: Metoprolol Tartrate 50 MG TAB PO SCH (22:45)
[2019-03-30] MEDS ORDERED: Hydroxychloroquine Sulfate 200 MG TAB PO SCH (22:45)
[2019-03-31] MEDS ORDERED: HumaLOG 300 UNITS/3 ML VIAL SC PRN ×2 (05:36)
[2019-03-31] MEDS ORDERED: Dextrose 5% in Water 1,000 ML IV PRN (05:36)
[2019-03-31] MEDS ORDERED: Dextrose 50% Abboject 50 ML SYRINGE SLOW IVP PRN (05:36)
--- NOTE | 2019-03-31 06:52 | HP ---
REASON FOR ADMISSION: Altered mental status. HISTORY OF PRESENT ILLNESS: Ms. Velasco is a pleasant 73-year-old woman with underlying dementia, who was brought in from [place] due to reports of altered mental status at 7:00 am this morning. The patient apparently was confused, though she does have dementia at baseline. According to the emergency department note, she had been experiencing confusion for approximately 1 week. It appears her daughter has been admitted due to psychiatric issues and this may have contributed to the patient's acute altered mental status. She is known however to have frequent urinary tract infections and urinalysis done was notable for turbid red urine with 300 of protein, positive nitrites, large leukocyte esterase, greater than 50 red blood cells and white blood cells, and 1+ bacteria. The patient has been afebrile. She has no complaints at present and is pleasantly demented. Difficult to assess what her baseline is as family is not at bedside. She appears to be in no distress. The patient has been initiated on IV antibiotics with Rocephin. PAST MEDICAL HISTORY: 1. Type 2 diabetes. 2. Hypertension. 3. Generalized weakness. 4. CKD, stage 4. 5. Lupus. 6. Coronary artery disease. 7. Dementia. 8. Anxiety. 9. Depression. PAST SURGICAL HISTORY: 1. Tonsillectomy. 2. Cardiac stent placement. SOCIAL HISTORY: The patient denies any alcohol use or illicit drug use. No smoking. ALLERGIES: NO KNOWN DRUG ALLERGIES. CURRENT MEDICATIONS: 1. Losartan. 2. Potassium chloride. 3. Metoprolol tartrate. 4. Azathioprine. 5. Prednisone. 6. Furosemide. 7. Risperidone. 8. Nuedexta. 9. Doxepin. 10. Folic acid. 11. Ranitidine. 12. Lyrica. 13. Levaquin. PHYSICAL EXAMINATION: GENERAL: The patient appears well developed, well nourished, and is in no acute distress. VITAL SIGNS: Temperature 98.1, pulse 82, respirations 18, O2 saturation 95% on room air, blood pressure 167/102. HEENT: Normocephalic and atraumatic. Pupils are equal, round, and reactive to light. Sclerae without icterus. Extraocular movements normal. No nystagmus. NECK: Supple. LUNGS: Clear to auscultation bilaterally without wheezes, rales, or rhonchi. CARDIAC: Regular rate and rhythm. ABDOMEN: Soft, nontender, nondistended. Normoactive bowel sounds present. No guarding or rigidity. EXTREMITIES: Without calf pain or swelling. No edema. SKIN: Without rash or jaundice. NEUROLOGIC: The patient is alert, but confused, unclear if she is at her baseline. Unable to say her name and responds that her name is Krissy Gonzales. Also responds that it is 1941. When I asked where she is, she did say she did not know. Her facial movements are normal. Sensation as per patient is intact on the face and in all extremities. Power is 5/5 in all limbs. She is able to easily follow commands. Normal straight leg raise. No focal deficits. LABORATORY DATA: White blood count 5.7, hemoglobin 13.8, platelets 129. Sodium 137, potassium 4.3, BUN 27, creatinine 1.02, GFR 53, glucose 111, calcium 9.2, total bilirubin 0.5, AST 25, ALT 27, alkaline phosphatase 123, ammonia 37. Troponin I negative. Albumin 3.4, lipase 77. Urinalysis, red color, turbid urine, protein 300, trace ketones, large blood, positive nitrites, large leukocyte esterase, greater than 50 red blood cells, greater than 50 white blood cells, squamous epithelial cells 7-10, 1+ bacteria. IMAGING DATA: CT brain showed no CT evidence of acute intracranial process. IMPRESSION AND PLAN: Ms. Velasco is a very pleasantly demented 73-year-old woman with reported confusion, who has undergone investigations including CT of the head, which is negative and urinalysis which did show evidence of a UTI. Her white count is normal and she is not hypotensive. No signs of sepsis. She has been started on IV ceftriaxone. Urine culture pending. She has had cultures positive for Klebsiella pneumoniae in the past as well as Proteus mirabilis. The patient is currently on ceftriaxone. She is currently without complaints. We will resume home medications including antihypertensives and we will monitor her blood pressure. We are awaiting confirmation of home medications. We will reconcile once verified. The patient with known history of type 2 diabetes mellitus. Therefore, we will monitor glucose and initiate insulin sliding scale. Gastrointestinal prophylaxis with famotidine 20 mg p.o. b.i.d. DVT prophylaxis with mechanical SCDs. Unaware of code status at present. The patient's case was discussed with Dr. Best, who agrees with plan of care as described above. Job ID: [id number]
[2019-03-31] MEDS: Metoprolol Tartrate 50 MG TAB PO SCH ×3 (07:59→21:58)
[2019-03-31] MEDS: Famotidine 20 MG TAB PO SCH ×3 (07:59→21:52)
[2019-03-31] MEDS: Escitalopram Oxalate 20 mg Tablet PO SCH ×2 (07:59→16:42)
[2019-03-31] MEDS: predniSONE 20 MG TAB PO SCH ×2 (07:59→16:42)
[2019-03-31] MEDS: Alogliptin 25 MG TAB PO SCH ×2 (07:59→16:42)
[2019-03-31] MEDS: Folic Acid 1 MG TAB PO SCH ×2 (07:59→16:42)
[2019-03-31] MEDS: Hydroxychloroquine Sulfate 200 MG TAB PO SCH ×3 (07:59→21:51)
[2019-03-31] MEDS: Bupropion 150 MG SR TAB PO SCH ×2 (08:00→16:42)
[2019-03-31 08:11] LABS: Anion Gap 14 mmol/L (10-20); BUN (Urea Nitrogen) 26 mg/dL (9.8-20.1); Calc. Creatinine Clearance 95 mL/min (70-130); Calcium 8.5 mg/dL (7.8-10.44); Carbon Dioxide 23 mmol/L (23-31); Chloride 106 mmol/L (98-107); Estimated GFR-MDRD 68; Glucose 110 mg/dL (83-110); Potassium 3.9 mmol/L (3.5-5.1); Sodium 139 mmol/L (136-145)
[2019-03-31 08:20] LABS: #Eosinphils 0.2 thou/uL (0.0-0.7); #Lymphocytes 2.4 thou/uL (1.20-3.40); #Monocytes 0.7 thou/uL (0.11-0.59); #Neutrophils 2.9 thou/uL (1.40-6.50); %Basophils 0.5 % (0.0-1.0); %Eosinophils 2.9 % (0.0-10.0); %Lymphocytes 38.7 % (21.0-51.0); %Monocytes 11.2 % (0.0-10.0); %Neutrophils 46.7 % (42.0-75.0); Hemoglobin 12.8 g/dL (12.0-16.0); Mean Corpuscular HGB CONC 33.6 g/dL (32.0-36.0); Mean Corpuscular Hemoglobin 29.6 pg (27.0-31.0); Mean Corpuscular Volume 88.1 fL (78.0-98.0); Mean Platelet Volume 8.7 fL (7.4-10.4); Platelet Count 124 thou/uL (130-400); RBC Distribution Width 18.5 % (11.5-14.5); Red Blood Cell (RBC) Count 4.33 mill/uL (4.20-5.40); White Blood Cell (WBC) Count 6.2 thou/uL (4.8-10.8)
[2019-03-31] MEDS ORDERED: Non-Formulary Item 1 EACH (Levemir Flexpen [Levemir Flexpen] 26 UNIT) SC SCH (09:00)
[2019-03-31] MEDS ORDERED: Non-Formulary Item 1 EACH (Linagliptin [Tradjenta] 5 MG) PO SCH (09:00)
[2019-03-31] MEDS: Insulin Glargine 26 UNITS in Pre-Filled Syringe 1 EACH SC SCH (09:34)
[2019-03-31] MEDS: Sodium Chloride 0.9% 1,000 ML IV SCH (15:18)
[2019-03-31] MEDS: cefTRIAXone\\ROCEPHIN 1 GM in Sodium Chloride 0.9% 100 ML IVPB SCH (15:18)
--- NOTE | 2019-03-31 16:11 | PDOC.PN ---
- Subjective Encounter Start Date: 03/31/19 Encounter Start Time: 16:09 Patient lying in bed, she appears to be at her baseline and denies any complaints. No acute distress noted. Urine culture showing staph species. - Objective MAR Reviewed: Yes Vital Signs & Weight: Vital Signs (12 hours) Temp Pulse Resp BP Pulse Ox 03/31/19 12:00 98.2 F 89 16 172/79 H 99 03/31/19 08:00 98.7 F 90 14 163/84 H 95 03/31/19 06:29 98.6 F 86 18 158/79 H 96 Weight Weight 217 lb 5 oz I&O: 03/30/19 03/31/19 04/01/19 06:59 06:59 06:59 Intake Total 534 Balance 534 Result Diagrams: 03/31/19 07:35 03/31/19 07:35 Additional Labs: Accuchecks 03/31/19 03/31/19 03/30/19 11:55 06:19 19:44 POC Glucose 123 H 113 H 148 H Radiology Reviewed by me: Yes Phys Exam - Physical Examination Constitutional: NAD HEENT: moist MMs, oral pharynx no lesions Neck: supple Respiratory: no wheezing, clear to auscultation bilateral Cardiovascular: RRR Gastrointestinal: soft, non-tender, positive bowel sounds Musculoskeletal: pulses present Neurological: non-focal, moves all 4 limbs Lymphatic: no nodes Psychiatric: normal affect Deviation from normal: A&Ox2 Skin: cap refill <2 seconds Dx/Plan (1) UTI (urinary tract infection) Status: Acute (2) Encephalopathy acute Code(s): G93.40 - ENCEPHALOPATHY, UNSPECIFIED Status: Acute Comment: autoimmune encephalopathy, improving (3) General weakness Code(s): R53.1 - WEAKNESS Status: Acute (4) Hypertension Code(s): I10 - ESSENTIAL (PRIMARY) HYPERTENSION Status: Chronic Qualifiers: Hypertension type: essential hypertension Qualified Code(s): I10 - Essential (primary) hypertension (5) Type 2 diabetes mellitus Status: Chronic Qualifiers: Diabetes mellitus complication status: with unspecified complications Comment: - Plan cont current plan of care, continue antibiotics * Continue IV abx for now, await further culture results * Continue other home medications * Patient showing improvement * Continue symptomatic and conservative care * Hopeful for discharge on the next 24-48 hours
[2019-03-31] MEDS ORDERED: Ziprasidone 20 MG VIAL IM PRN (16:43)
[2019-03-31] MEDS ORDERED: Sterile Water 10 ML VIAL FS PRN (16:46)
[2019-03-31] MEDS: Pregabalin 50 MG CAP PO SCH (21:52)
[2019-03-31] MEDS: Dextromethorphan Hbr/Quinidine CAPSULE PO SCH (21:58)
[2019-03-31] MEDS: Polyethylene Glycol 3350 17 GM Packet PO SCH (21:58)
[2019-03-31] MEDS: Doxepin HCl 25 MG CAP PO SCH (21:58)
[2019-03-31] MEDS: risperiDONE 1 MG TAB PO SCH (21:59)
[2019-04-01] MEDS: Alogliptin 25 MG TAB PO SCH (08:44)
[2019-04-01] MEDS: Escitalopram Oxalate 20 mg Tablet PO SCH (08:44)
[2019-04-01] MEDS: Hydroxychloroquine Sulfate 200 MG TAB PO SCH ×2 (08:44→22:11)
[2019-04-01] MEDS: Famotidine 20 MG TAB PO SCH ×2 (08:44→22:10)
[2019-04-01] MEDS: Metoprolol Tartrate 50 MG TAB PO SCH ×2 (08:44→22:11)
[2019-04-01] MEDS: Folic Acid 1 MG TAB PO SCH (08:44)
[2019-04-01] MEDS: predniSONE 20 MG TAB PO SCH (08:44)
[2019-04-01] MEDS: Insulin Glargine 26 UNITS in Pre-Filled Syringe 1 EACH SC SCH (08:46)
[2019-04-01] MEDS: Bupropion 150 MG SR TAB PO SCH (08:46)
[2019-04-01] MEDS: Sodium Chloride 0.9% 1,000 ML IV SCH (09:52)
[2019-04-01] MEDS ORDERED: Nystatin Powder 15 GM BOT TOP PRN (17:08)
[2019-04-01] MEDS: cefTRIAXone\\ROCEPHIN 1 GM in Sodium Chloride 0.9% 100 ML IVPB SCH (17:09)
--- NOTE | 2019-04-01 18:06 | PDOC.PN ---
- Subjective Encounter Start Date: 04/01/19 Encounter Start Time: 17:50 Subjective: f/u for AMS/encephalopathy suspected due to UTI showing MRSA and -: strep spp. Previously on Rocephin but lost IV access. Remains confused -: per nursing. - Objective MAR Reviewed: Yes Vital Signs & Weight: Vital Signs (12 hours) Temp Pulse Resp BP Pulse Ox 04/01/19 13:06 98 F 80 20 154/87 H 99 04/01/19 08:00 98.0 F 80 20 161/87 H 97 Weight Weight 217 lb 5 oz I&O: 03/31/19 04/01/19 04/02/19 06:59 06:59 06:59 Intake Total 534 1300 720 Balance 534 1300 720 Result Diagrams: 03/31/19 07:35 03/31/19 07:35 Additional Labs: Accuchecks 04/01/19 04/01/19 04/01/19 16:41 11:05 04:49 POC Glucose 137 H 142 H 113 H 03/31/19 21:08 POC Glucose 116 H Microbiology 03/22/19 13:56 Urine Straight Catheter Urine Culture - Final NO GROWTH AT 48 HOURS 03/30/19 14:42 Venous blood - Right Hand Blood Culture - Preliminary NO GROWTH AT 48 HOURS 03/30/19 14:42 Venous blood - Left Arm Blood Culture - Preliminary NO GROWTH AT 48 HOURS 03/30/19 14:24 Urine Straight Catheter Urine Culture - Preliminary Methicillin resistant S.aureus Non-Hemolytic Streptococcus Laboratory Tests 03/30/19 03/30/19 03/30/19 14:19 14:19 14:42 Plt Count 129 L BUN 27 H Creatinine 1.02 Ammonia 37 Lipase 77 Radiology Reviewed by me: Yes (CT brain - negative) Phys Exam - Physical Examination Constitutional: NAD HEENT: PERRLA, sclera anicteric, oral pharynx no lesions Neck: no nodes, no JVD, supple, full ROM Respiratory: no wheezing, no rales, no rhonchi, clear to auscultation bilateral S1, S2 Cardiovascular: RRR, no significant murmur, no rub, gallop Gastrointestinal: soft, non-tender, no distention, positive bowel sounds Musculoskeletal: no edema, pulses present Neurological: normal sensation, moves all 4 limbs Skin: normal turgor, cap refill <2 seconds Dx/Plan (1) UTI (urinary tract infection) Status: Acute Comment: MRSA/Strep spp noted, start Bactrim DS BID, consider consultation with Urology (2) Encephalopathy acute Code(s): G93.40 - ENCEPHALOPATHY, UNSPECIFIED Status: Acute Comment: autoimmune encephalopathy suspected, increase Prednisone 40mg daily (3) General weakness Code(s): R53.1 - WEAKNESS Status: Chronic Comment: PT evaluation for functional assessment (4) Hypertension Code(s): I10 - ESSENTIAL (PRIMARY) HYPERTENSION Status: Chronic Qualifiers: Hypertension type: essential hypertension Qualified Code(s): I10 - Essential (primary) hypertension Comment: Resume home BP regimen, serial monitoring (5) SLE (systemic lupus erythematosus) Code(s): M32.9 - SYSTEMIC LUPUS ERYTHEMATOSUS, UNSPECIFIED Status: Chronic Comment: Increase Prednisone 40mg daily, Plaquenil 200mg BID - Plan continue antibiotics, PT/OT, social insurance administrator Stable currently -: Start Bactrim DS po BID -: Increase Prednisone 40mg daily -: PT evaluation for functional assessment -: AM lab: BMP * .
[2019-04-01] MEDS ORDERED: predniSONE 20 MG TAB PO SCH (18:15)
[2019-04-01] MEDS ORDERED: Sulfameth/Trimethoprim DS 800-160mg TAB PO SCH (21:00)
[2019-04-01] MEDS: Doxepin HCl 25 MG CAP PO SCH (22:09)
[2019-04-01] MEDS: Pregabalin 50 MG CAP PO SCH (22:10)
[2019-04-01] MEDS: Dextromethorphan Hbr/Quinidine CAPSULE PO SCH (22:10)
[2019-04-01] MEDS: risperiDONE 1 MG TAB PO SCH (22:10)
[2019-04-01] MEDS: Polyethylene Glycol 3350 17 GM Packet PO SCH (23:02)
[2019-04-01 23:20] LABS: #Basophils 0.1 thou/uL (0.0-0.2); #Eosinphils 0.1 thou/uL (0.0-0.7); #Lymphocytes 2.7 thou/uL (1.20-3.40); #Monocytes 0.6 thou/uL (0.11-0.59); #Neutrophils 2.5 thou/uL (1.40-6.50); %Basophils 0.9 % (0.0-1.0); %Eosinophils 1.6 % (0.0-10.0); %Lymphocytes 45.2 % (21.0-51.0); %Monocytes 10.2 % (0.0-10.0); %Neutrophils 42.1 % (42.0-75.0); Hemoglobin 13.5 g/dL (12.0-16.0); Mean Corpuscular HGB CONC 34.4 g/dL (32.0-36.0); Mean Corpuscular Hemoglobin 30.5 pg (27.0-31.0); Mean Corpuscular Volume 88.4 fL (78.0-98.0); Platelet Count 119 thou/uL (130-400); RBC Distribution Width 18.3 % (11.5-14.5); Red Blood Cell (RBC) Count 4.44 mill/uL (4.20-5.40)
[2019-04-01] MEDS ORDERED: Vancomycin HCl 1.5 GM in Sodium Chloride 0.9% 250 ML 300 ML IVPB SCH (23:30)
[2019-04-01 23:36] LABS: Lactic Acid 1.7 mmol/L (0.5-2.2)
[2019-04-01 23:40] LABS: Albumin 3.1 g/dL (3.4-4.8); Anion Gap 11 mmol/L (10-20); BUN (Urea Nitrogen) 16 mg/dL (9.8-20.1); BUN/Creatinine Ratio 15.69; Calc. Creatinine Clearance 78 mL/min (70-130); Calcium 8.5 mg/dL (7.8-10.44); Carbon Dioxide 22 mmol/L (23-31); Chloride 103 mmol/L (98-107); Estimated GFR-MDRD 53; Glucose 124 mg/dL (83-110); Phosphorus 2.1 mg/dL (2.3-4.7); Potassium 4.1 mmol/L (3.5-5.1); Sodium 132 mmol/L (136-145)
[2019-04-02] MEDS: Haloperidol Lactate 5 MG/ML VIAL SLOW IVP PRN ×3 (02:58→23:58)
[2019-04-02] MEDS: Sodium Chloride 0.9% 1,000 ML IV SCH ×2 (03:58→20:01)
[2019-04-02 06:49] LABS: Anion Gap 14 mmol/L (10-20); BUN (Urea Nitrogen) 16 mg/dL (9.8-20.1); Calc. Creatinine Clearance 91 mL/min (70-130); Calcium 8.6 mg/dL (7.8-10.44); Carbon Dioxide 22 mmol/L (23-31); Chloride 102 mmol/L (98-107); Estimated GFR-MDRD 64; Glucose 127 mg/dL (83-110); Potassium 4.2 mmol/L (3.5-5.1); Sodium 134 mmol/L (136-145)
[2019-04-02] MEDS: Bupropion 150 MG SR TAB PO SCH (08:30)
[2019-04-02] MEDS: Metoprolol Tartrate 50 MG TAB PO SCH ×2 (08:31→20:03)
[2019-04-02] MEDS: Escitalopram Oxalate 20 mg Tablet PO SCH (08:31)
[2019-04-02] MEDS: Alogliptin 25 MG TAB PO SCH (08:31)
[2019-04-02] MEDS: Hydroxychloroquine Sulfate 200 MG TAB PO SCH ×2 (08:31→19:59)
[2019-04-02] MEDS: Folic Acid 1 MG TAB PO SCH (08:32)
[2019-04-02] MEDS: Insulin Glargine 26 UNITS in Pre-Filled Syringe 1 EACH SC SCH (08:32)
[2019-04-02] MEDS: Famotidine 20 MG TAB PO SCH ×2 (08:32→19:59)
[2019-04-02] MEDS: predniSONE 20 MG TAB PO SCH (08:33)
--- NOTE | 2019-04-02 11:49 | PDOC.PN ---
- Subjective Encounter Start Date: 04/02/19 Encounter Start Time: 10:00 -: old records requested/rev she was not able to sleep last night, this morning she is sleeping, daughter bedside - Objective MAR Reviewed: Yes Vital Signs & Weight: Vital Signs (12 hours) Temp Pulse Resp BP Pulse Ox 04/02/19 08:09 97.5 F L 67 22 H 122/76 96 04/02/19 08:00 96 04/02/19 05:14 158/81 H Weight Weight 217 lb 5 oz I&O: 04/01/19 04/02/19 04/03/19 06:59 06:59 06:59 Intake Total 1300 1620 360 Balance 1300 1620 360 Result Diagrams: 04/01/19 23:09 04/02/19 05:00 Additional Labs: Accuchecks 04/02/19 04/01/19 04/01/19 05:36 21:18 16:41 POC Glucose 145 H 129 H 137 H 04/01/19 11:05 POC Glucose 142 H Phys Exam - Physical Examination Constitutional: NAD HEENT: PERRLA, sclera anicteric Neck: no JVD, supple Respiratory: no wheezing, no rales, no rhonchi Cardiovascular: RRR, no significant murmur, no rub Gastrointestinal: soft, non-tender, no distention, positive bowel sounds Musculoskeletal: no edema, pulses present Lymphatic: no nodes Skin: no rash, normal turgor Dx/Plan (1) Encephalopathy acute Code(s): G93.40 - ENCEPHALOPATHY, UNSPECIFIED Status: Acute (2) Thrombocytopenia Code(s): D69.6 - THROMBOCYTOPENIA, UNSPECIFIED Status: Acute (3) UTI (urinary tract infection) Status: Acute Comment: MRSA/Strep spp noted, start Bactrim DS BID, consider consultation with Urology (4) Weakness generalized Code(s): R53.1 - WEAKNESS Status: Acute (5) Hypertension Code(s): I10 - ESSENTIAL (PRIMARY) HYPERTENSION Status: Chronic Qualifiers: Hypertension type: essential hypertension Qualified Code(s): I10 - Essential (primary) hypertension Comment: Resume home BP regimen, serial monitoring (6) PEG (percutaneous endoscopic gastrostomy) status Code(s): Z93.1 - GASTROSTOMY STATUS Status: Chronic Comment: (7) SLE (systemic lupus erythematosus) Code(s): M32.9 - SYSTEMIC LUPUS ERYTHEMATOSUS, UNSPECIFIED Status: Chronic Comment: (8) Type 2 diabetes mellitus Status: Chronic Qualifiers: Diabetes mellitus complication status: with unspecified complications Comment: - Plan cont current plan of care, plan discussed w/ family, 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 * not ready for discharge, will go to [facility] Review of Systems - Review of Systems Other: unable to review due to pt sleeping but addressed with daughter bedside - Medications/Allergies Allergies/Adverse Reactions: Allergies Allergy/AdvReac Type Severity Reaction Status Date / Time No Known Drug Allergies Allergy Verified 03/22/19 14:36 Medications: Current Medications Acetaminophen (Tylenol) 650 mg PO Q4H PRN PRN Reason: Headache/Fever/Mild Pain (1-3) Acetaminophen (Tylenol) 650 mg LA Q4H PRN PRN Reason: Headache/Fever/Mild Pain (1-3) Alogliptin Benzoate (Alogliptin) 25 mg PO DAILY [facility] Last Admin: 04/02/19 08:31 Dose: 25 mg Bupropion HCl (Wellbutrin Sr) 300 mg PO DAILY [facility] Last Admin: 04/02/19 08:30 Dose: 300 mg Dextromethorphan/Quinidine (Nuedexta 20-10 Mg Capsule) 1 cap PO HS [facility] Last Admin: 04/01/19 22:10 Dose: 1 cap Dextrose/Water (Dextrose 50%) 25 gm SLOW IVP PRN PRN PRN Reason: Hypoglycemia Doxepin HCl (Sinequan) 50 mg PO HS [facility] Last Admin: 04/01/19 22:09 Dose: 50 mg Escitalopram Oxalate (Lexapro) 20 mg PO DAILY [facility] Last Admin: 04/02/19 08:31 Dose: 20 mg Famotidine (Pepcid) 20 mg PO BID [facility] Last Admin: 04/02/19 08:32 Dose: 20 mg Folic Acid (Folvite) 1 mg PO DAILY [facility] Last Admin: 04/02/19 08:32 Dose: 1 mg Glucagon (Glucagon) 1 mg IM PRN PRN PRN Reason: Hypoglycemia Haloperidol Lactate (Haldol) 2 mg SLOW IVP Q4H PRN PRN Reason: Agitation Last Admin: 04/02/19 02:58 Dose: 2 mg Hydroxychloroquine Sulfate (Plaquenil) 200 mg PO BID [facility] Last Admin: 04/02/19 08:31 Dose: 200 mg Sodium Chloride (Normal Saline 0.9%) 1,000 mls @ 55 mls/hr IV .[id number] [facility] Last Admin: 04/02/19 03:58 Dose: Not Given Insulin Glargine 26 units/ (Miscellaneous Medication) 0.26 mls @ 0 mls/hr SC DAILY [facility] Last Admin: 04/02/19 08:32 Dose: 0.26 mls Dextrose/Water (D5w) 1,000 mls @ 0 mls/hr IV .Q0M PRN PRN Reason: Hypoglycemia Vancomycin HCl 1.25 gm/ Sodium (Chloride) 250 mls @ 166.667 mls/hr IVPB Q18H [facility] Insulin Human Lispro (Humalog) 0 units SC .MODERATE SLIDING SC PRN PRN Reason: Moderate Correctional Scale Insulin Human Lispro (Humalog) 0 units SC .BEDTIME SLIDING SC PRN PRN Reason: Bedtime Correctional Scale Metoprolol Tartrate (Lopressor) 50 mg PO BID [facility] Last Admin: 04/02/19 08:31 Dose: 50 mg Miscellaneous Medication (Pharmacy To Dose) 1 each IVPB PRN PRN PRN Reason: Pharmacy to dose Nystatin (Mycostatin Powder) 0 gm TOP DAILYPRN PRN PRN Reason: Topical Irritations Cabozantinib S- (Malate [Cabometyx]) 0 each PO DAILY [facility] Polyethylene Glycol (Miralax) 17 gm PO [facility] Last Admin: 04/01/19 23:02 Dose: Not Given Prednisone (Prednisone) 10 mg PO QAM-WM [facility] Last Admin: 04/01/19 08:44 Dose: 10 mg Prednisone (Prednisone) 40 mg PO QAM-WM [facility] Stop: 04/03/19 08:01 Last Admin: 04/02/19 08:33 Dose: 40 mg Pregabalin (Lyrica) 50 mg PO [facility] Last Admin: 04/01/19 22:10 Dose: 50 mg Risperidone (Risperidone) 1 mg PO [facility] Last Admin: 04/01/19 22:10 Dose: 1 mg Senna/Docusate Sodium (Senokot S) 2 tab PO BID PRN PRN Reason: Constipation Sodium Chloride (Flush - Normal Saline) 10 ml IVF Q12HR PRN PRN Reason: Saline Flush Sodium Chloride (Flush - Normal Saline) 10 ml IVF PRN PRN PRN Reason: Saline Flush Sterile Water (Water For Injection) 1.2 ml FS PRN PRN PRN Reason: RECONSTITUTION
[2019-04-02] MEDS: [UNRECOGNIZED DRUG - OTHER] PO SCH ×3 (12:43→21:06)
[2019-04-02 15:06] LABS: Bilirubin Negative (Negative); Blood, Urine Large (Negative); Clarity CLOUDY (Clear); Glucose, Urine (Dipstick) Negative (Negative); Leukocyte Large (Negative); Nitrite Negative (Negative); Protein, Urine (Dipstick) 300 mg/dL (Neg-Trace); Urobilinogen 0.2 mg/dL (0.2-1.0); pH, Urine 6.5 (5.0-9.0)
[2019-04-02 15:08] LABS: Bacteria/HPF None Seen HPF (None Seen); Squamous Epithelial 0-3 HPF (0-3)
[2019-04-02 15:11] LABS: Pathc Cast-AUWi Flag 5.16 (0-2.49); Yeast-AUWi Flag 145.8 (0-25.0)
[2019-04-02 15:22] LABS: RBC/HPF 21-50 HPF (0-3); Yeast-All Forms None Seen HPF (None Seen)
[2019-04-02 15:23] LABS: Hyaline Casts/LPF 0-3 HYALINE CAST LPF (0-3 Hyaline); Other Casts/LPF None Seen LPF (0-3 Hyaline)
[2019-04-02] MEDS: Doxepin HCl 25 MG CAP PO SCH (19:59)
[2019-04-02] MEDS: Dextromethorphan Hbr/Quinidine CAPSULE PO SCH (19:59)
[2019-04-02] MEDS: Nitrofurantoin Monohyd/M-Cryst 100 MG CAP PO SCH (19:59)
[2019-04-02] MEDS: risperiDONE 1 MG TAB PO SCH (20:00)
[2019-04-02] MEDS: Polyethylene Glycol 3350 17 GM Packet PO SCH (20:01)
[2019-04-02] MEDS: Pregabalin 50 MG CAP PO SCH (20:01)
--- NOTE | 2019-04-02 21:27 | CON ---
DATE OF CONSULTATION: 04/02/2019 PRIMARY CARE PHYSICIAN: Jacqueline Persaud MD REASON FOR CONSULT: UTI. HISTORY OF PRESENT ILLNESS: Ms. Velasco is a 73-year-old female with history of dementia, diabetes, coronary artery disease, and lupus, initially seen as an inpatient consultation back in December 2018. She presented with initially Klebsiella urosepsis, CT demonstrated left renal pelvic ureteral stone versus hyperdensity. Unfortunately, subsequent workup demonstrates metastatic left renal cell carcinoma, biopsy of the renal pelvic mass consistent with metastatic disease of renal cell. She has been seen by Medical Oncology, Dr. Carcamo, has been on cabozantinib. She was deemed a poor surgical candidate for cytoreductive nephrectomy. She is scheduled for interval ureteral stent exchange due to presenting mass causing hydronephrosis of the left kidney this Tuesday. Her preop urine culture, straight cath is negative. She presented to [facility] this Tuesday due to mental status changes, subsequently found that urine culture is positive. Review of records demonstrated as a contaminated specimen growing out MRSA and component of enterococcus. She has been afebrile. She is at her baseline dementia, oriented to herself. Answers questions appropriately. Denies discomfort. PAST MEDICAL HISTORY: Systemic lupus, anemia, metabolic encephalopathy, chronic kidney disease, type 2 diabetes, hyperkalemia, dementia, anxiety, chronic pain, hyperlipidemia, major depressive disorder, hypertension, coronary artery disease with inpatient cardiology consult in chart, December 2018, history of hepatitis B, history of metastatic clear cell renal cell carcinoma, followed by Medical Oncology, on cabozantinib. PAST SURGICAL HISTORY: 1. T and A. 2. Cardiac cath, coronary artery stent placement with EF 70%, September 2017. 3. History of PEG tube. 4. History of left retrograde 6 x 24 stent, January 10, 2019. 5. Cysto, left retrograde stent exchange, 6 x 24, flexible ureteroscopy, biopsy of renal pelvic ureteral mass, January 17, 2019. 6. Percutaneous left renal mass biopsy, January 19, 2019. 7. Ultrasound guided pancreatic biopsy at [facility], January 25, negative for pancreatic malignancy. SOCIAL HISTORY: She is a intermediate patient, , has extended family. ALLERGIES: NO KNOWN DRUG ALLERGIES. CURRENT MEDICATIONS: Include; 1. Tylenol. 2. Alogliptin. 3. Wellbutrin. 4. Cabozantinib. 5. Nuedexta. 6. Sinequan. 7. Lexapro. 8. Pepcid. 9. Folic acid. 10. Glucagon. 11. Haldol. 12. Plaquenil. 13. Insulin. 14. Macrobid 100 mg one p.o. b.i.d. 15. Nystatin. 16. Prednisone. 17. Lyrica. 18. Risperidone. 19. IV vancomycin, previously on vancomycin, last dose last night at 10 p.m., currently transitioned to Macrobid. PHYSICAL EXAMINATION: GENERAL: The patient is alert, oriented x2. VITAL SIGNS: Stable. She has been afebrile since admission, 69, 21, 100%, 169/ 89. I's and O's, she is incontinent. HEART: Regular. LUNGS: Clear. ABDOMEN: Morbidly obese. No rigidity. No rebound. : No significant discharge is appreciated. EXTREMITIES: No cyanosis, clubbing, or edema. NEUROLOGIC: No gross focal deficits. PSYCHIATRIC: Baseline dementia. PERTINENT LABORATORY DATA: White count 6, hemoglobin 13, platelet 119. Renal function, creatinine of 0.87. Sugars have been running 120s to 173. UA on admission demonstrates 300 protein, it is a contaminated specimen, 7-10 epithelials, 1+ bacteria, greater than 50 wbc's, rbc's, positive nitrites. Blood culture negative x2, March 30. March 30 urine culture, contaminated specimen, demonstrates MRSA and Enterococcus. March 22, 2019, preop urine culture, negative. CT of the brain, no acute process. IMPRESSION AND PLAN: Ms. eVlasco is a 73-year-old female with history of multiple comorbidities, diabetes, lupus, left hydronephrosis, previously with Klebsiella urosepsis. Workup demonstrates metastatic clear cell renal cell carcinoma involving the left kidney/left renal pelvis, multiple retroperitoneal pulmonary metastatic disease. She has been deemed a poor candidate for cytoreductive nephrectomy by Medical Oncology. She is undergoing ongoing immunotherapy, interval stent exchange this Tuesday. As she is admitted, I did discuss with hospitalist. She will remain in-house with appropriate antibiotic regimen and proceed with stent exchange. It is a contaminated specimen, straight cath UA C and S has been ordered. I have been attempting to get a renal scan on her which has been difficult to coordinate. We will order for in-house if possible. N.p.o. after midnight for surgery, Tuesday a.m. Job ID: [id number] MTDSalvatore
[2019-04-02] MEDS ORDERED: Vancomycin HCl 1.25 GM in Sodium Chloride 0.9% 250 ML 250 ML IVPB SCH (23:00)
[2019-04-03] MEDS: Haloperidol Lactate 5 MG/ML VIAL SLOW IVP PRN (04:25)
[2019-04-03] MEDS ORDERED: Clopidogrel Bisulfate 75 MG TAB ONE (09:59)
[2019-04-03] MEDS: Insulin Glargine 26 UNITS in Pre-Filled Syringe 1 EACH SC SCH (10:01)
[2019-04-03] MEDS: Hydroxychloroquine Sulfate 200 MG TAB PO SCH ×2 (10:13→21:56)
[2019-04-03] MEDS: Bupropion 150 MG SR TAB PO SCH (10:14)
[2019-04-03] MEDS: Metoprolol Tartrate 50 MG TAB PO SCH ×2 (10:14→21:56)
[2019-04-03] MEDS: Alogliptin 25 MG TAB PO SCH (10:14)
[2019-04-03] MEDS: [UNRECOGNIZED DRUG - OTHER] PO SCH (10:14)
[2019-04-03] MEDS: Famotidine 20 MG TAB PO SCH ×2 (10:14→21:56)
[2019-04-03] MEDS: Escitalopram Oxalate 20 mg Tablet PO SCH (10:14)
[2019-04-03] MEDS: Folic Acid 1 MG TAB PO SCH (10:14)
[2019-04-03] MEDS: Nitrofurantoin Monohyd/M-Cryst 100 MG CAP PO SCH ×2 (10:14→21:56)
[2019-04-03] MEDS: predniSONE 20 MG TAB PO SCH (10:14)
--- NOTE | 2019-04-03 11:38 | PDOC.PN ---
- Subjective Encounter Start Date: 04/03/19 Encounter Start Time: 10:30 pt is delirious, she pulled out victor today, she has mitten but chewing and not working well, no family bedside - Objective MAR Reviewed: Yes Vital Signs & Weight: Vital Signs (12 hours) Temp Pulse Resp BP BP Pulse Ox 04/03/19 08:07 97.5 F L 68 20 177/93 H 100 04/03/19 06:00 97.8 F 72 18 158/93 H 99 Weight Weight 217 lb 5 oz I&O: 04/02/19 04/03/19 04/04/19 06:59 06:59 06:59 Intake Total 1620 1379 Output Total 750 Balance 1620 629 Result Diagrams: 04/01/19 23:09 04/02/19 05:00 Additional Labs: Accuchecks 04/03/19 04/02/19 04/02/19 06:01 20:54 16:57 POC Glucose 130 H 142 H 207 H 04/02/19 12:04 POC Glucose 173 H Phys Exam - Physical Examination Constitutional: NAD HEENT: PERRLA, sclera anicteric Neck: no JVD, supple Respiratory: no wheezing, no rales, no rhonchi Cardiovascular: RRR, no significant murmur, no rub Gastrointestinal: soft, non-tender, no distention, positive bowel sounds Musculoskeletal: no edema, pulses present Neurological: moves all 4 limbs Psychiatric: normal affect Skin: no rash, normal turgor Dx/Plan (1) Encephalopathy acute Code(s): G93.40 - ENCEPHALOPATHY, UNSPECIFIED Status: Acute (2) Thrombocytopenia Code(s): D69.6 - THROMBOCYTOPENIA, UNSPECIFIED Status: Acute (3) UTI (urinary tract infection) Status: Acute Comment: MRSA/Strep spp noted, start Bactrim DS BID, consider consultation with Urology (4) Weakness generalized Code(s): R53.1 - WEAKNESS Status: Acute (5) Hypertension Code(s): I10 - ESSENTIAL (PRIMARY) HYPERTENSION Status: Chronic Qualifiers: Hypertension type: essential hypertension Qualified Code(s): I10 - Essential (primary) hypertension Comment: Resume home BP regimen, serial monitoring (6) PEG (percutaneous endoscopic gastrostomy) status Code(s): Z93.1 - GASTROSTOMY STATUS Status: Chronic Comment: (7) SLE (systemic lupus erythematosus) Code(s): M32.9 - SYSTEMIC LUPUS ERYTHEMATOSUS, UNSPECIFIED Status: Chronic Comment: (8) Type 2 diabetes mellitus Status: Chronic Qualifiers: Diabetes mellitus complication status: with unspecified complications Comment: - Plan cont current plan of care, continue antibiotics * continue macrobid based on C & S result * medication reviewed as below * symptomatic treatment * tomorrow urology planning to do procedure to remove stent. Review of Systems - Review of Systems Other: unable to review due to encephalopathy - Medications/Allergies Allergies/Adverse Reactions: Allergies Allergy/AdvReac Type Severity Reaction Status Date / Time No Known Drug Allergies Allergy Verified 03/22/19 14:36 Medications: Current Medications Acetaminophen (Tylenol) 650 mg PO Q4H PRN PRN Reason: Headache/Fever/Mild Pain (1-3) Acetaminophen (Tylenol) 650 mg AR Q4H PRN PRN Reason: Headache/Fever/Mild Pain (1-3) Alogliptin Benzoate (Alogliptin) 25 mg PO DAILY [facility] Last Admin: 04/03/19 10:14 Dose: 25 mg Bupropion HCl (Wellbutrin Sr) 300 mg PO DAILY [facility] Last Admin: 04/03/19 10:14 Dose: 300 mg Dextromethorphan/Quinidine (Nuedexta 20-10 Mg Capsule) 1 cap PO HS [facility] Last Admin: 04/02/19 19:59 Dose: 1 cap Dextrose/Water (Dextrose 50%) 25 gm SLOW IVP PRN PRN PRN Reason: Hypoglycemia Doxepin HCl (Sinequan) 50 mg PO HS [facility] Last Admin: 04/02/19 19:59 Dose: 50 mg Escitalopram Oxalate (Lexapro) 20 mg PO DAILY [facility] Last Admin: 04/03/19 10:14 Dose: 20 mg Famotidine (Pepcid) 20 mg PO BID [facility] Last Admin: 04/03/19 10:14 Dose: 20 mg Folic Acid (Folvite) 1 mg PO DAILY [facility] Last Admin: 04/03/19 10:14 Dose: 1 mg Glucagon (Glucagon) 1 mg IM PRN PRN PRN Reason: Hypoglycemia Haloperidol Lactate (Haldol) 2 mg SLOW IVP Q4H PRN PRN Reason: Agitation Last Admin: 04/03/19 04:25 Dose: 2 mg Hydroxychloroquine Sulfate (Plaquenil) 200 mg PO BID [facility] Last Admin: 04/03/19 10:13 Dose: 200 mg Sodium Chloride (Normal Saline 0.9%) 1,000 mls @ 55 mls/hr IV .[id number] [facility] Last Admin: 04/02/19 20:01 Dose: 1,000 mls Insulin Glargine 26 units/ (Miscellaneous Medication) 0.26 mls @ 0 mls/hr SC DAILY [facility] Last Admin: 04/03/19 10:01 Dose: 0.26 mls Dextrose/Water (D5w) 1,000 mls @ 0 mls/hr IV .Q0M PRN PRN Reason: Hypoglycemia Insulin Human Lispro (Humalog) 0 units SC .MODERATE SLIDING SC PRN PRN Reason: Moderate Correctional Scale Insulin Human Lispro (Humalog) 0 units SC .BEDTIME SLIDING SC PRN PRN Reason: Bedtime Correctional Scale Metoprolol Tartrate (Lopressor) 50 mg PO BID [facility] Last Admin: 04/03/19 10:14 Dose: 50 mg Nitrofurantoin Macrocrystals (Macrobid) 100 mg PO BID [facility] Stop: 04/07/19 21:01 Last Admin: 04/03/19 10:14 Dose: 100 mg Nystatin (Mycostatin Powder) 0 gm TOP DAILYPRN PRN PRN Reason: Topical Irritations Cabozantinib S- (Malate [Cabometyx]) 0 each PO DAILY [facility] Last Admin: 04/03/19 10:14 Dose: 1 each Polyethylene Glycol (Miralax) 17 gm PO [facility] Last Admin: 04/02/19 20:01 Dose: Not Given Prednisone (Prednisone) 10 mg PO QAM-WM [facility] Last Admin: 04/01/19 08:44 Dose: 10 mg Pregabalin (Lyrica) 50 mg PO [facility] Last Admin: 04/02/19 20:01 Dose: 50 mg Risperidone (Risperidone) 1 mg PO [facility] Last Admin: 04/02/19 20:00 Dose: 1 mg Senna/Docusate Sodium (Senokot S) 2 tab PO BID PRN PRN Reason: Constipation Sodium Chloride (Flush - Normal Saline) 10 ml IVF Q12HR PRN PRN Reason: Saline Flush Sodium Chloride (Flush - Normal Saline) 10 ml IVF PRN PRN PRN Reason: Saline Flush Sterile Water (Water For Injection) 1.2 ml FS PRN PRN PRN Reason: RECONSTITUTION
--- NOTE | 2019-04-03 14:19 | PRG ---
DATE OF SERVICE: 04/03/2019 SUBJECTIVE: The patient is resting, she is in restraints. De Leon catheter was placed yesterday. She is scheduled for renal scan this afternoon. OBJECTIVE: VITAL SIGNS: Stable. She is afebrile. ABDOMEN: Soft, nontender, nondistended. PERTINENT LABS: Yesterday, white count is normal. Renal function yesterday with creatinine of 0.87. Previous urine culture contaminated specimen demonstrates MRSA and Enterococcus. Blood culture negative. Repeat urine culture is pending. A repeat straight cath UA C and S was obtained demonstrating no epithelials, no bacteria, negative nitrite, 300 protein. The patient currently on Macrobid, previously provided vancomycin. IMPRESSION AND PLAN: Ms. Velasco is a 73-year-old female who was previously scheduled for outpatient ureteral stent exchange, admitted for mental status changes. CT of the brain negative. She has an indwelling De Leon catheter for Lasix renal scan. Await results. The patient has metastatic left renal cell carcinoma, clear cell involving the left kidney, left renal pelvis with multiple retroperitoneal pulmonary mets. She has been deemed a poor candidate for cytoreductive nephrectomy. Therefore, managed with ongoing immunotherapy, and interval stent exchange. We will proceed tomorrow. N.p.o. after midnight. She will be provided broad-spectrum antibiotics based on her previous urine culture results, on-call to OR. We'll DC Del Eon catheter after Lasix renal scan. Job ID: [id number] MTDD
--- NOTE | 2019-04-03 16:28 | NM ---
Radionucleotide renogram with washout HISTORY: Kidney cancer. Obstruction. FINDINGS: Arterial phase images show asymmetric uptake, with much more uptake of the right kidney 10 the left. Routine images at 49 minutes also show markedly increased uptake in the right kidney compared to the left. Split function shows 80% of uptake associated with the right kidney and 20% on the left. Normalized GFR calculated at 94.2 mL/m. Time of maximum on the right is 2.4 minutes and on the left is 2.3 minutes. Half life max on the righ t is 10.8 minutes and on the left is 14.7 minutes. Overall normal appearance of the washout curves. IMPRESSION: Markedly asymmetric renal function, with the right kidney accounting for 80% of the overa ll uptake. No evidence of urinary tract obstruction. Transcribed Date/Time: 04/03/2019 4:46 PM
[2019-04-03] MEDS ORDERED: Ziprasidone 20 MG VIAL IM SCH (19:45)
[2019-04-03] MEDS: Sodium Chloride 0.9% 1,000 ML IV SCH (20:07)
[2019-04-03] MEDS: Polyethylene Glycol 3350 17 GM Packet PO SCH (20:27)
[2019-04-03] MEDS: risperiDONE 1 MG TAB PO SCH (21:56)
[2019-04-03] MEDS: Doxepin HCl 25 MG CAP PO SCH (21:56)
[2019-04-03] MEDS: Pregabalin 50 MG CAP PO SCH (21:57)
[2019-04-03] MEDS: Dextromethorphan Hbr/Quinidine CAPSULE PO SCH (21:57)
[2019-04-04] MEDS: Haloperidol Lactate 5 MG/ML VIAL SLOW IVP PRN (01:29)
[2019-04-04] MEDS: Sodium Chloride 0.9% 1,000 ML IV SCH ×3 (01:31→23:06)
[2019-04-04] MEDS ORDERED: Vancomycin HCl 1 GM in Premix Bag 1 BAG IVPB SCH (04:00)
[2019-04-04] MEDS ORDERED: Piperacillin/Tazobactam 3.375 GM in Sodium Chloride 0.9% 100 ML IVPB SCH (04:00)
[2019-04-04] MEDS: Metoprolol Tartrate 50 MG TAB PO SCH ×2 (06:38→20:04)
[2019-04-04] MEDS: Insulin Glargine 26 UNITS in Pre-Filled Syringe 1 EACH SC SCH (09:35)
[2019-04-04] MEDS: Alogliptin 25 MG TAB PO SCH (09:44)
[2019-04-04] MEDS: [UNRECOGNIZED DRUG - OTHER] PO SCH (09:45)
[2019-04-04] MEDS: Bupropion 150 MG SR TAB PO SCH (09:45)
[2019-04-04] MEDS: Escitalopram Oxalate 20 mg Tablet PO SCH (09:45)
[2019-04-04] MEDS: Folic Acid 1 MG TAB PO SCH (09:45)
[2019-04-04] MEDS: Nitrofurantoin Monohyd/M-Cryst 100 MG CAP PO SCH (09:45)
[2019-04-04] MEDS: Famotidine 20 MG TAB PO SCH ×2 (09:45→20:04)
[2019-04-04] MEDS: Hydroxychloroquine Sulfate 200 MG TAB PO SCH ×2 (09:45→20:04)
[2019-04-04] MEDS ORDERED: Iothalamate Meglumine 60% 50 ML VIAL FS ONE (10:57)
[2019-04-04] MEDS ORDERED: Heparin 1,000 UNITS/ML VIAL ONE (11:11)
[2019-04-04] MEDS ORDERED: Fentanyl 100 MCG/2 ML VIAL ONE (11:23)
--- NOTE | 2019-04-04 12:58 | PDOC.PN ---
- Subjective Encounter Start Date: 04/04/19 Encounter Start Time: 10:30 -: old records requested/rev Patient seen and examined. No new complaints. No overnight events pt is requiring restraint and she is still encephalopathic - Objective MAR Reviewed: Yes Vital Signs & Weight: Vital Signs (12 hours) Temp Pulse Resp BP Pulse Ox 04/04/19 08:56 97.5 F L 68 20 184/83 H 100 04/04/19 08:00 100 Weight Weight 217 lb 5 oz I&O: 04/03/19 04/04/19 04/05/19 06:59 06:59 06:59 Intake Total 9866 457 7233 Output Total 750 1300 Balance 629 -700 1150 Result Diagrams: 04/01/19 23:09 04/02/19 05:00 Additional Labs: Accuchecks 04/04/19 04/03/19 04/03/19 06:06 20:39 17:02 POC Glucose 101 190 H 209 H Phys Exam - Physical Examination Constitutional: NAD HEENT: PERRLA, moist MMs, sclera anicteric Neck: no JVD, supple Respiratory: no wheezing, no rales, no rhonchi, clear to auscultation bilateral Cardiovascular: RRR, no significant murmur, no rub Gastrointestinal: soft, no distention, positive bowel sounds Musculoskeletal: no edema, pulses present Lymphatic: no nodes Skin: no rash, normal turgor Dx/Plan (1) Encephalopathy acute Code(s): G93.40 - ENCEPHALOPATHY, UNSPECIFIED Status: Acute (2) Thrombocytopenia Code(s): D69.6 - THROMBOCYTOPENIA, UNSPECIFIED Status: Acute (3) UTI (urinary tract infection) Status: Acute Comment: MRSA/Strep spp noted, start Bactrim DS BID, consider consultation with Urology (4) Weakness generalized Code(s): R53.1 - WEAKNESS Status: Acute (5) Hypertension Code(s): I10 - ESSENTIAL (PRIMARY) HYPERTENSION Status: Chronic Qualifiers: Hypertension type: essential hypertension Qualified Code(s): I10 - Essential (primary) hypertension Comment: Resume home BP regimen, serial monitoring (6) PEG (percutaneous endoscopic gastrostomy) status Code(s): Z93.1 - GASTROSTOMY STATUS Status: Chronic Comment: (7) SLE (systemic lupus erythematosus) Code(s): M32.9 - SYSTEMIC LUPUS ERYTHEMATOSUS, UNSPECIFIED Status: Chronic Comment: (8) Type 2 diabetes mellitus Status: Chronic Qualifiers: Diabetes mellitus complication status: with unspecified complications Comment: - Plan cont current plan of care, plan discussed w/ family, 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 * consult palliative care to explore hospice options * medication reviewed as below * symptomatic treatment * today stent exchange by urology * add vancomycin Review of Systems - Review of Systems Other: not reliable due to encephalopathy - Medications/Allergies Allergies/Adverse Reactions: Allergies Allergy/AdvReac Type Severity Reaction Status Date / Time No Known Drug Allergies Allergy Verified 03/22/19 14:36 Medications: Current Medications Acetaminophen (Tylenol) 650 mg PO Q4H PRN PRN Reason: Headache/Fever/Mild Pain (1-3) Acetaminophen (Tylenol) 650 mg [place] Q4H PRN PRN Reason: Headache/Fever/Mild Pain (1-3) Alogliptin Benzoate (Alogliptin) 25 mg PO DAILY [facility] Last Admin: 04/04/19 09:44 Dose: Not Given Bupropion HCl (Wellbutrin Sr) 300 mg PO DAILY [facility] Last Admin: 04/04/19 09:45 Dose: Not Given Dextromethorphan/Quinidine (Nuedexta 20-10 Mg Capsule) 1 cap PO [facility] Last Admin: 04/03/19 21:57 Dose: 1 cap Dextrose/Water (Dextrose 50%) 25 gm SLOW IVP PRN PRN PRN Reason: Hypoglycemia Doxepin HCl (Sinequan) 50 mg PO HS [facility] Last Admin: 04/03/19 21:56 Dose: 50 mg Escitalopram Oxalate (Lexapro) 20 mg PO DAILY [facility] Last Admin: 04/04/19 09:45 Dose: Not Given Famotidine (Pepcid) 20 mg PO BID [facility] Last Admin: 04/04/19 09:45 Dose: Not Given Folic Acid (Folvite) 1 mg PO DAILY [facility] Last Admin: 04/04/19 09:45 Dose: Not Given Glucagon (Glucagon) 1 mg IM PRN PRN PRN Reason: Hypoglycemia Haloperidol Lactate (Haldol) 2 mg SLOW IVP Q4H PRN PRN Reason: Agitation Last Admin: 04/04/19 01:29 Dose: 2 mg Hydroxychloroquine Sulfate (Plaquenil) 200 mg PO BID [facility] Last Admin: 04/04/19 09:45 Dose: Not Given Sodium Chloride (Normal Saline 0.9%) 1,000 mls @ 55 mls/hr IV .[id number] [facility] Last Admin: 04/04/19 09:49 Dose: Not Given Insulin Glargine 26 units/ (Miscellaneous Medication) 0.26 mls @ 0 mls/hr SC DAILY [facility] Last Admin: 04/04/19 09:35 Dose: Not Given Dextrose/Water (D5w) 1,000 mls @ 0 mls/hr IV .Q0M PRN PRN Reason: Hypoglycemia Vancomycin HCl 1 gm/ Device 200 mls @ 200 mls/hr IVPB ONCALL-OR BILLY Vancomycin HCl 1.5 gm/ Sodium (Chloride) 300 mls @ 200 mls/hr IVPB Q12H [facility] Piperacillin Sod/Tazobactam (Sod 3.375 gm/ Sodium Chloride) 100 mls @ 200 mls/ hr IVPB Q6HR [facility] Insulin Human Lispro (Humalog) 0 units SC .MODERATE SLIDING SC PRN PRN Reason: Moderate Correctional Scale Insulin Human Lispro (Humalog) 0 units SC .BEDTIME SLIDING SC PRN PRN Reason: Bedtime Correctional Scale Metoprolol Tartrate (Lopressor) 50 mg PO BID [facility] Last Admin: 04/04/19 06:38 Dose: 50 mg Miscellaneous Medication (Pharmacy To Dose) 1 each IVPB ASDIR [facility] Nystatin (Mycostatin Powder) 0 gm TOP DAILYPRN PRN PRN Reason: Topical Irritations Cabozantinib S- (Malate [Cabometyx]) 0 each PO DAILY [facility] Last Admin: 04/04/19 09:45 Dose: Not Given Polyethylene Glycol (Miralax) 17 gm PO [facility] Last Admin: 04/03/19 20:27 Dose: Not Given Prednisone (Prednisone) 10 mg PO QAM-WM [facility] Last Admin: 04/01/19 08:44 Dose: 10 mg Pregabalin (Lyrica) 50 mg PO [facility] Last Admin: 04/03/19 21:57 Dose: 50 mg Risperidone (Risperidone) 1 mg PO [facility] Last Admin: 04/03/19 21:56 Dose: 1 mg Senna/Docusate Sodium (Senokot S) 2 tab PO BID PRN PRN Reason: Constipation Sodium Chloride (Flush - Normal Saline) 10 ml IVF Q12HR PRN PRN Reason: Saline Flush Sodium Chloride (Flush - Normal Saline) 10 ml IVF PRN PRN PRN Reason: Saline Flush Sterile Water (Water For Injection) 1.2 ml FS PRN PRN PRN Reason: RECONSTITUTION Last Admin: 04/03/19 22:26 Dose: 1.2 ml
[2019-04-04] MEDS: Vancomycin HCl 1.5 GM in Sodium Chloride 0.9% 250 ML 300 ML IVPB SCH ×2 (13:45→23:06)
--- NOTE | 2019-04-04 14:53 | RAD ---
RETROGRADE PYELOGRAM: 04/04/2019 HISTORY: Stent placement. FINDINGS: Three images from a left pyelogram provided. There is contrast media within the collecting system on the left. There is a filling defect within the left renal pelvis, suspicious for underlying mass le terry. A double-J ureteral stent is placed on the left. In addition to the filling defect in the romie al pelvis, on the left, there is a filling defect identified within an upper pole calyx, which could signify tumor and/or blood clot. IMPRESSION: Double-J ureteral stent placement on the left. Filling defect within the renal collecting system on the left suggests underlying mass lesions. POS: [facility]
[2019-04-04] MEDS: Piperacillin/Tazobactam 3.375 GM in Sodium Chloride 0.9% 100 ML IVPB SCH ×2 (18:39→23:06)
--- NOTE | 2019-04-04 18:46 | OP ---
DATE OF PROCEDURE: 04/04/2019 PREOPERATIVE DIAGNOSES: 1. A 73-year-old female with history of diabetes, chronic kidney disease, coronary artery disease with history of chronic left hydronephrosis. 2. Left hydronephrosis secondary to metastatic renal cell carcinoma into the renal pelvis. 3. History of metastatic renal cell carcinoma, on immunotherapy with cabozantinib. 4. History of severe dementia. 5. History of methicillin-resistant Staphylococcus aureus and enterococcus urinary tract infection. POSTOPERATIVE DIAGNOSES: 1. A 73-year-old female with history of diabetes, chronic kidney disease, coronary artery disease with history of chronic left hydronephrosis. 2. Left hydronephrosis secondary to metastatic renal cell carcinoma into the renal pelvis. 3. History of metastatic renal cell carcinoma, on immunotherapy with cabozantinib. 4. History of severe dementia. 5. History of methicillin-resistant Staphylococcus aureus and enterococcus urinary tract infection. PROCEDURES PERFORMED: Cystoscopy, left retrograde pyelogram, 6 x 26 double-J ureteral stent exchange. ANESTHESIA: General. COMPLICATIONS: None apparent. DISPOSITION: To recovery room in stable condition. INDICATIONS FOR PROCEDURE AND HISTORY: Ms. Velasco is a 73-year-old female with history of severe dementia, lupus, metabolic encephalopathy, chronic kidney disease, who presented earlier this year and found to have UTI with a left renal pelvic mass. 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 She was found to have multiple metastatic diseases including pulmonary metastasis. She has been deemed poor surgical candidate for cytoreductive nephrectomy, therefore managed with immunotherapy, followed by Medical Oncology, and presents today for interval stent exchange. Her preoperative urine culture prior to surgical intervention today was negative. She was admitted on Tuesday due to mental status changes. Initial urine was contaminated. Recheck urinalysis, culture does demonstrate MRSA, enterococcus. She has been on appropriate antibiotic regimen. Culture guided vancomycin, Macrobid. She has been afebrile with no evidence of leukocytosis of septic parameters. She presents for cysto with stent exchange. She has been provided appropriate broad-spectrum antibiotic therapy with Zosyn and vancomycin. DESCRIPTION OF PROCEDURE: After an informed consent was signed, the patient was taken to the operating room, placed in the dorsal lithotomy position with the genital area prepped and draped in the usual surgical sterile fashion. The urethra was grossly unremarkable. She did pull out her [place] catheter for her renal scan yesterday. However, I did not see any intrinsic urethral laceration of concern. The bladder was entered, which demonstrated some sediment debris. The ureteral stent was in good position and removed to the level of the meatus. A 0.035 Sensor wire was passed through the stent into the left upper pole. Using a 10-Mexican dual-lumen access sheath, a retrograde pyelogram was performed gently with diluted contrast demonstrating again a filling defect as previous in the left renal pelvis and proximal ureter consistent with metastatic renal cell carcinoma, which was biopsy-proven and with pressure irrigation demonstrating some mild hydronephrosis. A 6 x 26 double-J ureteral stent was exchanged uneventfully. She tolerated the procedure well. The wire was removed. The patient had a Lasix renal scan yesterday, which demonstrated the left kidney has a 20% function with no evidence of obstruction. I will discuss with the patient's family regarding the findings. The plan is to continue her immunotherapy and restaging CT per discretion per Medical Oncology. Her prognosis remains poor due to multiple issues of metastatic renal cell carcinoma and comorbidities and severe dementia. Job ID: [id number] [facility]
--- NOTE | 2019-04-04 19:24 | OP ---
duplicate Job ID: [id number] MTDSalvatore
[2019-04-04] MEDS: Dextromethorphan Hbr/Quinidine CAPSULE PO SCH (20:04)
[2019-04-04] MEDS: Doxepin HCl 25 MG CAP PO SCH (20:04)
[2019-04-04] MEDS: risperiDONE 1 MG TAB PO SCH (20:04)
[2019-04-04] MEDS: Polyethylene Glycol 3350 17 GM Packet PO SCH (20:05)
[2019-04-04] MEDS: Pregabalin 50 MG CAP PO SCH (20:08)
[2019-04-05] MEDS: Piperacillin/Tazobactam 3.375 GM in Sodium Chloride 0.9% 100 ML IVPB SCH ×2 (05:08→11:25)
--- NOTE | 2019-04-05 07:37 | PRG ---
DATE OF SERVICE: 04/05/2019 SUBJECTIVE: The patient is alert, awake, oriented x1. Daughter at bedside. OBJECTIVE: VITAL SIGNS: She is afebrile. ABDOMEN: Soft, obese. No rigidity. No rebound. PERTINENT LABORATORY DATA: No repeat labs. Urine culture with history of MRSA, Enterococcus. Previously on Macrobid, Zosyn , and vancomycin. She is afebrile, nontoxic appearing. IMPRESSION AND PLAN: Ms. Velasco is a 73-year-old female with history of multiple comorbidities, lupus, diabetes, with known history of left clear cell renal cell carcinoma, metastatic disease, on immunotherapy. She is deemed a poor surgical candidate for cytoreductive nephrectomy. Moreover, she has progressed in her deconditioned status over the last few weeks. Her mental status is labile. Neurology workup is in progress. I did consent Infectious Disease regarding antibiotic regimen. PICC line if indicated by ID. The patient's family is now considering the patient to be considered for hospice transition given progressive neurologic deficit and concern regarding quality of life. I think that this is reasonable given her deconditioned status. Case management is following, hospice meeting today. I did discuss with daughter regarding if her mother chooses hospice transition, options include removing ureteral stent. Job ID: [id number] MTDD
[2019-04-05] MEDS: predniSONE 20 MG TAB PO SCH (09:15)
[2019-04-05] MEDS: Metoprolol Tartrate 50 MG TAB PO SCH ×2 (09:20→21:03)
[2019-04-05] MEDS: Alogliptin 25 MG TAB PO SCH (09:22)
[2019-04-05] MEDS: Hydroxychloroquine Sulfate 200 MG TAB PO SCH ×2 (09:23→21:03)
[2019-04-05] MEDS: Famotidine 20 MG TAB PO SCH ×2 (09:23→21:03)
[2019-04-05] MEDS: Folic Acid 1 MG TAB PO SCH (09:24)
[2019-04-05] MEDS: [UNRECOGNIZED DRUG - OTHER] PO SCH (09:24)
[2019-04-05] MEDS: Escitalopram Oxalate 20 mg Tablet PO SCH (09:25)
[2019-04-05] MEDS: Insulin Glargine 26 UNITS in Pre-Filled Syringe 1 EACH SC SCH (09:26)
--- NOTE | 2019-04-05 10:31 | PDOC.PN ---
- Subjective Encounter Start Date: 04/05/19 Encounter Start Time: 10:10 Patient seen and examined. No new complaints. No overnight events today she is without restraints and eating her breakfast - Objective MAR Reviewed: Yes Vital Signs & Weight: Vital Signs (12 hours) Temp Pulse Resp BP Pulse Ox 04/05/19 08:16 98.0 F 75 16 126/79 98 Weight Weight 217 lb 5 oz I&O: 04/04/19 04/05/19 04/06/19 06:59 06:59 06:59 Intake Total 600 1450 Output Total 1300 Balance -700 1450 Result Diagrams: 04/01/19 23:09 04/02/19 05:00 Additional Labs: Accuchecks 04/05/19 04/04/19 04/04/19 06:07 21:14 17:21 POC Glucose 125 H 196 H 125 H Phys Exam - Physical Examination Constitutional: NAD HEENT: PERRLA, moist MMs, sclera anicteric Neck: no JVD, supple Respiratory: no wheezing, no rales, no rhonchi Cardiovascular: RRR, no significant murmur, no rub Gastrointestinal: soft, non-tender, no distention, positive bowel sounds Musculoskeletal: no edema, pulses present Neurological: moves all 4 limbs Lymphatic: no nodes Skin: no rash, normal turgor Dx/Plan (1) Encephalopathy acute Code(s): G93.40 - ENCEPHALOPATHY, UNSPECIFIED Status: Acute (2) Thrombocytopenia Code(s): D69.6 - THROMBOCYTOPENIA, UNSPECIFIED Status: Acute (3) UTI (urinary tract infection) Status: Acute Comment: MRSA/Strep spp noted, start Bactrim DS BID, consider consultation with Urology (4) Weakness generalized Code(s): R53.1 - WEAKNESS Status: Acute (5) Hypertension Code(s): I10 - ESSENTIAL (PRIMARY) HYPERTENSION Status: Chronic Qualifiers: Hypertension type: essential hypertension Qualified Code(s): I10 - Essential (primary) hypertension Comment: Resume home BP regimen, serial monitoring (6) PEG (percutaneous endoscopic gastrostomy) status Code(s): Z93.1 - GASTROSTOMY STATUS Status: Chronic Comment: (7) SLE (systemic lupus erythematosus) Code(s): M32.9 - SYSTEMIC LUPUS ERYTHEMATOSUS, UNSPECIFIED Status: Chronic Comment: (8) Type 2 diabetes mellitus Status: Chronic Qualifiers: Diabetes mellitus complication status: with unspecified complications Comment: - Plan cont current plan of care, plan discussed w/ family, 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 * today neurology will evaluate and give opinion * suspected baseline dementia is getting worse * prognosis is very poor * medication reviewed as below * symptomatic treatment Review of Systems - Review of Systems Other: not reliable with pt due to her level of cognitive status - Medications/Allergies Allergies/Adverse Reactions: Allergies Allergy/AdvReac Type Severity Reaction Status Date / Time No Known Drug Allergies Allergy Verified 03/22/19 14:36 Medications: Current Medications Acetaminophen (Tylenol) 650 mg PO Q4H PRN PRN Reason: Headache/Fever/Mild Pain (1-3) Acetaminophen (Tylenol) 650 mg [place] Q4H PRN PRN Reason: Headache/Fever/Mild Pain (1-3) Alogliptin Benzoate (Alogliptin) 25 mg PO DAILY [facility] Last Admin: 04/05/19 09:22 Dose: 25 mg Dextromethorphan/Quinidine (Nuedexta 20-10 Mg Capsule) 1 cap PO HS [facility] Last Admin: 04/04/19 20:04 Dose: 1 cap Dextrose/Water (Dextrose 50%) 25 gm SLOW IVP PRN PRN PRN Reason: Hypoglycemia Doxepin HCl (Sinequan) 50 mg PO HS [facility] Last Admin: 04/04/19 20:04 Dose: 50 mg Escitalopram Oxalate (Lexapro) 20 mg PO DAILY [facility] Last Admin: 04/05/19 09:25 Dose: 20 mg Famotidine (Pepcid) 20 mg PO BID [facility] Last Admin: 04/05/19 09:23 Dose: 20 mg Folic Acid (Folvite) 1 mg PO DAILY [facility] Last Admin: 04/05/19 09:24 Dose: 1 mg Glucagon (Glucagon) 1 mg IM PRN PRN PRN Reason: Hypoglycemia Haloperidol Lactate (Haldol) 2 mg SLOW IVP Q4H PRN PRN Reason: Agitation Last Admin: 04/04/19 01:29 Dose: 2 mg Hydroxychloroquine Sulfate (Plaquenil) 200 mg PO BID [facility] Last Admin: 04/05/19 09:23 Dose: 200 mg Sodium Chloride (Normal Saline 0.9%) 1,000 mls @ 55 mls/hr IV .[id number] [facility] Last Admin: 04/04/19 23:06 Dose: Not Given Insulin Glargine 26 units/ (Miscellaneous Medication) 0.26 mls @ 0 mls/hr SC DAILY [facility] Last Admin: 04/05/19 09:26 Dose: 0.26 mls Dextrose/Water (D5w) 1,000 mls @ 0 mls/hr IV .Q0M PRN PRN Reason: Hypoglycemia Vancomycin HCl 1 gm/ Device 200 mls @ 200 mls/hr IVPB ONCALL-OR BILLY Vancomycin HCl 1.5 gm/ Sodium (Chloride) 300 mls @ 200 mls/hr IVPB Q12H [facility] Last Admin: 04/04/19 23:06 Dose: Not Given Piperacillin Sod/Tazobactam (Sod 3.375 gm/ Sodium Chloride) 100 mls @ 200 mls/ hr IVPB Q6HR [facility] Last Admin: 04/05/19 05:08 Dose: Not Given Insulin Human Lispro (Humalog) 0 units SC .MODERATE SLIDING SC PRN PRN Reason: Moderate Correctional Scale Insulin Human Lispro (Humalog) 0 units SC .BEDTIME SLIDING SC PRN PRN Reason: Bedtime Correctional Scale Metoprolol Tartrate (Lopressor) 50 mg PO BID [facility] Last Admin: 04/05/19 09:20 Dose: 50 mg Miscellaneous Medication (Pharmacy To Dose) 1 each IVPB ASDIR [facility] Nystatin (Mycostatin Powder) 0 gm TOP DAILYPRN PRN PRN Reason: Topical Irritations Cabozantinib S- (Malate [Cabometyx]) 0 each PO DAILY [facility] Last Admin: 04/05/19 09:24 Dose: Not Given Polyethylene Glycol (Miralax) 17 gm PO [facility] Last Admin: 04/04/19 20:05 Dose: Not Given Prednisone (Prednisone) 10 mg PO QAM-WM [facility] Last Admin: 04/05/19 09:15 Dose: 10 mg Pregabalin (Lyrica) 50 mg PO [facility] Last Admin: 04/04/19 20:08 Dose: 50 mg Risperidone (Risperidone) 1 mg PO [facility] Last Admin: 04/04/19 20:04 Dose: 1 mg Senna/Docusate Sodium (Senokot S) 2 tab PO BID PRN PRN Reason: Constipation Sodium Chloride (Flush - Normal Saline) 10 ml IVF Q12HR PRN PRN Reason: Saline Flush Sodium Chloride (Flush - Normal Saline) 10 ml IVF PRN PRN PRN Reason: Saline Flush Sterile Water (Water For Injection) 1.2 ml FS PRN PRN PRN Reason: RECONSTITUTION Last Admin: 04/03/19 22:26 Dose: 1.2 ml
[2019-04-05] MEDS: Sodium Chloride 0.9% 1,000 ML IV SCH (11:25)
[2019-04-05] MEDS: Vancomycin HCl 1.5 GM in Sodium Chloride 0.9% 250 ML 300 ML IVPB SCH ×2 (11:25→23:28)
--- NOTE | 2019-04-05 15:53 | SPC ---
Sonographic guided left upper extremity PICC placement HISTORY: Urinary tract infection. FINDINGS: After explaining the procedure and answering all questions, the left upper extremity was pr epped and draped in usual sterile fashion. Sterile technique, buffered local anesthesia, sonographic guidance, and a 22-gauge needle were used to carefully access the left cephalic vein. Sta ndard technique was used to place the tip of a 5 Malay dual-lumen PICC so that the tip lies at the level of the superior vena cava. The catheter was flushed and secured externally. Patient tolerated t he procedure well and was returned in unchanged condition. Fluoroscopy time 0 seconds. IMPRESSION: Left upper extremity PICC is ready for use.
[2019-04-05] MEDS: Doxepin HCl 25 MG CAP PO SCH (21:03)
[2019-04-05] MEDS: risperiDONE 1 MG TAB PO SCH (21:03)
[2019-04-05] MEDS: Dextromethorphan Hbr/Quinidine CAPSULE PO SCH (21:03)
[2019-04-05] MEDS: Polyethylene Glycol 3350 17 GM Packet PO SCH (21:04)
[2019-04-05] MEDS: Pregabalin 50 MG CAP PO SCH (21:05)
--- NOTE | 2019-04-05 22:37 | CON ---
DATE OF CONSULTATION: 04/05/2019 REASON FOR CONSULTATION: Pyelonephritis with obstruction. HISTORY OF PRESENT ILLNESS: 73-year-old who is known to me from prior visits when I saw her last time in 2019 in December. She has a history of type 2 diabetes, confusional state, and a 40-pound weight loss. 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 At that time, MRI showed ischemic white matter changes, pachymeningeal enhancement. After the steroids, the pachymeningeal enhancement resolved on followup MRI. All the infectious diseases assays in the CSF were negative. Then, she was admitted with abnormal urinalysis and positive blood cultures with Klebsiella, and a CT stone protocol showed findings that were concerning for possible malignancy, and Dr. Garcia completed a workup with a ureteroscopy and biopsy, which identified renal cell cancer, which is metastatic to lungs. The patient at this time was brought in because of altered mental status , which developed one week prior to admission and progressed. No fever was documented. Initial findings with temperature 98.1, pulse 82, respirations 18, O2 saturation 95%, and BP 160/102. Lungs were clear. Heart exam normal. Abdomen; soft, nontender. She was confused, but she appeared alert. White cell count 5.7, hemoglobin 13.8, and platelets 129. Sodium 137, creatinine was 1.02, glucose 111, albumin 3.4. Urine with greater than 50 rbc's and greater than 50 wbc's. The patient had a renal scan with medication, nuclear medicine study which showed asymmetric renal function with right kidney accounting for 80% overall uptake. She had a retrograde pyelogram, which showed a double-J ureteral stent placement on the left side. The patient underwent placement of a PICC line, and Dr. Garcia completed a cystoscopy with left retrograde pyelogram and exchange of the ureteral stent. No complications. Currently, Ms. Velasco is awake, appears in no distress. She was able to realize that she was at [facility], but could not tell me the city and followed commands without difficulty. She denies any headaches. No visual symptoms, sore throat , or odynophagia. No cough, sputum production, or chest pain. No abdominal pain. She is voiding spontaneously. PAST MEDICAL HISTORY: Systemic lupus erythematosus, rheumatoid arthritis, lupus encephalitis, and type 2 diabetes. SOCIAL HISTORY: Never smoker. Lives in an assisted living. ALLERGIES: NONE. FAMILY HISTORY: Noncontributory. CURRENT MEDICATIONS: 1. Tylenol. 2. Alogliptin. 3. Nuedexta. 4. Sinequan. 5. Lexapro. 6. Pepcid. 7. Folvite. 8. Haldol. 9. Plaquenil. 10. Insulin. 11. Lopressor. 12. Cabozantinib for renal cell cancer. 13. Prednisone 10 mg daily. 14. Lyrica. 15. Risperidone. 16. Senokot. 17. Vancomycin. PHYSICAL EXAMINATION: VITAL SIGNS: T-max 98.8, blood pressure 126/79. SKIN: Exam shows mild excoriation in the gluteal area. There is intertriginous maceration with chronic fungal infection in the intertriginous area of the perineal region, and there is an area of bruising with laceration of the right forearm, peripheral IV access. She is voiding in the diaper. NEUROLOGIC: Awake. She knows her name and knew she was at [facility], could not tell me the city or the date. HEENT: Ocular movements conjugate. Oral cavity moist. NECK: Supple. LUNGS: Symmetric, clear breath sounds. HEART: S1 and S2, regular rate. ABDOMEN: Soft. Not distended or tender. No ascites. No bladder distention. EXTREMITIES: No joint inflammatory activity. Pulses are 1+ in dorsalis pedis. Plantar responses are flexor. She is able to move all extremities. She is awake, but has difficulty with speech. She will recall certain words, but has difficulty word finding and somewhat disoriented. LABORATORY DATA: White cell count was 5.7 and now 6.0, hemoglobin 13.5, and platelets 119,000. Sodium 134 and creatinine 0.87. Liver profile normal. Albumin 3.4, globulin 4.5. Urinalysis with greater than 50 rbc's and greater than 50 wbc's. Microbiology with MRSA and Enterococcus faecalis in two different samples of urine, greater than 100,000 CFUs on admission of each organism. ASSESSMENT: 1. Systemic lupus erythematosus with previous cerebritis. 2. Recently diagnosed metastatic renal cell cancer, status post stent placement, undergoing treatment with kinase inhibitor. 3. Altered mental status and abnormal urinalysis. DISCUSSION: The patient's blood cultures actually that we have a final result of negative in 5 days. The patient's colonization of the urinary tract could be associated with an invasive process. We do not have a recorded temperature elevation or neutrophilia. Alternate processes would include changes related to her systemic lupus erythematosus. It is not certain that the changes presented by the patient are due to the urinary findings, but I think in the face of the urinalysis and difficulty and ascertaining the presence of invasive features and the fact that she does have the device in the ureter leading to the to the bladder from the kidney. They would increase the risk of truly invasive infection. So, I do not think we have any option, but to continue vancomycin and place an access either midline or PICC line and give another 10 days of treatment. 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 Job ID: [id number] [email or web address]
--- NOTE | 2019-04-06 07:58 | PRG ---
DATE OF SERVICE: 04/06/2019 SUBJECTIVE: The patient is somnolent, daughter at bedside. OBJECTIVE: VITAL SIGNS: Stable. ABDOMEN: Soft, protuberant, obese, nontender, nondistended. No rigidity. No rebound. There are no new labs. Events over the last 24, reviewed. The patient did receive a PICC line, however, she pulled that out. Currently on Zyvox as an alternative option per Dr. Hermosillo, his input is appreciated. IMPRESSION AND PLAN: 1. A 73-year-old morbidly obese female with history of diabetes. 2. Lupus. 3. History of coronary artery disease. 4. Known history of left renal cell carcinoma, clear cell, metastatic, lung metastasis, left renal pelvic metastasis resulting in hydronephrosis. Postop day #2, status post cysto retrograde stent exchange due to urine culture demonstrating methicillin-resistant Staphylococcus aureus, Enterococcus. She was provided IV vancomycin, now on Zyvox as she pulled her PICC line out with poor IV access. The patient is severely deconditioned, severe dementia, altered mental status. Significant progression in frailty. Hospice consultation has been initiated. The daughter is at bedside who is considering transitioning to hospice. However, disposition is pending. From urologic perspective, the patient can be dispo'ed to [facility] or hospice per family's discretion. I will provide an elective followup with me in 4-6 weeks. The daughter advised to contact me if hospice transition as I would recommend cysto stent pull local in my office. She verbalizes understanding and agrees and will notify me regarding final dispo. Cleared for discharge from perspective. Job ID: [id number] MTDD
[2019-04-06 08:23] VITALS: BP 115/78; TEMP 97.9
[2019-04-06] MEDS ORDERED: Linezolid 600 MG TAB PO SCH (09:00)
--- NOTE | 2019-04-06 11:04 | PDOC.PN ---
- Subjective Encounter Start Date: 04/06/19 Encounter Start Time: 10:10 pt is sleepy, daughter bedside she pulled her picc line yesterday now on po zyvox - Objective MAR Reviewed: Yes Vital Signs & Weight: Vital Signs (12 hours) Temp Pulse Resp BP Pulse Ox 04/06/19 08:22 97.9 F 59 L 18 115/78 93 L Weight Weight 217 lb 5 oz I&O: 04/05/19 04/06/19 04/07/19 06:59 06:59 06:59 Intake Total 1450 240 Balance 1450 240 Result Diagrams: 04/01/19 23:09 04/02/19 05:00 Additional Labs: Accuchecks 04/06/19 04/05/19 04/05/19 06:05 19:53 16:50 POC Glucose 104 214 H 178 H 04/05/19 12:05 POC Glucose 130 H Phys Exam - Physical Examination Constitutional: NAD Neck: no JVD, supple Respiratory: no wheezing, no rales, no rhonchi Cardiovascular: RRR, no significant murmur, no rub Gastrointestinal: soft, non-tender, no distention, positive bowel sounds Musculoskeletal: no edema, pulses present Lymphatic: no nodes Skin: no rash, normal turgor Dx/Plan (1) Encephalopathy acute Code(s): G93.40 - ENCEPHALOPATHY, UNSPECIFIED Status: Acute (2) Thrombocytopenia Code(s): D69.6 - THROMBOCYTOPENIA, UNSPECIFIED Status: Acute (3) UTI (urinary tract infection) Status: Acute Comment: MRSA/Strep spp noted, start Bactrim DS BID, consider consultation with Urology (4) Weakness generalized Code(s): R53.1 - WEAKNESS Status: Acute (5) Hypertension Code(s): I10 - ESSENTIAL (PRIMARY) HYPERTENSION Status: Chronic Qualifiers: Hypertension type: essential hypertension Qualified Code(s): I10 - Essential (primary) hypertension Comment: Resume home BP regimen, serial monitoring (6) PEG (percutaneous endoscopic gastrostomy) status Code(s): Z93.1 - GASTROSTOMY STATUS Status: Chronic Comment: (7) SLE (systemic lupus erythematosus) Code(s): M32.9 - SYSTEMIC LUPUS ERYTHEMATOSUS, UNSPECIFIED Status: Chronic Comment: (8) Type 2 diabetes mellitus Status: Chronic Qualifiers: Diabetes mellitus complication status: with unspecified complications Comment: - Plan cont current plan of care, plan discussed w/ family, continue antibiotics, 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 Review of Systems - Review of Systems Other: unable to review due to encephalopathy - Medications/Allergies Allergies/Adverse Reactions: Allergies Allergy/AdvReac Type Severity Reaction Status Date / Time No Known Drug Allergies Allergy Verified 03/22/19 14:36 Medications: Current Medications Acetaminophen (Tylenol) 650 mg PO Q4H PRN PRN Reason: Headache/Fever/Mild Pain (1-3) Acetaminophen (Tylenol) 650 mg WA Q4H PRN PRN Reason: Headache/Fever/Mild Pain (1-3) Alogliptin Benzoate (Alogliptin) 25 mg PO DAILY [facility] Last Admin: 04/05/19 09:22 Dose: 25 mg Dextromethorphan/Quinidine (Nuedexta 20-10 Mg Capsule) 1 cap PO HS [facility] Last Admin: 04/05/19 21:03 Dose: 1 cap Dextrose/Water (Dextrose 50%) 25 gm SLOW IVP PRN PRN PRN Reason: Hypoglycemia Doxepin HCl (Sinequan) 50 mg PO HS [facility] Last Admin: 04/05/19 21:03 Dose: 50 mg Escitalopram Oxalate (Lexapro) 20 mg PO DAILY [facility] Last Admin: 04/05/19 09:25 Dose: 20 mg Famotidine (Pepcid) 20 mg PO BID [facility] Last Admin: 04/05/19 21:03 Dose: 20 mg Folic Acid (Folvite) 1 mg PO DAILY [facility] Last Admin: 04/05/19 09:24 Dose: 1 mg Glucagon (Glucagon) 1 mg IM PRN PRN PRN Reason: Hypoglycemia Hydroxychloroquine Sulfate (Plaquenil) 200 mg PO BID [facility] Last Admin: 04/05/19 21:03 Dose: 200 mg Insulin Glargine 26 units/ (Miscellaneous Medication) 0.26 mls @ 0 mls/hr SC DAILY [facility] Last Admin: 04/05/19 09:26 Dose: 0.26 mls Dextrose/Water (D5w) 1,000 mls @ 0 mls/hr IV .Q0M PRN PRN Reason: Hypoglycemia Insulin Human Lispro (Humalog) 0 units SC .MODERATE SLIDING SC PRN PRN Reason: Moderate Correctional Scale Insulin Human Lispro (Humalog) 0 units SC .BEDTIME SLIDING SC PRN PRN Reason: Bedtime Correctional Scale Last Admin: 04/05/19 21:07 Dose: 2 unit Linezolid (Zyvox) 600 mg PO BID [facility] Metoprolol Tartrate (Lopressor) 50 mg PO BID [facility] Last Admin: 04/05/19 21:03 Dose: 50 mg Nystatin (Mycostatin Powder) 0 gm TOP DAILYPRN PRN PRN Reason: Topical Irritations Cabozantinib S- (Malate [Cabometyx]) 0 each PO DAILY [facility] Last Admin: 04/05/19 09:24 Dose: Not Given Polyethylene Glycol (Miralax) 17 gm PO [facility] Last Admin: 04/05/19 21:04 Dose: 17 gm Prednisone (Prednisone) 10 mg PO QA-[facility] Last Admin: 04/05/19 09:15 Dose: 10 mg Pregabalin (Lyrica) 50 mg PO [facility] Last Admin: 04/05/19 21:05 Dose: 50 mg Risperidone (Risperidone) 1 mg PO [facility] Last Admin: 04/05/19 21:03 Dose: 1 mg Senna/Docusate Sodium (Senokot S) 2 tab PO BID PRN PRN Reason: Constipation Sodium Chloride (Flush - Normal Saline) 10 ml IVF Q12HR PRN PRN Reason: Saline Flush Sodium Chloride (Flush - Normal Saline) 10 ml IVF PRN PRN PRN Reason: Saline Flush Sterile Water (Water For Injection) 1.2 ml FS PRN PRN PRN Reason: RECONSTITUTION Last Admin: 04/03/19 22:26 Dose: 1.2 ml
[2019-04-06] MEDS: Alogliptin 25 MG TAB PO SCH (12:43)
[2019-04-06] MEDS: predniSONE 20 MG TAB PO SCH (12:43)
[2019-04-06] MEDS: Insulin Glargine 26 UNITS in Pre-Filled Syringe 1 EACH SC SCH (12:44)
[2019-04-06] MEDS: Metoprolol Tartrate 50 MG TAB PO SCH (12:44)
[2019-04-06] MEDS: Famotidine 20 MG TAB PO SCH (12:44)
[2019-04-06] MEDS: [UNRECOGNIZED DRUG - OTHER] PO SCH (12:44)
[2019-04-06] MEDS: Folic Acid 1 MG TAB PO SCH (12:44)
[2019-04-06] MEDS: Hydroxychloroquine Sulfate 200 MG TAB PO SCH (12:44)
[2019-04-06] MEDS: Escitalopram Oxalate 20 mg Tablet PO SCH (12:44)
--- NOTE | 2019-04-06 13:27 | DIS ---
DATE OF ADMISSION: 03/30/2019 DATE OF DISCHARGE: 04/06/2019 PRIMARY CARE PHYSICIAN: Jacqueline Persaud MD DISCHARGE DISPOSITION: halfway with Hospice. PRIMARY DISCHARGE DIAGNOSES: 1. Multifactorial encephalopathy. 2. Urinary tract infection due to methicillin-resistant Staphylococcus aureus. 3. Thrombocytopenia. SECONDARY DISCHARGE DIAGNOSES: 1. Diabetes type 2. 2. Systemic lupus erythematosus. 3. Hypertension. 4. Obesity with body mass index 37. PRIMARY PROCEDURE/OPERATION: Dr. Garcia did stent exchange. RADIOLOGICAL INVESTIGATION: 1. CT brain. 2. Renal scan. SIGNIFICANT LABORATORY DATA: Hemoglobin 13.5, creatinine 0.87. Urinalysis suggestive of UTI. Urine culture grew MRSA and Enterococcus. DISCHARGE MEDICATION: 1. Zyvox 600 mg twice daily for 10 days. 2. Wellbutrin SR 300 mg daily. 3. Risperidone 1 mg p.o. at bedtime. 4. Lyrica 50 mg p.o. at bedtime. 5. Prednisone 10 mg daily. 6. Potassium chloride 20 mEq p.o. as directed. 7. MiraLAX 17 g p.o. daily. 8. Metoprolol 50 mg b.i.d. 9. Losartan 50 mg daily. 10. Tradjenta 5 mg daily. 11. Levemir 26 units subcu daily. 12. Lispro as per sliding scale. 13. Plaquenil 200 mg b.i.d. 14. Lasix 20 mg p.o. as directed. 15. Folic acid 1 mg daily. 16. Pepcid 20 mg p.o. b.i.d. 17. Lexapro 20 mg daily. 18. Doxepin 50 mg p.o. at bedtime. 19. Dextromethorphan with quinidine 1 capsule p.o. at bedtime. 20. Vitamin B12 1000 mcg p.o. daily. 21. Vitamin D3 1000 units p.o. daily. 22. Colace 100 mg p.o. b.i.d. CONTRAINDICATION: None. CODE STATUS: DNR. IN-PATIENT OXYGEN THERAPY TEACHER: 1. Dr. Garcia, was following while in hospital. 2. Dr. Hermosillo was consulted while in hospital. 3. Dr. Nathanael Brambila, neurologist was following while in hospital. TEST RESULTS PENDING ON DISCHARGE: None. ALLERGIES: NO KNOWN DRUG ALLERGIES. DISCHARGE PLAN: Posthospital, the patient is discharged to Hospice facility for comfort care. HOSPITAL COURSE: A 73-year-old female, who has multiple medical problems including advanced dementia. She was admitted by Lori Renteria for altered mental status. She was encephalopathy. She was confused while in hospital. Her urinalysis was consistent with UTI. She was treated with broad-spectrum antibiotic therapy. Her urine culture grew MRSA and Enterococcus. She was given vancomycin and subsequently Macrobid, and Dr. Hermosillo recommended to change to vancomycin. She had a PICC line placed for long-term antibiotic therapy for 10 more days, but she pulled out PICC line as well as she was pulling out all IV access while in the hospital and that is why, Zyvox was changed on discharge. This patient's encephalopathy did not improve and the patient already had full workup done in recent past as inpatient as well as outpatient basis without any overall improvement. We are suspecting that this patient has underlying dementia, which is gradually getting worse. The patient's daughter cannot take care of her at home and that is why, she needs to go to senior care home. The patient's long-term prognosis is also poor because of multiple comorbidities with renal cell carcinoma and metastasis and that is why, the patient's daughter agreed with the Hospice evaluation, Hospice approved for her. This patient is planned for discharge to Hospice care[facility]. Paperwork for discharge done. Discharge medication reconciliation done. Job ID: [id number]
--- NOTE | 2019-04-07 13:33 | EKG ---
Test Reason : Blood Pressure : / mmHG Vent. Rate : 077 BPM Atrial Rate : 077 BPM P-R Int : 176 ms QRS Dur : 094 ms QT Int : 362 ms P-R-T Axes : 036 -11 109 degrees QTc Int : 409 ms Normal sinus rhythm Minimal voltage criteria for LVH, may be normal variant Inferior infarct , age undetermined Possible Anterior infarct , age undetermined Abnormal ECG Confirmed by DEANGELO CANO, ANDREAS ([id number]), purchasing expeditor MANGO GARIBAY ([id number]) on 04/07/2019 1:33:33 PM Referred By: Confirmed By:ANDREAS BRIGHT MD
== END 2019-04-06 14:21 | disposition hospice, inpatient (51) | DRG 660 ==
LOC: ERS 13:40 → T4-B 18:32
PROVIDERS: ADMIT Family Medicine; ATTEND Family Medicine
PROC: 0T9B70Z Drainage of Bladder with Drainage Device, Via Natural or Artificial Opening (ICD-10-PCS; 2019-04-02)
PROC: 0T778DZ Dilation of Left Ureter with Intraluminal Device, Via Natural or Artificial Opening Endoscopic (ICD-10-PCS; principal; 2019-04-04)
PROC: 0TP98DZ Removal of Intraluminal Device from Ureter, Via Natural or Artificial Opening Endoscopic (ICD-10-PCS; 2019-04-04)
PROC: BT1FYZZ Fluoroscopy of Left Kidney, Ureter and Bladder using Other Contrast (ICD-10-PCS; 2019-04-04)
DX: N13.6 Pyonephrosis (principal); G93.49 Other encephalopathy; C64.2 Malignant neoplasm of left kidney, except renal pelvis; C78.01 Secondary malignant neoplasm of right lung; F03.90 Unspecified dementia, unspecified severity, without behavioral disturbance, psychotic disturbance, mood disturbance, and anxiety; N18.4 Chronic kidney disease, stage 4 (severe); Z66 Do not resuscitate; E11.22 Type 2 diabetes mellitus with diabetic chronic kidney disease; I25.10 Atherosclerotic heart disease of native coronary artery without angina pectoris; I12.9 Hypertensive chronic kidney disease with stage 1 through stage 4 chronic kidney disease, or unspecified chronic kidney disease; F41.9 Anxiety disorder, unspecified; F32.9 Major depressive disorder, single episode, unspecified; M32.9 Systemic lupus erythematosus, unspecified; D69.6 Thrombocytopenia, unspecified; B95.62 Methicillin resistant Staphylococcus aureus infection as the cause of diseases classified elsewhere; E66.01 Morbid (severe) obesity due to excess calories; B95.2 Enterococcus as the cause of diseases classified elsewhere; Z86.14 Personal history of Methicillin resistant Staphylococcus aureus infection; Z93.1 Gastrostomy status; Z68.37 Body mass index [BMI] 37.0-37.9, adult; Z79.899 Other long term (current) drug therapy; Z79.52 Long term (current) use of systemic steroids
CPT/HCPCS: 36415; 36416; 36569; 51701; 70450; 74420; 78708; 80048; 80053; 80069; 81001; 81003; 81015; 82140; 82533; 82607; 83605; 83690; 84484; 85025; 87040; 87077; 87086; 87186; 93005; 94760; 96365; A4353; A4641; A9562; C1751; C1758; C1769; J0696; J1630; J1644; J1825; J2543; J3010; J3370; J3486; J3490; J7050; J7512; Q9961

== ENCOUNTER 2020-04-06 10:34 | Inpatient (IN) | payer MEDICARE, MEDICAID ==
--- NOTE | 2020-04-06 11:54 | RAD ---
Exam: Chest one view HISTORY:Preoperative exam. Right leg fracture. Comparison: 01/10/2019 FINDINGS: Cardiac silhouette:Cardiomegaly. Aorta: Atherosclerosis. Pulmonary vessels: Normal Costophrenic angles: Clear LUNGS: Multiple masslike opacities involving the left and right lung parenchyma. Correlate for a neop lastic process versus a localized pneumonia, multilobar. Right hilar masslike opacity measures at least 5.6 cm in the craniocaudal dimension Pneumothorax: None Osseous abnormalities: None IMPRESSION: 1. Atherosclerosis 2. Cardiomegaly 3. Multi focal masslike opacities. Correlate for neoplasm versus multi lobar pneumonia. Postcontrast chest CT is recommended
[2020-04-06] MEDS ORDERED: Morphine 4 MG/ML VIAL ONE (12:04)
--- NOTE | 2020-04-06 12:06 | CT ---
Exam: CT brain PROVIDED CLINICAL HISTORY: Altered mental status COMPARISON: 04/03/2020 FINDINGS: The ventricular system is normal in size and morphology. No evidence for intracranial hemorrhage or mass effect. The extracranial soft tissues and osseous structures demonstrate no evidence for an acute abnormality. Chronic microvascular ischemic changes as recently described are redemonstrated. IMPRESSION: No evidence for intracranial hemorrhage or mass effect.
[2020-04-06] MEDS ORDERED: Lidocaine 1% PF 5 ML VIAL ONE (12:19)
[2020-04-06] MEDS ORDERED: PROPOFOL 200 MG/20 ML VIAL ONE (12:19)
[2020-04-06] MEDS ORDERED: Ondansetron PF 4 MG/2 ML Vial ONE (12:19)
[2020-04-06] MEDS ORDERED: Dexamethasone 20 MG/5 ML VIAL ONE (12:19)
[2020-04-06] MEDS ORDERED: Ondansetron PF 4 MG/2 ML Vial IVP PRN (12:28)
[2020-04-06] MEDS ORDERED: Dextrose 50% Abboject 50 ML SYRINGE SLOW IVP PRN (12:28)
[2020-04-06] MEDS ORDERED: HumaLOG 300 UNITS/3 ML VIAL SC PRN ×2 (12:28)
[2020-04-06] MEDS ORDERED: Dextrose 5% in Water 1,000 ML IV PRN (12:28)
[2020-04-06] MEDS ORDERED: Morphine 2 MG/ML SYRINGE SLOW IVP PRN (12:28)
[2020-04-06] MEDS ORDERED: hydrALAZINE 20 MG/ML VIAL SLOW IVP PRN (12:28)
[2020-04-06] MEDS ORDERED: traMADol HCl 50 MG TAB PO PRN (12:33)
[2020-04-06 12:53] LABS: Lactic Acid 2.3 mmol/L (0.5-2.2)
--- NOTE | 2020-04-06 13:24 | RAD ---
EXAM: XR Tib Fib Rt Leg 2 View PROVIDED CLINICAL HISTORY: Fibular fracture COMPARISON: Examination earlier same date FINDINGS: Interval reduction of tibiotalar dislocation and distal fibular fracture. Nondisplaced posterior mall eolar fracture is also noted. Posterior splint placement. No additional fracture is evident. IMPRESSION: As above.
--- NOTE | 2020-04-06 13:25 | RAD ---
EXAM: XR Humerus Rt 2 View STANDARD PROVIDED CLINICAL HISTORY: Pain FINDINGS: There is no evidence for fracture or other acute osseous abnormality. Alignment appears anatomic. Heidi nt spaces appear preserved. IMPRESSION: No evidence for an acute osseous abnormality. If there is persistent clinical concern, conservative m anagement and follow-up imaging advised.
--- NOTE | 2020-04-06 13:25 | RAD ---
EXAM: XR Femur Rt 2 View STANDARD PROVIDED CLINICAL HISTORY: Pain FINDINGS: There is no evidence for fracture or other acute osseous abnormality. Alignment appears anatomic. Cherelle luation is limited of the hip due to patient body habitus and portable technique. Degenerative changes are seen at the hip and knee. IMPRESSION: No evidence for an acute osseous abnormality. If there is persistent clinical concern, conservative m anagement and follow-up imaging advised.
--- NOTE | 2020-04-06 14:46 | HP ---
TRAUMA SURGEON: Dr. Leon. CONSULTING PHYSICIAN: Dr. Restrepo. HISTORY OF PRESENT ILLNESS: The patient is a 74-year-old female, presented to the emergency department here with a right open ankle fracture. The patient was transferred from [place] [facility]. She lives in an assisted living facility and she fell today. The patient reports that she was not weak or dizzy and she just fell. She denies loss of consciousness and anticoagulation use, but as I am talking to her, she is not completely awake and alert and is a little bit drowsy, but she follows commands appropriately. She does have a history of dementia, however, after speaking with her daughter on the phone, it appears that her mentation has declined more recently. She does have a recent history of a fall about 3 days ago, where she had a laceration to her leg that was sutured. About 5 days ago, she was started on Bactrim for urinary tract infection. It is unclear if she is still on that medication or how compliant she has been. Her family has not been able to visit her. Upon evaluation, the patient complained of pain to her right shoulder and right distal thigh and knee as well as her right ankle. REVIEW OF SYSTEMS: All additional 10-point review of systems negative except as indicated above. PAST MEDICAL HISTORY: CKD stage 4, diabetes, hypertension, general weakness, neurolupus, CAD, dementia, anxiety, depression, renal cancer with mets to the lung, has been on hospice for the past four years. SURGERIES: Tonsillectomy, cardiac stents. SOCIAL HISTORY: The patient lives at an assisted living facility in [place]. Her daughter is the only child and is her POA. Reports no drug, tobacco, or alcohol use. MEDICATIONS: 1. Lexapro. 2. Metoprolol. 3. Doxepin. 4. Folic acid. 5. Lyrica. 6. Hydroxychloroquine. 7. Losartan. 8. Cephalexin. 9. Macrobid. 10. Nystatin. 11. Tylenol. 12. Zofran. 13. Benadryl. 14. Delsym. 15. Albuterol. 16. Lorazepam. 17. Glyburide. 18. Prednisone. 19. Morphine. ALLERGIES: NO KNOWN DRUG ALLERGIES. PHYSICAL EXAMINATION: VITAL SIGNS: Temperature 97.6, pulse 83, respirations 20, oxygen saturation 100% on 2 L nasal cannula, blood pressure 150/64. PRIMARY SURVEY: Airway intact. Adequate breath sounds bilaterally. 2+ pulses in bilateral radials, femorals, and DPs. GCS 14, -1 for verbal. Gross motor and sensation are intact. No lacerations are noted. She has bruising to her right shoulder and her right tib-fib. No signs of active bleeding. She does have small avulsion laceration to her right elbow. SECONDARY SURVEY: HEAD: Normocephalic, atraumatic. No gross palpable skull deformities. EYES: Pupils 3-2, equal, round, and reactive to light bilaterally. C-SPINE: No step-offs or deformities. Nontender. C-collar not in place. CHEST: Nontender. No crepitus. No abrasions or ecchymosis. Equal chest movement. ABDOMEN: Soft, nontender, nondistended. The patient does have linear bruising over the middle of her abdomen. PELVIS: Stable to palpation. Nontender. No abrasions or ecchymosis. RECTAL: Deferred. GENITOURINARY: Deferred. EXTREMITIES: She has a splint to her right ankle that is clean, dry, and in place. She has bruising to her right tib-fib and pain to the right knee and distal femur. She has bruising over the right shoulder with associated pain. She has a small avulsion laceration to her right elbow. BACK/SPINE: No step-offs or deformities or tenderness to palpation of the thoracic or lumbar spine. No abrasions or ecchymosis noted. NEUROLOGIC: 5/5 strength in bilateral regional retail sales manager, dorsiflexion, plantar flexion. Gross normal sensation x4 extremities. LABORATORY FINDINGS: White count 11.1, hemoglobin 9.6, hematocrit 32.5, platelets 214. INR 1.1. Sodium 140, potassium 4.1, chloride 103, bicarb 25, BUN 22, creatinine 1.58, glucose 110. Lactic acid 2.3. DIAGNOSTIC FINDINGS: Chest x-ray demonstrates atherosclerosis, cardiomegaly, multiple focal masslike opacities correlate for neoplasm versus small lobar pneumonia. X-ray of the right tib-fib demonstrates interval reduction of the tibiotalar dislocation and distal fibular fracture, nondisplaced posterior medial malleolus fracture. No additional fractures are evident. X-ray of the right femur demonstrates no evidence for acute osseous abnormality. X-ray of the right humerus demonstrates no evidence for acute osseous abnormality. X-ray of the right forearm demonstrates no evidence for an acute osseous abnormality. ASSESSMENT: 1. Status post multiple recent falls at her assisted living center. 2. Right open distal tib-fib fracture dislocation. 3. Acute kidney injury on chronic kidney disease stage 4. 4. Recent history of urinary tract infection with treatment by Macrobid, unknown compliance. 5. Slightly elevated lactic acid. 6. Altered mental status, unsure chronicity or severity of current change. 7. History of renal cancer with metastasis to the lungs, on hospice x1 year, CKD stage 4, diabetes, hypertension, general weakness, neurolupus, CAD, dementia, anxiety, and depression. PLAN: The patient will be admitted to the Trauma Service. We will repeat a UA and urine culture. She is receiving IV fluid resuscitation in the emergency department. She will receive IV fluids postoperatively as well for acute kidney injury. It is likely that her altered mental status has been caused by combination of the urinary tract infection and dehydration. We will restart all of her home medications once the med rec is completed. Dr. Restrepo is taking the patient to the OR today to address her right open ankle fracture. I did speak to the patient's daughter, Nayla Sherwood, she is the patient's only child. She reported that her mother's mentation had been declining recently, but since she was unable to visit her due to COVID, she is not sure as to the extent of the decline. She was supposed to be transferring over to a longterm bed from the assisted living bed. She has been on hospice for years. She is a DNR. Nayla Sherwood is her POA and reports that the patient will be a DNR inpatient as well. The patient will go to surgery today and then be admitted to [place] [address]. This patient was discussed with Dr. Leon before this dictation. Job ID: [id number]
[2020-04-06] MEDS ORDERED: Fentanyl 100 MCG/2 ML VIAL ONE (15:12)
[2020-04-06] MEDS ORDERED: Promethazine HCl 25 MG/ML VIAL IM PRN ×2 (16:10→16:20)
[2020-04-06] MEDS ORDERED: Ondansetron HCl/PF 4 MG/2 ML Vial IVP PRN ×2 (16:10→16:20)
[2020-04-06] MEDS ORDERED: Promethazine HCl 25 MG/ML VIAL SLOW IVP PRN ×2 (16:10→16:20)
[2020-04-06] MEDS ORDERED: Morphine Sulfate 2 MG/ML SYRINGE SLOW IVP PRN ×2 (16:10→16:20)
--- NOTE | 2020-04-06 16:56 | RAD ---
Left ankle 2 views intraoperative fluoroscopy HISTORY: Fracture. FINDINGS: Intraoperative fluoroscopy was provided for internal fixation as performed by Dr. Restrepo. Spot fluoroscopic images show metallic sideplate and multiple screws transfixing the distal fibular fracture. Alignment is anatomic. Fluoroscopy time 9 seconds.
[2020-04-06 18:06] LABS: Bacteria/HPF 2+ HPF (None Seen); Bilirubin Negative (Negative); Blood, Urine 3+ (Negative); Clarity Turbid (Clear); Glucose, Urine (Dipstick) Normal (Negative); Leukocyte 500 Leu/uL (Negative); Nitrite Negative (Negative); Protein, Urine (Dipstick) 300 mg/dL (Neg-Trace); RBC/HPF Greater than 50 HPF (0-3); Squamous Epithelial 0-3 HPF (0-3); Urobilinogen Normal mg/dL (Less than 2); WBC/HPF Greater than 50 HPF (0-3)
[2020-04-06 18:09] LABS: Urine Culture Reflex Yes Yes
[2020-04-06] MEDS ORDERED: cefTRIAXone\\ROCEPHIN 1 GM in Sodium Chloride 0.9% 100 ML IVPB SCH (20:30)
[2020-04-06] MEDS: Sodium Chloride 0.9% 1,000 ML IV SCH (20:55)
[2020-04-06] MEDS ORDERED: Famotidine/PF 20 mg/2ml Vial SLOW IVP SCH (21:00)
[2020-04-06] MEDS: Acetaminophen 500 MG TAB PO SCH (21:24)
[2020-04-06] MEDS: Senokot S 8.6-50 MG TAB PO SCH (21:24)
[2020-04-07] MEDS: Sodium Chloride 0.9% 1,000 ML IV SCH ×3 (00:01→15:01)
--- NOTE | 2020-04-07 00:12 | OP ---
DATE OF PROCEDURE: 04/06/2020 PREOPERATIVE DIAGNOSIS: Right bimalleolar ankle fracture, grade 3 open. POSTOPERATIVE DIAGNOSIS: Right bimalleolar ankle fracture, grade 3 open. PROCEDURES PERFORMED: 1. Open reduction and internal fixation of right lateral malleolus. 2. Repair of right deltoid ligament and extensor retinaculum. 3. Irrigation and debridement of open right ankle fracture. ANESTHESIA: General. HELIOTHERAPIST: Geovani Howard PA-C TOURNIQUET TIME: 66 minutes at 300 mmHg. IMPLANTS: Synthes 8-hole 1/3 tubular plate. COMPLICATIONS: None. DRAINS: None. SPECIMEN: None. OUTCOME: Near-anatomic alignment. INDICATIONS FOR PROCEDURE: The patient is a 74-year-old lady, who sustained a ground level fall with subsequent open bimalleolar ankle fracture with just a very small avulsion type injury from the tip of the medial malleolus, but the medial malleolus breaking through the skin, exposing the joint with a laceration of approximately 10 cm. Given this open injury and the displacement, we have discussed with the patient the need for irrigation, debridement and stabilization. I have discussed the case with her daughter by phone and I believe all are in agreement to proceed with this surgery on an urgent basis given the open nature of the fracture. The patient now taken to the operating room. DESCRIPTION OF PROCEDURE: The patient was brought to the operating room and time-out performed followed by induction of general anesthesia. Next, she was positioned supine on the OR table and a sterile prep and drape performed of this right lower extremity. Next, attention was placed on the medial side of the wound. There was found to be this large 10 cm laceration with exposed medial malleolus and distal tibial articular surface. No foreign debris was encountered. This was irrigated with 3 L of normal saline and no devitalized tissue was encountered. The hematoma was swept from this wound. Next, once thoroughly irrigated, the ankle subluxation was reduced. The deltoid ligament identified and Vicryl sutures were placed in the deltoid to provide some stability medially. She was also found to have a large tear of the extensor retinaculum. This was brought up to a near anatomic alignment and repaired with sutures as well, providing further stability on the medial side of the ankle. This wound was then again irrigated and then closed in layers with some 2-0 Vicryl subcutaneously and then nylon for the skin getting loose approximation of the skin edges. Next, an incision was made laterally overlying the lateral malleolus fracture. It should be noted that she had a previous skin tear more proximal to this area. However, this did not require any change in the normal surgical incision for an open reduction and internal fixation of the lateral malleolus. Once a lateral skin incision was made, dissection was carried down bluntly exposing the fracture. The fracture was reduced and held in place with bone tenaculum. Next, two anterior to posterior interfragmentary compression screws were applied and then an 8-hole 1/3 tubular neutralization plate applied to the lateral cortex of the distal fibula. This was held in place with a total of three cancellous screws distally and three cortical screws proximally. At the completion of this, AP, lateral and mortise views of the ankle were obtained that showed near-anatomic alignment of this fracture. The lateral incision was then closed in layers with 0 Vicryl followed by 2-0 Vicryl and nylon. Xeroform gauze, Webril, and fiberglass splint were applied to the ankle. Tourniquet was let down with total time of 66 minutes and then patient was transferred to recovery room in stable condition. There were no complications. She tolerated the procedure well. Job ID: [id number]
[2020-04-07 00:29] VITALS: BMI 38.7
--- NOTE | 2020-04-07 01:11 | PRG ---
DATE OF SERVICE: 04/06/2020 SUBJECTIVE: The patient was seen during evening rounds, resting comfortably in no acute distress. The patient is postop open reduction and internal fixation of her right lateral malleolus fracture and irrigation and debridement from her grade 3 fracture. The patient's pain has been well controlled postop. OBJECTIVE: VITAL SIGNS: Stable, afebrile. GENERAL: Elderly female, sleeping in hospital bed, in no acute distress. RESPIRATORY: Equal chest rise and fall, respirations are even and nonlabored. IMPRESSION: 1. Status post multiple recent falls at her assisted living center. 2. Right open distal tib-fib fracture, dislocation, status post repair. 3. Repair of right deltoid ligament extensor retinaculum. 4. Acute kidney injury on chronic kidney disease, stage 4. 5. Urinary tract infection on admission, recent Macrobid use. Culture on 04/01/2020, positive for beta-hemolytic strep. PLAN: Continue pain regimen and supportive care. Have Physical and Occupational Therapy work with the patient in the morning. Renal low-protein and diabetic diet. Urine sent for cultures. The patient is getting Ancef 2 g daily, which should cover her current UTI. We will await for new culture and sensitivity and adjust antibiotic regimen if needed. We will restart the patient's home medications. Hold parameters will be placed on her blood pressure medications. We will continue to monitor urinary output. Job ID: [id number]
[2020-04-07] MEDS: Acetaminophen 500 MG TAB PO SCH ×5 (03:47→22:31)
[2020-04-07 06:30] LABS: Lactic Acid 1.2 mmol/L (0.5-2.2)
[2020-04-07 06:31] LABS: Hemoglobin 8.1 g/dL (12.0-16.0); Mean Corpuscular HGB CONC 28.9 g/dL (32.0-36.0); Mean Corpuscular Hemoglobin 21.7 pg (27.0-31.0); Mean Corpuscular Volume 75.2 fL (78.0-98.0); Mean Platelet Volume 10.2 fL (7.4-10.4); Platelet Count 182 thou/uL (130-400); RBC Distribution Width 18.1 % (11.5-14.5); Red Blood Cell (RBC) Count 3.74 mill/uL (4.20-5.40); White Blood Cell (WBC) Count 12.9 thou/uL (4.8-10.8)
[2020-04-07 06:32] LABS: Anion Gap 15 mmol/L (10-20); BUN (Urea Nitrogen) 20 mg/dL (9.8-20.1); Calc. Creatinine Clearance 64 mL/min (70-130); Calcium 8.8 mg/dL (7.8-10.44); Carbon Dioxide 24 mmol/L (23-31); Chloride 104 mmol/L (98-107); Estimated GFR-MDRD 39; Glucose 273 mg/dL (83-110); Magnesium 1.9 mg/dL (1.6-2.6); Phosphorus 3.7 mg/dL (2.3-4.7); Potassium 5.3 mmol/L (3.5-5.1); Sodium 138 mmol/L (136-145)
[2020-04-07 06:53] LABS: Anisocytosis SLIGHT = 6-15 cells (100X) (0-5/hpf); Band 3 % (5-11); Hypochromia SLIGHT = 6-15 cells (100X) (0-5/hpf); Lymphocytes 10 % (21-51); MDiff Complete? YES; Microcytosis SLIGHT = 6-15 cells (100X) (0-5/hpf); Monocytes 3 % (0-10); Neutrophil 84 % (42-75)
[2020-04-07] MEDS ORDERED: Magnesium 2 GM/50 ML 2 GM in Premix Bag 1 BAG IVPB SCH (07:45)
[2020-04-07] MEDS ORDERED: Sodium Chloride 0.9% 500 ML IV SCH (07:45)
[2020-04-07] MEDS: Metoprolol Tartrate 50 MG TAB PO SCH ×2 (09:00→22:31)
[2020-04-07] MEDS: Escitalopram Oxalate 20 mg Tablet PO SCH (09:00)
[2020-04-07] MEDS: Senokot S 8.6-50 MG TAB PO SCH ×2 (09:01→22:31)
[2020-04-07] MEDS: Losartan 25 MG TAB PO SCH (09:01)
[2020-04-07] MEDS: Hydroxychloroquine Sulfate 200 MG TAB PO SCH ×2 (09:01→22:32)
[2020-04-07] MEDS: Doxepin HCl 25 MG CAP PO SCH (09:02)
[2020-04-07] MEDS: Folic Acid 1 MG TAB PO SCH (09:02)
[2020-04-07] MEDS: Aspirin 81 mg Enteric Coated Tablet PO SCH ×2 (09:02→22:31)
[2020-04-07] MEDS: traMADol HCl 50 MG TAB PO PRN ×2 (09:15→22:30)
[2020-04-07] MEDS: Polyethylene Glycol 3350 17 GM Packet PO SCH (09:16)
[2020-04-07] MEDS ORDERED: cefTRIAXone\\ROCEPHIN 2 GM in Sodium Chloride 0.9% 100 ML IVPB SCH ×2 (11:30→15:00)
[2020-04-07] MEDS: predniSONE 20 MG TAB PO SCH (13:14)
[2020-04-07] MEDS: Insulin Regular 300 UNITS/3 ML VIAL SC PRN ×2 (13:15→18:13)
[2020-04-07] MEDS: Lorazepam 1 MG TAB PO PRN (13:15)
--- NOTE | 2020-04-07 16:02 | PRG ---
DATE OF SERVICE: 04/07/2020 SUBJECTIVE: The patient was seen this morning on rounds with Dr. Donahue. The patient was awake and alert. However, she is persistently confused. She went to the OR yesterday for fixation of her right open tib-fib fracture. OBJECTIVE: VITAL SIGNS: Temperature 97.9, pulse 110, respirations 14, oxygen saturation 94% on room air, and blood pressure 135/76. GENERAL: Elderly female, sitting up in bed with no signs of acute distress. PULMONARY: Equal chest rise and fall, clear breath sounds bilaterally. No signs of acute respiratory distress. CARDIAC: Tachycardic, but regular rhythm. No murmurs, gallops, or rubs. GI: Abdomen is soft, nontender, and nondistended. EXTREMITIES: 2+ pulses in all extremities. Gross motor and sensation intact. No significant swelling noted. NEURO: GCS is 13, -2 for verbal. Pupils are equal, round, and reactive to light bilaterally. LABORATORY FINDINGS: White count 12.9, hemoglobin 8.1, hematocrit 28.1, and platelets 182. Sodium 138, potassium 5.4, chloride 104, bicarb 22, BUN 20, creatinine 1.34, glucose 273, lactic acid 1.2, phosphorus 3.7, and magnesium 1.9. DIAGNOSTIC FINDINGS: There are no new diagnostic findings to report. ASSESSMENT: 1. Status post multiple recent falls. 2. Right open tib-fib fracture, status post repair. 3. Acute kidney injury on chronic kidney disease 4, improving. 4. Altered mental status, persistent. 5. Persistent urinary tract infection. 6. Tachycardia, likely due to dehydration. 7. History of renal cancer with mets to the lungs on hospice for the past year, chronic kidney disease four, diabetes, hypertension, weakness, central nervous system lupus, coronary artery disease, dementia, anxiety, and depression. PLAN: Continue diabetic diet. Continue normal saline at 100 an hour. The patient to receive one 500 mL bolus over 2 hours for low urinary output and tachycardia, closely monitor for subsequent fluid overload. Continue Rocephin for urinary tract infection and prophylaxis for surgery. We have sent a urine culture and we are pending and results and sensitivities, we will deescalate antibiotics at that time. Start aspirin 81 mg b.i.d. for DVT prophylaxis. They are working with Physical and Occupational Therapy. We will closely monitor her vital signs and her mentation to avoid sepsis. The patient might well likely need placement at a fci facility when she is ready for discharge. This patient was seen and evaluated by Dr. Donahue and myself this morning during rounds. Job ID: [id number]
[2020-04-07] MEDS: Pregabalin 50 MG CAP PO SCH (22:32)
[2020-04-08] MEDS: Lorazepam 1 MG TAB PO PRN (00:25)
--- NOTE | 2020-04-08 02:20 | PRG ---
DATE OF SERVICE: 04/07/2020 SUBJECTIVE: The patient was seen on the surgical floor, resting comfortably, in no acute distress. The patient is postop day #2, status post repair of her right lateral malleolus fracture. The patient had some low urinary output earlier this morning and was given 500 mL bolus of normal saline. The patient's output did improve. OBJECTIVE: VITAL SIGNS: Stable, afebrile. GENERAL: Elderly female, lying in hospital bed, in no acute distress. PULMONARY: Equal chest rise and fall. RESPIRATIONS: Even and nonlabored. ASSESSMENT: 1. Status post multiple recent falls. 2. Right open tibia-fibula fracture, status post repair. 3. Acute kidney injury on chronic kidney disease, stage 4, improving. 4. Altered mental status, persistent. 5. Persistent urinary tract infection. 6. Tachycardia, resolved. 7. History of renal cancer with metastasis to the lungs on hospice for the past year, chronic kidney disease stage 4, diabetes, hypertension, general weakness, central nervous system lupus, coronary artery disease, dementia, anxiety, and depression. PLAN: Continue diabetic diet. Continue supportive care and pain regimen. We will discontinue the patient's maintenance IV fluids and continue to monitor urinary output. We will continue Rocephin for urinary tract infection and prophylaxis for surgery. Urine culture and sensitivities are pending. Once received, we will deescalate antibiotics. Aspirin for VTE prophylaxis. Increase physical and occupational therapy. Once the patient is ready for discharge, she will likely go back to [facility] or [facility]. Job ID: [id number]
[2020-04-08] MEDS: Acetaminophen 500 MG TAB PO SCH ×4 (04:28→21:40)
[2020-04-08 06:04] LABS: Anion Gap 10 mmol/L (10-20); BUN (Urea Nitrogen) 17 mg/dL (9.8-20.1); Calc. Creatinine Clearance 78 mL/min (70-130); Carbon Dioxide 27 mmol/L (23-31); Chloride 106 mmol/L (98-107); Estimated GFR-MDRD 48; Glucose 127 mg/dL (83-110); Magnesium 2.2 mg/dL (1.6-2.6); Phosphorus 2.5 mg/dL (2.3-4.7); Potassium 5.2 mmol/L (3.5-5.1); Sodium 138 mmol/L (136-145)
[2020-04-08 06:40] LABS: Hemoglobin 8.6 g/dL (12.0-16.0); Mean Corpuscular HGB CONC 28.7 g/dL (32.0-36.0); Mean Corpuscular Volume 76.6 fL (78.0-98.0); Mean Platelet Volume 8.9 fL (7.4-10.4); Platelet Count 184 thou/uL (130-400); RBC Distribution Width 18.1 % (11.5-14.5); Red Blood Cell (RBC) Count 3.92 mill/uL (4.20-5.40); White Blood Cell (WBC) Count 12.8 thou/uL (4.8-10.8)
[2020-04-08 07:01] LABS: Band 4 % (5-11); Eosinophils 2 % (0-10); Lymphocytes 15 % (21-51); MDiff Complete? YES; Monocytes 7 % (0-10); Neutrophil 72 % (42-75)
[2020-04-08] MEDS ORDERED: Furosemide 20 MG/2 ML VIAL SLOW IVP SCH (08:30)
[2020-04-08] MEDS: Aspirin 81 mg Enteric Coated Tablet PO SCH ×2 (09:09→21:40)
[2020-04-08] MEDS: Polyethylene Glycol 3350 17 GM Packet PO SCH (09:09)
[2020-04-08] MEDS: Metoprolol Tartrate 50 MG TAB PO SCH ×2 (09:10→21:40)
[2020-04-08] MEDS: predniSONE 20 MG TAB PO SCH (09:10)
[2020-04-08] MEDS: Doxepin HCl 25 MG CAP PO SCH (09:10)
[2020-04-08] MEDS: Escitalopram Oxalate 20 mg Tablet PO SCH (09:10)
[2020-04-08] MEDS: Senokot S 8.6-50 MG TAB PO SCH ×2 (09:10→21:41)
[2020-04-08] MEDS: Losartan 25 MG TAB PO SCH (09:10)
[2020-04-08] MEDS: Hydroxychloroquine Sulfate 200 MG TAB PO SCH ×2 (09:10→21:40)
[2020-04-08] MEDS: Folic Acid 1 MG TAB PO SCH (09:11)
[2020-04-08] MEDS ORDERED: cefTRIAXone\\ROCEPHIN 2 GM in Sodium Chloride 0.9% 100 ML IVPB SCH (12:00)
[2020-04-08 13:48] LABS: Anion Gap 11 mmol/L (10-20); BUN (Urea Nitrogen) 17 mg/dL (9.8-20.1); Calc. Creatinine Clearance 76 mL/min (70-130); Calcium 9.1 mg/dL (7.8-10.44); Carbon Dioxide 28 mmol/L (23-31); Chloride 106 mmol/L (98-107); Estimated GFR-MDRD 47; Glucose 141 mg/dL (83-110); Potassium 4.9 mmol/L (3.5-5.1); Sodium 140 mmol/L (136-145)
--- NOTE | 2020-04-08 19:53 | PQF ---
ARIA ROSSEY REBECCAKAE [id number] SURG A- 3338 [id number] CLINICAL DOCUMENTATION IMPROVEMENT CLARIFICATION FORM: ICD-10 Updated PLEASE DO AN ADDENDUM TO THE PROGRESS NOTE WITH ANY DOCUMENTATION UPDATES OR ADDITIONS AND CARRY THROUGH TO DC SUMMARY. THANK YOU. DATE: 04/08/2020,04/09/2020 ATTN: BRIAN BECERRA Please exercise your independent, professional judgment in responding to the clarification form. Clinical indicators are provided on the bottom of this form for your review. Please check appropriate box(s): [ ] Acute Respiratory Failure: [ ] with Hypoxia [ ] with Hypercapnia [ ] Acute On Chronic Respiratory Failure: [ ] with Hypoxia [ ] with Hypercapnia [ ] Acute Respiratory Failure due to: (etiology) [ x ] Chronic Respiratory Failure only [ x ] with Hypoxia [ ] with Hypercapnia [ ] Hypoxia [ ] Other diagnosis [ ] Unable to determine In addition, please specify: Present on Admission (POA): [ x ] Yes [ ] No [ ] Unable to determine For continuity of documentation, please document condition throughout progress notes and discharge summary. Thank You. CLINICAL INDICATORS - SIGNS / SYMPTOMS / LABS / RESULTS AND LOCATION IN MR 04/07 O2 SAT 87% > 89% RA; > 98% 2L/NC , PULSE 113 04/06 H&P ( [facility]) PMH: RENAL CANCER WITH METS TO THE LUNG, HAS BEEN ON HOSPICE FOR THE PAST FOUR YEARS. 04/07 PN (REBECCA) ASSESSMENT: ALTERED MENTAL STATUS, PERSISTENT; TACHYCARDIA RISK: HX : RENAL CANCER W/ METS TO LUNGS, ADVANCED AGE ( 74) , RECENT ORIF TIB/FIB FX ( H&P/[facility]) 04/06 TREATMENTS: SUPPLEMENTAL OXYGEN ( 04/06 - PRESENT) Acute Respiratory Failure: ABG pH < 7.35 or > 7.45; Decreased oxygen saturation (<90% room air or < 95% on oxygen); PCO2 > 50 mm Hg; PO2 < 60 mm Hg; Labored or rapid respirations ARDS: Dx Criteria [Foster ARDS]: Respiratory symptoms within one week of a known clinical insult (e.g. shock, infection, surgery, trauma) Bilateral opacities in CXR/Chest CT not due to CHF or fluid THANK YOU! ODILIA (This form is maintained as a part of the permanent medical record) 2014 [facility], [employer]. All Rights Reserved [email or web address] [email or web address]
[2020-04-08] MEDS: Pregabalin 50 MG CAP PO SCH (21:40)
--- NOTE | 2020-04-09 01:21 | PRG ---
DATE OF SERVICE: 04/09/2020 SUBJECTIVE: The patient is currently on the surgical floor. She was scheduled to be discharged today to go to the [facility], but due to not voiding, she was unable to be accepted at that facility. At the time of my visit, bladder scan showed approximately 160 mL in the bladder, but the patient did have soaked diaper, which was weighed and calculated to be 300 mL out. This is adequate for her weight and she will most likely be able to be discharged to this care facility in the morning. Otherwise, the patient was doing well and the nurses reported no events. At the time of my visit, she appeared comfortable. ASSESSMENT AND PLAN: 1. Status post multiple recent falls. 2. Status post open reduction and internal fixation of right open tib-fib fracture. 3. Acute on chronic kidney disease, stage 4, improving. 4. Altered mental status, persistent. 5. Persistent urinary tract infection. 6. History of renal cancer with metastasis to the lung on hospice for the past year. Plan will be to continue supportive care and discharge the patient per today's instructions. Job ID: [id number]
[2020-04-09] MEDS: traMADol HCl 50 MG TAB PO PRN (01:39)
[2020-04-09] MEDS: Lorazepam 1 MG TAB PO PRN (02:18)
[2020-04-09] MEDS: Acetaminophen 500 MG TAB PO SCH ×2 (03:22→08:28)
[2020-04-09] MEDS: Losartan 25 MG TAB PO SCH (08:28)
[2020-04-09] MEDS: Senokot S 8.6-50 MG TAB PO SCH (08:28)
[2020-04-09] MEDS: Escitalopram Oxalate 20 mg Tablet PO SCH (08:28)
[2020-04-09] MEDS: Aspirin 81 mg Enteric Coated Tablet PO SCH (08:28)
[2020-04-09] MEDS: Polyethylene Glycol 3350 17 GM Packet PO SCH (08:28)
[2020-04-09] MEDS: Folic Acid 1 MG TAB PO SCH (08:28)
[2020-04-09] MEDS: Metoprolol Tartrate 50 MG TAB PO SCH (08:28)
[2020-04-09] MEDS: predniSONE 20 MG TAB PO SCH (08:28)
[2020-04-09] MEDS: Doxepin HCl 25 MG CAP PO SCH (08:28)
[2020-04-09 08:42] VITALS: BP 187/92; TEMP 98.2
[2020-04-09] MEDS: Hydroxychloroquine Sulfate 200 MG TAB PO SCH (09:15)
--- NOTE | 2020-04-09 13:58 | PRG ---
DATE OF SERVICE: 04/09/2020 SUBJECTIVE: She continues to be confused, but she is sitting up right in bed right now. Nurses are helping her eat. Tech is present also helping ini doing vital signs: She is answering a few questions, but they are not appropriate answers, but she seems comfortable. ASSESSMENT: Stable. PLAN: Her vital signs have been stable. I think at this point, if she is cleared by Trauma, she should be ready to go back to her care facility once they are ready to take her. Job ID: [id number]
--- NOTE | 2020-04-10 11:23 | PQF ---
ARIA ROSS AMY [id number] [facility] A 3338 [id number] CLINICAL DOCUMENTATION CLARIFICATION FORM: POST DISCHARGE Addendum to original discharge summary date: ____ Late entry note date: __ DATE: 04/10/2020 ATTN: KAE FERNANDEZ Please exercise your independent, professional judgment in responding to the clarification form. Clinical indicators are provided on the bottom of this form for your review Please check appropriate box(s): [ ] Encephalopathy: Type: [ ] Acute [ ] Subacute [ ] Chronic Etiology: [ ] Hypertensive [ ] Metabolic [ ] Toxic [ ] Hepatic with Coma [ ] Hepatic w/o Coma [ ] Hypoxic [ ] Septic [ ] Drug induced: [ ] Unspecified [ X ] in the setting of underlying dementia [ ] Other (please specify) [ ] Transient Alteration of Awareness [X ] Other diagnosis __Renal Ca with mets to lungs___ [ X ] Unable to determine In addition, please specify: Present on Admission (POA): [X ] Yes [ ] No [ ] Unable to determine For continuity of documentation, please document condition throughout progress notes and discharge summary. Thank You. CLINICAL INDICATORS - SIGNS / SYMPTOMS / LABS - Altered mental status, unsure chronicity or severity of current change-H&P, , Livier Combs - It is likely that her altered mental status has been caused by combination of UTI and dehydraion- -H&P, 04/06, Livier Combs - Slightly elevated lactic acid- -H&P, 04/06, Livier Combs - status post multiple recent falls at her assisted living center--H&P, 04/06, Livier Combs - Lactic acid: 23H on 04/06- Laboratory report, RISK FACTORS - Acute kidney injury- -H&P, 04/06, Livier Combs - Hx of dementia--H&P, 04/06, Livier Combs - UTI--H&P, 04/06, Livier Combs TREATMENTS: - Lactase.PO- 04/07 - Sodium chloride.IV- MAR, 04/06 (This form is maintained as a part of the permanent medical record) 2014 [employer], [employer]. All Rights Reserved Sonia [email or web address]
== END 2020-04-09 09:30 | disposition hospice, inpatient (51) | DRG 493 ==
LOC: ERS 10:34 → SDC 14:08 → SURG A 19:18
PROVIDERS: ADMIT Surgery; ATTEND Surgery
PROC: 0QSJ04Z Reposition Right Fibula with Internal Fixation Device, Open Approach (ICD-10-PCS; principal; 2020-04-06)
PROC: 0QSG04Z Reposition Right Tibia with Internal Fixation Device, Open Approach (ICD-10-PCS; 2020-04-06)
DX: S82.54 Nondisplaced fracture of medial malleolus of right tibia (principal); N18.4 Chronic kidney disease, stage 4 (severe); N17.9 Acute kidney failure, unspecified; C64.9 Malignant neoplasm of unspecified kidney, except renal pelvis; C78.02 Secondary malignant neoplasm of left lung; C78.01 Secondary malignant neoplasm of right lung; N39.0 Urinary tract infection, site not specified; J96.11 Chronic respiratory failure with hypoxia; Z66 Do not resuscitate; Z51.5 Encounter for palliative care; S82.64 Nondisplaced fracture of lateral malleolus of right fibula; F32.9 Major depressive disorder, single episode, unspecified; E86.0 Dehydration; E78.5 Hyperlipidemia, unspecified; I12.9 Hypertensive chronic kidney disease with stage 1 through stage 4 chronic kidney disease, or unspecified chronic kidney disease; W18.30XA Fall on same level, unspecified, initial encounter; I25.10 Atherosclerotic heart disease of native coronary artery without angina pectoris; F03.90 Unspecified dementia, unspecified severity, without behavioral disturbance, psychotic disturbance, mood disturbance, and anxiety; F41.9 Anxiety disorder, unspecified; Z95.5 Presence of coronary angioplasty implant and graft; Z87.440 Personal history of urinary (tract) infections; I25.2 Old myocardial infarction
CPT/HCPCS: 36415; 36416; 51702; 70450; 71045; 76000; 80048; 81001; 83605; 83735; 83880; 84100; 85007; 85027; 86850; 86900; 86901; 87086; 93005; 96374; C1713; G0390; J0690; J0696; J1100; J1815; J1940; J2001; J2270; J2405; J2704; J3010; J3370; J3475; J3490; J7512; S0028